=== PATIENT | male | born 1945 | race Caucasian/White ===

== ENCOUNTER → 2018-01-03 | Day surgery (SDC) | payer OTHER ==
[~2018-01-03] MED LIST: FENTANYL CITR 100 MCG/2 ML ONE; FLUMAZENIL 0.1 MG/ML (5 mL VIAL) IV ONE; MIDAZOLAM HCL 2 MG/2 ML INJ ONE
--- OUTSIDE RECORDS SUMMARY | 2018-01-03 08:58 | XMS REPORT ---
:1945 Author Organization [facility] Address [address] [place] [address] Dr. Brown [address] [place] [address] Care Team Providers Name Role Phone CLINTON ACUNA Unavailable Unavailable Problems This patient has no known problems. Allergies, Adverse Reactions, Alerts This patient has no known allergies or adverse reactions. Medications This patient has no known medications. Results Test Description Test Time Test Comments Text Results Atomic Results Result Comments TISSUE EXAM 2016-08-31 15:59:00 Surgical Pathology Report Case: [id number] Authorizing Provider: Clinton Acuna MD Collected: 08/30/2016 0909 Ordering Location: [facility] Endoscopy Received: 08/30/2016 1532 Services Pathologist: Feroz Xiao MD Specimens: A) - Polyp, Colon - Sigmoid, sigmoid polyp B) - Rectum, rectal polyp A. 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 RECTAL POLYP, BIOPSY- FRAGMENTS OF TUBULOVILLOUS ADENOMA- NO DYSPLASIA SEEN AT CAUTERIZED RESECTION MARGIN- NO HIGH-GRADE DYSPLASIA AND NO MALIGNANCY IDENTIFIED 32555 x 2Rectal massA. Sigmoid colon polypB. Rectal polypSpecimen is received in two containers of formalin both labeled with the patient's information.Specimen A: Labeled "sigmoid colon polyp" consists of a suarez-red polyp measuring 3.5 x 2.5 x 1.5 cm. The resection margin is inked blue. The specimen is serially sectioned from one end to the other and submitted entirely in A1-A8.Specimen B: Labeled "rectal polyp" consists of three polyps all measuring 1 cm in greatest dimension with a smaller fragment of suarez tissue 0.6 cm. The polyps are inked with the resection margins bisected and submitted entirely as follows: B1, one polyp; B2, one polyp bisected; B3, one polyp bisected with smaller fragment of tissue. CG/ew A. 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 The lamina propria has mildly increased acute and chronic inflammation. No dysplasia is seen at cauterized resection margin. High-grade dysplasia and malignancy are not seen. B. A. Sections reveal fragments of tubulovillous adenoma with glands and villi showing proliferation of adenomatous epithelium with nuclear stratification. The lamina propria has mildly increased acute and chronic inflammation. No dysplasia is seen at cauterized resection margin. High-grade dysplasia and malignancy are not seen.
--- OUTSIDE RECORDS SUMMARY | 2018-01-03 08:58 | XMS REPORT | Clinical Summary ---
:1945 Author Organization [facility] Address [address] [place] [address] Care Team Providers Name Role Phone Nimesh Bowman MD Primary Care Provider Allergies No Known Allergies Current Medications No known medications Active Problems Problem Noted Date ALIZE (acute kidney injury) (HCC) 07/17/2016 Abdominal aneurysm (HCC) 07/16/2016 S/P abdominal aortic aneurysm repair 07/16/2016 Lethargy 07/16/2016 Anemia due to blood loss 07/16/2016 Thrombocytopenia (HCC) 07/16/2016 Mild Hypercapnia 07/16/2016 Oliguria 07/16/2016 Pre-procedural cardiovascular examination 07/04/2016 Overview: Added automatically from request for surgery [id number] Abdominal aortic aneurysm (AAA) without rupture (HCC) 06/28/2016 Tobacco dependence 06/28/2016 Essential hypertension 06/28/2016 Abnormal stress ECG with treadmill 06/28/2016 Social History Tobacco Use Types Packs/Day Years Used Date Current Every Day Smoker Cigarettes 2 43 Smokeless Tobacco: Never Used Comments: 40 years Alcohol Use Drinks/Week oz/Week Comments Yes 12-16 /every 1 1/2 weeks Sex Assigned at Date Recorded Not on file Last Filed Vital Signs Not on file Plan of Treatment Health Maintenance Due Date Last Done Comments COLON CANCER SCREENING 1993 SHINGRIX VACCINE (#1) 1993 ZOSTER VACCINE 2003 PNEUMOCOCCAL POLYSACCHARIDE VACCINE AGE 65 AND OVER 01/27/2008 PNEUMOCOCCAL-13 01/27/2008 INFLUENZA VACCINE 09/25/2017 Implants Implanted Type Area Senior Controls Technician Device Expiration Model / Identifier Date Serial / Lot Rivera Merino Vasclr Ptfe [id number] 1.65mm - [id number] Vascular N/A: N/A BARD [id number] / Implanted: 07/16/2016 (Quantity not on file) Graft PERIPHERAL / VASCULAR Graft Vasclr Hemashield [place] Thor 2velr Woven 30cm 24mm - [id number] Vascular N/A: Aorta, [employer] 03/27/2021 [id number] / Implanted: 07/16/2016 (Quantity not on file) Graft Abdominal СВЕТЛАНА [id number] / [id number] Results Not on fileafter 01/02/2017 Insurance Payer Benefit Plan / Group Subscriber ID Type Phone Address [facility] x[facility]xxx O Home: [address] [phone] [place] [phone]
--- OUTSIDE RECORDS SUMMARY | 2018-01-03 08:58 | XMS REPORT | Clinical Summary ---
:[address] [facility] Address [address] [place] [address] Care Team Providers Name Role Phone Nimesh Bowman Primary Care Provider Allergies No Known Allergies Medications Medication Sig Dispensed Refills Start Date End Date Status metoprolol (LOPRESSOR) Take 25 mg by 0 Active 25 MG tablet mouth 2 (two) times daily. atorvastatin (LIPITOR) Take 20 mg by 0 Active 20 MG tablet mouth daily. amLODIPine (NORVASC) 5 Take 5 mg by 0 Active MG tablet mouth daily. aspirin 81 MG EC tablet Take 81 mg by 0 Active mouth daily. Active Problems Not on file Social History Tobacco Use Types Packs/Day Years Used Date Former Smoker Quit: 07/16/2016 Smokeless Tobacco: Never Used Tobacco Cessation: Counseling Given: Yes Alcohol Use Drinks/Week oz/Week Comments No Sex Assigned at Date Recorded Not on file Job Start Date Occupation Industry Not on file Not on file Not on file Travel History Travel Start Travel End No recent travel history available. Last Filed Vital Signs Not on file Plan of Treatment Not on file Results Not on fileafter 01/02/2017 Insurance Payer Benefit Plan / Group Subscriber ID Type Phone Address [facility] ChurchPairingSPRING ALL xxxxxxxx Maps Contracted (Home) RO[address] [place] [phone]
[2018-01-03 09:54] LABS: MPV 9.8 fL (7.6-11.3)
[2018-01-03 09:56] LABS: Protime INR 1.15
[2018-01-03 10:25] LABS: Platelet Estimate ADEQ
--- NOTE | 2018-01-03 14:55 | RAD REPORT ---
EXAM DESCRIPTION: US - Biopsy Lymph Node - 01/03/2018 11:40 am CLINICAL HISTORY: Right neck mass. COMPARISON: December 25, 2017. TECHNIQUE: The risks, benefits and alternatives to the procedure were explained to the patient and i nformed consent obtained. Skin and subcutaneous tissues were anesthetized with Lidocaine. Under sonog raphic guidance a 17-gauge needle was placed into the 3.3 cm solid mass within the right posterolater al upper neck. Through this an 18-gauge needle was placed. Three 2 cm core specimens were obtained an d given to pathology. Preliminary report lymphoid material. The patient experienced no immediate complication. The patient was pre-medicated with 2.5 milligrams Versed and 75 micrograms fentanyl intravenously. Vi edward signs were monitored by a nurse. Conscious sedation was performed for approximately 40 minutes. IMPRESSION: Core biopsies of a mass within the right posterolateral neck.
== END | disposition home or self-care (01) ==
LOC: FNA 08:54
PROVIDERS: ATTEND Physician Assistant Medical
DX: R22.1 Localized swelling, mass and lump, neck (principal)
CPT/HCPCS: 36415; 38505; 76942; 85049; 85610; 85730; 88305; 88333; J2250 ×2; J3010

== ENCOUNTER 2018-02-05 07:54 | Day surgery (SDC) | payer OTHER ==
--- NOTE | 2018-01-28 12:01 | EKG ---
Test Date: 2018-01-28 Test Time: 11:29:29 Highway Administrative Engineer: LELAND MEASUREMENT RESULTS: Intervals: Rate: 54 AZ: 162 QRSD: 106 QT: 460 QTc: 436 [place]: P: 60 AZ: 162 QRS: 44 T: 161 INTERPRETIVE STATEMENTS: Sinus bradycardia ST & T wave abnormality, consider lateral ischemia Abnormal ECG Compared to ECG 03/13/2016 14:17:18 Possible ischemia now present Sinus rhythm no longer present Sinus arrhythmia no longer present Prolonged QT interval no longer present ST (T wave) deviation still present Electronically Signed On 01-28-18 12:00:14 PSYCHOLOGICAL AIDE by Juan Hoffman
[2018-01-28 13:30] LABS: MCH 31.7 pg (27.0-35.0); MCV 89.7 fL (80-100); MPV 11.5 fL (7.6-11.3); RBC Red Blood Cell Count 5.13 M/uL (4.33-5.43)
[2018-01-28 15:47] LABS: Blood Morphology Comment NOT SEEN (NOT SEEN); Platelet Estimate ADEQ; Platelets, Giant FEW
--- OUTSIDE RECORDS SUMMARY | 2018-02-05 07:59 | XMS REPORT | Clinical Summary ---
:1945 Author Organization [facility] Address [address] [place] [address] Care Team Providers Name Role Phone Nimesh [...] Not on file Results Not on fileafter 02/04/2017 Insurance Payer Benefit Plan / Group Subscriber ID Type Phone Address [facility] Shayne FoodsSPRING ALL xxxxxxxx Maps Contracted (Home) RO[address] [place] [phone]
--- OUTSIDE RECORDS SUMMARY | 2018-02-05 07:59 | XMS REPORT ---
:1945 [facility] Address [address] [place] [address] [address]. [address] [place] [address] Care Team Providers Name Role Phone CLINTON ACUNA Unavailable Unavailable Problems This patient has no known problems. Allergies, Adverse Reactions, Alerts This patient has no known allergies or adverse reactions. Medications This patient has no known medications. Results Test Description Test Time Test Comments Text Results Atomic Results Result Comments TISSUE EXAM 2016-08-31 15:59:00 Surgical Pathology Report Case: [id number] Authorizing Provider: Clinton Acuna MD Collected: 08/30/2016 0909 Ordering Location: [facility] Endoscopy Received: 08/30/2016 1532 Services Pathologist: [...] NO HIGH-GRADE DYSPLASIA AND NO MALIGNANCY IDENTIFIED [id number] x 2Rectal massA. Sigmoid colon polypB. Rectal [...]
--- OUTSIDE RECORDS SUMMARY | 2018-02-05 07:59 | XMS REPORT | Clinical Summary ---
:1945 Author Organization [facility] Address [address] [place] [address] Care Team Providers Name Role Phone Nimesh Bowman MD Primary Care Provider Allergies No Known Allergies Medications No known medications Active Problems Problem Noted Date ALIZE (acute kidney injury) 07/17/2016 Abdominal aneurysm 07/16/2016 S/P abdominal aortic aneurysm repair 07/16/2016 Lethargy 07/16/2016 Anemia due to blood loss 07/16/2016 Thrombocytopenia 07/16/2016 Mild Hypercapnia 07/16/2016 Oliguria 07/16/2016 Pre-procedural cardiovascular examination 07/04/2016 Overview: Added automatically from request for surgery [id number] Abdominal aortic aneurysm (AAA) without rupture 06/28/2016 Tobacco dependence 06/28/2016 Essential hypertension 06/28/2016 [...] Comments COLON CANCER SCREENING 1993 SHINGRIX VACCINE (1 of 2) 1993 ZOSTER VACCINE 2003 PNEUMOCOCCAL POLYSACCHARIDE VACCINE AGE 65 AND OVER 01/27/2008 PNEUMOCOCCAL-13 01/27/2008 INFLUENZA VACCINE 09/25/2017 Implants Implanted Type Area Postmaster Device Shelf Model / Identifier Expiration Serial / Lot Date [place] Perph Vasclr Ptfe [id number] 1.65mm - [id number] Vascular N/A: N/A BARD [id number] / Implanted: 07/16/2016 (Quantity not on file) Graft PERIPHERAL / VASCULAR Graft Vasclr Hemashield [place] Thor 2velr Woven 30cm 24mm - [id number] Vascular N/A: Aorta, [employer] 03/27/2021 [id number] / Implanted: 07/16/2016 (Quantity not on file) Graft Abdominal СВЕТЛАНА [id number] / [id number] Results Not on fileafter 02/04/2017 Insurance Payer Benefit Plan / Group Subscriber ID Type Phone Address [facility]ONDaintree NetworksADVENTHEALTH [facility] MCR ADV xxxxxxxx O Advance Directives Patient has advance care planning documents on file. For more information, please contact:Antoine Sanchez[address] [place] [address], [place] [address]
[2018-02-05] MEDS ORDERED: CEFAZOLIN 1GM (PREMIX IV) 1 GM/50 ML BAG ONE ×2 (08:19→08:20)
[2018-02-05] MEDS ORDERED: Ringers Lactate 1,000 ML IV ONE (08:19)
[2018-02-05] MEDS ORDERED: FENTANYL CITR 100 MCG/2 ML ONE (10:50)
[2018-02-05] MEDS ORDERED: PROPOFOL 200 MG/20 ML VIAL IV ONE (10:50)
[2018-02-05] MEDS ORDERED: LIDOCAINE 1% MPF 2 ML AMPULE ONE (10:51)
[2018-02-05] MEDS: MEPERIDINE HCL 25 MG/0.5 ML ONE ×2 (12:28→12:33)
[2018-02-05 14:34] VITALS: BP 137/66; TEMP 96.7; O2SAT 97
--- NOTE | 2018-02-06 02:56 | OP ---
Date of Procedure: 02/05/2018 Surgeon: Stefan Cedillo MD Preoperative Diagnoses: Lymphoma, left groin mass. Postoperative Diagnoses: Lymphoma, left groin mass. Procedure: Excision of left groin mass. Estimated Blood Loss: Minimal. Specimen: Left groin mass. Findings: Enlarged lymph node, diseased, positive for lymphoma. Anesthesia: General. Complications: None. Disposition: The patient tolerated the procedure in stable condition, taken to Recovery in good gene ral condition. Procedure In Detail: The patient was brought to the OR and placed in supine position. General anest hesia was begun. The patient was prepped and draped in usual sterile fashion. Marcaine 0.5% was inf iltrated locally. A 15-blade was used to make 4 cm oblique incision in the left groin. Subcutaneous tissue was divided, deep to the subcutaneous tissue, a lymph node was identified and then the pedicl e of the lymph node clamped and lymph node excised approximately 2.5 cm in diameter and sent to Patho logy. Touch prep revealed that indeed it was a lymphoma. The patient required more tissue for luis r delineation of the diagnosis. Subsequently, 3-0 silk used to tie off the pedicle. Wounds irrigate d, bleeding controlled with cautery. Then, 3-0 chromic used for subcutaneous tissue. Danisha were u sed to close the skin. Sterile dressing was applied. The patient was awakened and taken to Recovery in good general condition. Discharge Note: The patient will go to day surgery, then home when stable. Disposition: Home. Condition: Stable. Discharge Instructions: Resume home meds and diet. Activity as tolerated. No heavy lifting. Remov e outer dressing in 2 days. Shower. Keep wound clean and dry. Follow up in my office in 1 week. C all for appointment. Tylenol No. 3, 1 tablet p.o. q.4 p.r.n. pain. /MODL Voice ID: [id number] Report ID: [id number]
== END 2018-02-05 14:05 | disposition home or self-care (01) ==
LOC: OR 07:54
PROVIDERS: ATTEND Surgery
DX: C82.16 Follicular lymphoma grade II, intrapelvic lymph nodes (principal); R22.1 Localized swelling, mass and lump, neck; I10 Essential (primary) hypertension; F17.210 Nicotine dependence, cigarettes, uncomplicated
CPT/HCPCS: 36415; 85025; 88305; 88307; 88333; 93005; J0690; J2001; J2175; J2704; J3010

== ENCOUNTER 2018-02-17 09:39 | Emergency (ER) | payer OTHER ==
--- OUTSIDE RECORDS SUMMARY | 2018-02-17 09:42 | XMS REPORT ---
:1945 [facility] Address [address] [place] [address] [address] Care Team Providers Name Role Phone CLINTON ACUNA Unavailable Unavailable Problems This patient has no known problems. Allergies, Adverse Reactions, Alerts This patient has no known allergies or adverse reactions. Medications This patient has no known medications. Results Test Description Test Time Test Comments Text Results Atomic Results Result Comments TISSUE EXAM 2016-08-31 15:59:00 Surgical Pathology Report Case: [id number] Authorizing Provider: Clinton Acuna MD Collected: 08/30/2016 0909 Ordering Location: [facility] Endoscopy Received: 08/30/2016 1532 Services Pathologist: [...] NO HIGH-GRADE DYSPLASIA AND NO MALIGNANCY IDENTIFIED [id number] x 2Rectal massA. Sigmoid colon polypB. Rectal [...]
--- OUTSIDE RECORDS SUMMARY | 2018-02-17 09:42 | XMS REPORT | Clinical Summary ---
:1945 Author Organization [facility] Address [address] [place] [address] Care Team Providers Name Role Phone Nimesh [...] Not on file Results Not on fileafter 02/16/2017 Insurance Payer Benefit Plan / Group Subscriber ID Type Phone Address [facility]ASTEdventuresSPR[facility] COUNT INCLUDES THE [facility] OpenHatchSPRING ALL xxxxxxxx Maps Contracted (Home) ROAD [address] [place] [phone]
--- OUTSIDE RECORDS SUMMARY | 2018-02-17 09:42 | XMS REPORT | Clinical Summary ---
:1945 Author Organization [facility] Address [address] [place] [address] Care Team Providers Name Role Phone Nimesh [...] Overview: Added automatically from request for surgery [id number] Abdominal aortic aneurysm (AAA) without rupture 06/28/2016 [...] Last Done Comments COLON CANCER SCREENING 1993 SHINGLES VACCINES (1 of 2) 1993 PNEUMOCOCCAL POLYSACCHARIDE VACCINE AGE 65 AND OVER 01/27/2008 PNEUMOCOCCAL-13 01/27/2008 INFLUENZA VACCINE 09/25/2017 Implants Implanted Type Area Inspector Machined Parts Device Shelf Model / Identifier Expiration Serial / Lot Date [place] Perp Vasclr Ptfe [id number] 1.65mm - [id number] Vascular N/A: N/A BARD [id number] / Implanted: 07/16/2016 (Quantity not on file) Graft PERIPHERAL / VASCULAR Graft Vasclr Hemashield [place] Thor 2velr Woven 30cm 24mm - [id number] Vascular N/A: Aorta, [facility] 03/27/2021 [id number] / Implanted: 07/16/2016 (Quantity not on file) Graft Abdominal СВЕТЛАНА [id number] / [id number] Results Not on fileafter 02/16/2017 Insurance Payer Benefit Plan / Group Subscriber ID Type Phone Address [facility]MART[facility] BridesideH[facility] MCR ADV xxxxxxxx O Advance Directives Patient has advance care planning documents on file. For more information, please contact:Antoine Sanchez[address] [place] [address]
[2018-02-17 10:30] LABS: Absolute Lymphocytes (CBC) 1.4 K/uL (0.7-4.9); Absolute Monocytes 1.3 K/uL (0.1-1.3); Absolute Neutrophil 7.7 K/uL (1.8-8.0); Basophils % 0.9 % (0-1.3); Eosinophils % 2.7 % (0-4.4); Hematocrit 45.7 % (39.6-49.0); Lymphocytes % 12.9 % (15.3-44.8); MPV 10.6 fL (7.6-11.3); Monocytes % 11.9 % (3.3-12.3); RBC Red Blood Cell Count 5.08 M/uL (4.33-5.43)
[2018-02-17 10:34] LABS: Protime INR 1.16
[2018-02-17] MEDS ORDERED: METHYLPREDNISOLONE 125 MG INJ ONE (10:35)
[2018-02-17] MEDS ORDERED: CEFTRIAXONE/SWI 1gm 1 GM/10 ML SYR ONE (10:36)
[2018-02-17] MEDS ORDERED: IPRATROPIUM BROM 0.5MG/2.5ML ONE (10:36)
[2018-02-17] MEDS ORDERED: ALBUTEROL 2.5 MG/3 ML NEB SOL ONE (10:36)
[2018-02-17] MEDS ORDERED: AZITHROMYCIN 250 MG TAB ONE (10:36)
[2018-02-17 10:50] LABS: ALT/SGPT 26 U/L (12-78); AST/SGOT 20 U/L (15-37); Albumin 3.6 g/dL (3.4-5.0); Alkaline Phosphatase 97 U/L (45-117); BUN Blood Urea Nitrogen 16 mg/dL (7-18); Bicarbonate 29 mmol/L (21-32); Bilirubin Direct 0.2 mg/dL (0-0.2); Bilirubin Total 0.5 mg/dL (0.2-1.0); Glucose Level 79 mg/dL (74-106); Magnesium 2.4 mg/dL (1.8-2.4); Potassium 3.9 mmol/L (3.5-5.1); Protein, Total 7.8 g/dL (6.4-8.2); Sodium Level 139 mmol/L (136-145); Troponin (Emerg Dept Use Only) < 0.02 ng/mL (0.0-0.045)
--- NOTE | 2018-02-17 11:22 | ER ---
Nurse's Notes [facility] Name: Abraham Stark Age: 73 yrs Sex: Male : 1945 Arrival Date: 02/17/2018 Time: 09:41 Bed 5 Private MD: Nimesh Bowman E Diagnosis: Acute bronchitis;Other chronic obstructive pulmonary disease Presentation: 02/17 09:53 Presenting complaint: Patient states: SOB and productive cough that began 2-3 days ago. aa5 Transition of care: patient was not received from another setting of care. Onset of symptoms was January 2018. Risk Assessment: Do you want to hurt yourself or someone else? Patient reports no desire to harm self or others. Initial Sepsis Screen: Does the patient meet any 2 criteria? No. Patient's initial sepsis screen is negative. Does the patient have a suspected source of infection? No. Patient's initial sepsis screen is negative. Care prior to arrival: None. 09:53 Method Of Arrival: Ambulatory aa5 09:53 Acuity: KIERSTEN 3 aa5 Historical: - Allergies: 09:54 No Known Allergies; aa5 - PMHx: 09:54 Hypertension; aa5 - PSHx: 09:54 Hernia repair; Biopsy (Left groin); aa5 - Immunization history:: Pneumococcal vaccine is up to date, Flu vaccine is up to date. - Social history:: Smoking status: Patient uses tobacco products, smokes one pack cigarettes per day. Patient/guardian denies using alcohol, street drugs, The patient lives with family. - Ebola Screening: : No symptoms or risks identified at this time. - Family history:: not pertinent, pertinent for. Screenin:00 Abuse screen: Denies threats or abuse. Denies injuries from another. Nutritional sg screening: No deficits noted. Tuberculosis screening: No symptoms or risk factors identified. Never had TB. Fall Risk None identified. Assessment: 10:00 General: Appears in no apparent distress. comfortable, well groomed, well developed, sg well nourished, Behavior is calm, cooperative, appropriate for age. Pain: Denies pain. Neuro: No deficits noted. Cardiovascular: Heart tones S1 S2 present Capillary refill is brisk in bilateral fingers Patient's skin is warm and dry. Chest pain is denied. Respiratory: Airway is patent Respiratory effort is even, labored, Respiratory pattern is regular, symmetrical, Breath sounds with wheezes bilaterally. the patient has mild shortness of breath Parent/caregiver reports the patient having shortness of breath at rest , on exertion as well. GI: No signs and/or symptoms were reported involving the gastrointestinal system. : No signs and/or symptoms were reported regarding the genitourinary system. EENT: No signs and/or symptoms were reported regarding the EENT system. Derm: Skin is pink, warm \T\ dry. Musculoskeletal: No signs and/or symptoms reported regarding the musculoskeletal system. Vital Signs: 09:55 BP 146 / 73; Pulse 78; Resp 20 S; Temp 97.7(O); Pulse Ox 98% on R/A; Weight 95.25 kg aa5 (R); Height 5 ft. 9 in. (175.26 cm) (R); Pain 3/10; 09:55 Body Mass Index 31.01 (95.25 kg, 175.26 cm) aa5 09:55 Pt c/o body aching aa5 ED Course: 09:41 Patient arrived in ED. sb2 09:42 Nimesh Bowman MD is Private Physician. sb2 09:53 Triage completed. aa5 09:53 Arm band placed on. aa5 10:00 Patient has correct armband on for positive identification. Bed in low position. Call sg light in reach. Side rails up X2. case monitor on. Pulse ox on. NIBP on. Warm blanket given. Head of bed elevated. 10:07 Paxton Bhatt PA is PHCP. jr8 10:07 Polo Vaughan MD is Attending Physician. jr8 10:10 Paxton Bhatt PA is PHCP. jr8 10:14 Suhail Yates MD is Attending Physician. ma2 10:15 EKG done, by cardiology technician. reviewed by Suhail Yates MD. at1 10:21 Christopher Moore, JODY is Primary Nurse. sg 10:22 Inserted saline lock: 20 gauge in right antecubital area, using aseptic technique. ss Blood collected. 10:24 XRAY Chest (1 view) In Process Unspecified. EDMS Administered Medications: 10:23 Not Given (Other Intervention Used): Rocephin 1 grams IV at calculated rate once; Given sg slow IV push per pharmacy instructions 10:45 Drug: SOLU-Medrol 125 mg Route: IVP; Site: right antecubital; sg 11:20 Follow up: Response: No adverse reaction sg 10:45 Drug: Albuterol - atroVENT (3:1) (2.5 mg - 0.5 mg) 3 ml Route: Nebulizer; sg 11:47 Follow up: Response: No adverse reaction sg 10:45 Drug: AZITHromycin 500 mg Route: PO; sg 11:47 Follow up: Response: No adverse reaction sg 10:45 Drug: Rocephin 1 grams Route: IV; Rate: 1 bolus; Site: right antecubital; sg 12:00 Follow up: Response: No adverse reaction; IV Status: Completed infusion sg 11:50 Drug: Xopenex 1.25 mg Route: Inhalation; Outcome: 11:22 Discharge ordered by MD. sorenson 12:08 Patient left the ED. 3 Signatures: Dispatcher [employer] EDMS Christopher Moore RN RN sg Calderon, Audri, RN RN aa5 Adriana Barnes RN RN ss Roszak, Josh, PA PA jr8 Yuridia Cardona, trolley car overhauler EKG Tat1 Julianna Scott 3 Suhail Yates MD MD ma2 Billeau, Sheri sb2
--- NOTE | 2018-02-17 11:23 | EDPHYS ---
Physician Documentation [facility] Name: Abraham Stark Age: 73 yrs Sex: Male : 1945 Arrival Date: 02/17/2018 Time: 09:41 Bed 5 Private MD: Nimesh Bowman E ED Physician Suhail Yates HPI: 02/17 10:16 This 73 yrs old Male presents to ER via Ambulatory with complaints of ma2 Shortness Of Breath. 10:16 The patient has shortness of breath at rest. Onset: The symptoms/episode began/occurred ma2 gradually, 2 day(s) ago. Duration: The symptoms are continuous. Associated signs and symptoms: Pertinent positives: non-productive cough, Pertinent negatives: chest pain, fever, hemoptysis, loss of consciousness, nausea. Severity of symptoms: At their worst the symptoms were moderate in the emergency department the symptoms are unchanged. The patient has experienced similar episodes in the past. Historical: - Allergies: 09:54 No Known Allergies; aa5 - PMHx: 09:54 Hypertension; aa5 - PSHx: 09:54 Hernia repair; Biopsy (Left groin); aa5 - Immunization history:: Pneumococcal vaccine is up to date, Flu vaccine is up to date. - Social history:: Smoking status: Patient uses tobacco products, smokes one pack cigarettes per day. Patient/guardian denies using alcohol, street drugs, The patient lives with family. - Ebola Screening: : No symptoms or risks identified at this time. - Family history:: not pertinent, pertinent for. ROS: 10:16 Constitutional: Negative for fever, chills, and weight loss. ma2 10:16 Cardiovascular: Negative for chest pain, palpitations, and edema, Abdomen/GI: Negative for abdominal pain, nausea, diarrhea, and constipation, Back: Negative for injury and pain, : Negative for injury, bleeding, discharge, and swelling. 10:16 Respiratory: Positive for cough, shortness of breath, wheezing, Negative for dyspnea on exertion, orthopnea, pleurisy. 10:16 All other systems are negative. Exam: 10:16 Constitutional: This is a well developed, well nourished patient who is awake, alert, ma2 and in no acute distress. Chest/axilla: Normal chest wall appearance and motion. Nontender with no deformity. No lesions are appreciated. Cardiovascular: Regular rate and rhythm with a normal S1 and S2. No gallops, murmurs, or rubs. Normal PMI, no JVD. No pulse deficits. Abdomen/GI: Soft, non-tender, with normal bowel sounds. No distension or tympany. No guarding or rebound. No evidence of tenderness throughout. MS/ Extremity: Pulses equal, no cyanosis. Neurovascular intact. Full, normal range of motion. Neuro: Awake and alert, GCS 15, oriented to person, place, time, and situation. Cranial nerves II-XII grossly intact. Motor strength 5/5 in all extremities. Sensory grossly intact. Cerebellar exam normal. Normal gait. 10:16 ENT: Nares patent. No nasal discharge, no septal abnormalities noted. Tympanic membranes are normal and external auditory canals are clear. Oropharynx with no redness, swelling, or masses, exudates, or evidence of obstruction, uvula midline. Mucous membranes moist. 10:16 Respiratory: moderate respiratory distress is noted, Breath sounds: wheezing: that is moderate, is heard diffusely, Respiratory rate: 20 Vital Signs: 09:55 BP 146 / 73; Pulse 78; Resp 20 S; Temp 97.7(O); Pulse Ox 98% on R/A; Weight 95.25 kg aa5 (R); Height 5 ft. 9 in. (175.26 cm) (R); Pain 3/10; 09:55 Body Mass Index 31.01 (95.25 kg, 175.26 cm) aa5 09:55 Pt c/o body aching aa5 MDM: 10:08 Patient medically screened. jr8 10:16 Differential diagnosis: Anemia Bronchitis Myocardial Infarction pneumonia, pulmonary ma2 edema, reactive airway disease. 10:18 Antibiotic administration: The patient is discharged and will get outpatient nj2 antibiotics. The patient's Wells Deep Vein Thrombosis Score was calculated as follows: No Risks (0 Pts). The patient's pulmonary embolism risk score was calculated as follows: No Risks (0 Pts). 11:21 Immunization status: Pneumococcal vaccine: Influenza vaccine: Data reviewed: vital ma2 signs, nurses notes, diagnostic data from outside facility, lab test result(s), radiologic studies. Counseling: I had a detailed discussion with the patient and/or guardian regarding: the historical points, exam findings, and any diagnostic results supporting the discharge/admit diagnosis, the presence of at least one elevated blood pressure reading (>120/80) during this emergency department visit, radiology results, the need for outpatient follow up. Response to treatment: the patient's symptoms have resolved after treatment. 11:25 ED course: chest xray pending read.. no acute condition on my interpretation . nj02/17 10:10 Order name: Basic Metabolic Panel; Complete Time: 02/17 10:10 Order name: CBC with Diff; Complete Time: 02/17 10:10 Order name: LFT's; Complete Time: 02/17 10:10 Order name: Magnesium; Complete Time: 02/17 10:10 Order name: PT-INR; Complete Time: 02/17 10:10 Order name: Troponin (emerg Dept Use Only); Complete Time: 02/17 10:10 Order name: XRAY Chest (1 view); Complete Time: 02/17 10:16 Order name: Influenza Screen (a \T\ B); Complete Time: nj02/17 10:10 Order name: EKG; Complete Time: 10:02/17 10:10 Order name: Cardiac monitoring; Complete Time: 02/17 10:10 Order name: EKG - Nurse/Tech; Complete Time: 02/17 10:10 Order name: IV Saline Lock; Complete Time: 02/17 10:10 Order name: Labs collected and sent; Complete Time: 02/17 10:10 Order name: O2 Per Protocol; Complete Time: 02/17 10:10 Order name: O2 Sat Monitoring; Complete Time: Administered Medications: 10:23 Not Given (Other Intervention Used): Rocephin 1 grams IV at calculated rate once; Given sg slow IV push per pharmacy instructions 10:45 Drug: SOLU-Medrol 125 mg Route: IVP; Site: right antecubital; sg 11:20 Follow up: Response: No adverse reaction sg 10:45 Drug: Albuterol - atroVENT (3:1) (2.5 mg - 0.5 mg) 3 ml Route: Nebulizer; sg 11:47 Follow up: Response: No adverse reaction sg 10:45 Drug: AZITHromycin 500 mg Route: PO; sg 11:47 Follow up: Response: No adverse reaction sg 10:45 Drug: Rocephin 1 grams Route: IV; Rate: 1 bolus; Site: right antecubital; sg 12:00 Follow up: Response: No adverse reaction; IV Status: Completed infusion sg 11:50 Drug: Xopenex 1.25 mg Route: Inhalation; Disposition: 02/17/18 11:22 Discharged to Home. Impression: Acute bronchitis, Other chronic obstructive pulmonary disease. - Condition is Stable. - Discharge Instructions: Acute Bronchitis, Adult, Asthma, Acute Bronchospasm. - Prescriptions for Zithromax Z- Reg 250 mg Oral Tablet - take 1 tablet by ORAL route as directed for 5 days Day 1 - take two (2) tablets one time. Day 2, 3, 4 , 5 take one (1) tablet once daily.; 6 tablet. Medrol (Reg) 4 mg Oral Tablets, Dose Pack - take 1 tablet by ORAL route as directed - follow package instructions; 1 packet. Albuterol Sulfate 90 mcg/actuation - inhale 1-2 puff by INHALATION route every 4-6 hours; 1 Inhaler. - Medication Reconciliation Form, Thank You Letter, Antibiotic Education, Prescription Opioid Use form. - Follow up: Private Physician; When: Tomorrow; Reason: Continuance of care. Signatures: Dispatcher [employer] EDChristopher Quick RN RN Julisa Mane RN RN aa5 Paxton Bhatt PA PA [facility] Julianna Scott [facility] Suhail Yates MD MD ma2 Corrections: (The following items were deleted from the chart) 11:24 11:22 02/17/2018 11:22 Discharged to Home. Impression: Chronic obstructive pulmonary ma2 disease with (acute) exacerbation. Condition is Stable. Forms are Medication Reconciliation Form, Thank You Letter, Antibiotic Education, Prescription Opioid Use. Follow up: Private Physician; When: Tomorrow; Reason: Continuance of care. ma2 12:08 11:24 02/17/2018 11:22 Discharged to Home. Impression: Acute bronchitis; Other chronic dh3 obstructive pulmonary disease. Condition is Stable. Discharge Instructions: Acute Bronchitis, Adult, Asthma, Acute Bronchospasm. Prescriptions for Zithromax Z-Reg 250 mg Oral Tablet - take 1 tablet by ORAL route as directed for 5 days Day 1 - take two (2) tablets one time. Day 2, 3, 4 , 5 take one (1) tablet once daily.; 6 tablet, Medrol (Rge) 4 mg Oral Tablets, Dose Pack - take 1 tablet by ORAL route as directed - follow package instructions; 1 packet, Albuterol Sulfate 90 mcg/actuation - inhale 1-2 puff by INHALATION route every 4-6 hours; 1 Inhaler. and Forms are Medication Reconciliation Form, Thank You Letter, Antibiotic Education, Prescription Opioid Use. Follow up: Private Physician; When: Tomorrow; Reason: Continuance of care. ma2
--- NOTE | 2018-02-17 11:26 | RAD REPORT ---
EXAM DESCRIPTION: RAD - Chest Single View - 02/17/2018 10:32 am CLINICAL HISTORY: Productive cough, shortness of breath COMPARISON: July 2017 TECHNIQUE: AP portable chest image was obtained 1012 hours . FINDINGS: No focal infiltrate, mass or failure. Lung markings are prominent but not clearly differen t. Heart and vasculature are normal. No measurable pleural effusion and no pneumothorax. No acute bon y abnormality seen. No acute aortic findings suspected. IMPRESSION: No acute cardiopulmonary process. No significant change from comparison.
[2018-02-17] MEDS ORDERED: LEVALBUTEROL 1.25 MG/3 ML NEB ONE (12:01)
--- NOTE | 2018-02-17 14:46 | EKG ---
Test Date: 2018-02-17 Test Time: 10:08:48 Multi Disciplined Language Analyst: MAGGIE MEASUREMENT RESULTS: Intervals: Rate: 60 NJ: 140 QRSD: 108 QT: 442 QTc: 442 [place]: P: 47 NJ: 140 QRS: 52 T: 158 INTERPRETIVE STATEMENTS: Sinus rhythm with marked sinus arrhythmia ST & T wave abnormality, consider lateral ischemia Abnormal ECG Compared to ECG 01/28/2018 11:29:29 Sinus bradycardia no longer present ST (T wave) deviation still present Possible ischemia still present Electronically Signed On 02-17-18 14:44:14 PAYROLL AND BENEFITS ANALYST by Juan Hoffman
== END 2018-02-17 12:08 | disposition home or self-care (01) ==
LOC: ER 09:39
DX: J44.9 Chronic obstructive pulmonary disease, unspecified (principal); R94.31 Abnormal electrocardiogram [ECG] [EKG]; F17.210 Nicotine dependence, cigarettes, uncomplicated
CPT/HCPCS: 36415; 71045; 80048; 80076; 83735; 84484; 85025; 85610; 87804 ×2; 93005; 94640; 96365; 96375; 99285; J0696; J2930

== ENCOUNTER 2018-03-13 17:21 | Observation (INO) | payer OTHER ==
--- OUTSIDE RECORDS SUMMARY | 2018-03-13 17:24 | XMS REPORT ---
:1945 [facility] Address [address] [place] [address] [address] Care Team Providers Name Role Phone CLINTON ACUNA Unavailable Unavailable Problems This patient has no known problems. Allergies, Adverse Reactions, Alerts This patient has no known allergies or adverse reactions. Medications This patient has no known medications. Results Test Description Test Time Test Comments Text Results Atomic Results Result Comments TISSUE EXAM 2016-08-31 15:59:00 Surgical Pathology Report Case: [id number] Authorizing Provider: Clinton Acuna MD Collected: 08/30/2016 0909 Ordering Location: [facility] Endoscopy Received: 08/30/2016 1532 Services Pathologist: Feroz Xioa MD Specimens: A) - Polyp, Colon - Sigmoid, sigmoid polyp B) - Rectum, rectal polyp A. 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 RECTAL POLYP, BIOPSY- FRAGMENTS OF TUBULOVILLOUS ADENOMA- NO DYSPLASIA SEEN AT CAUTERIZED RESECTION MARGIN- NO HIGH-GRADE DYSPLASIA AND NO MALIGNANCY IDENTIFIED [id number] x 2Rectal massA. Sigmoid colon polypB. Rectal [...]
--- OUTSIDE RECORDS SUMMARY | 2018-03-13 17:24 | XMS REPORT | Clinical Summary ---
:1945 Author Organization [facility] Address [address] [place] [address] Care Team Providers Name Role Phone Nimesh [...] Not on file Results Not on fileafter 03/12/2017 Insurance Payer Benefit Plan / Group Subscriber ID Type Phone Address [facility] Self [employer] ALL xxxxxxxx Maps Contracted (Home) [address] [place] [phone]
--- NOTE | 2018-03-13 18:43 | RAD REPORT ---
EXAM DESCRIPTION: Tiffanie Jimenes (2 Views)03/13/2018 6:24 pm CLINICAL HISTORY: Cough COMPARISON: January 2018 FINDINGS: The lungs appear clear of acute infiltrate. The heart is mildly enlarged IMPRESSION: No acute abnormalities displayed
[2018-03-13] MEDS ORDERED: predniSONE 20 MG TAB ONE (19:42)
[2018-03-13] MEDS ORDERED: IPRATROPIUM BROM 0.5MG/2.5ML ONE ×2 (19:42→22:52)
[2018-03-13] MEDS ORDERED: ALBUTEROL 2.5 MG/3 ML NEB SOL ONE ×2 (19:42→22:52)
[2018-03-13 20:12] LABS: Albumin 3.3 g/dL (3.4-5.0); Bilirubin Direct 0.2 mg/dL (0-0.2); Bilirubin Total 0.4 mg/dL (0.2-1.0); Magnesium 2.3 mg/dL (1.8-2.4); Potassium 4.5 mmol/L (3.5-5.1); Protein, Total 7.7 g/dL (6.4-8.2); Troponin (Emerg Dept Use Only) 0.02 ng/mL (0.0-0.045)
[2018-03-13 20:14] LABS: Protime INR 1.16
--- NOTE | 2018-03-13 22:35 | EDPHYS ---
Physician Documentation [facility] Name: Abraham Stark Age: 73 yrs Sex: Male : 1945 Arrival Date: 03/13/2018 Time: 17:23 Bed 13 Private MD: Nimesh Bowman E ED Physician Surendra Andujar HPI: 03/13 22:28 This 73 yrs old Male presents to ER via Ambulatory with complaints of gs Breathing Difficulty, Congestion. 22:28 The patient has shortness of breath at rest, with light activity, during heavy gs activity. Onset: The symptoms/episode began/occurred 3 week(s) ago, and became worse and became persistent. Duration: The symptoms are continuous. The patient's shortness of breath is aggravated by coughing, exertion. Associated signs and symptoms: Pertinent positives: chest pain, non-productive cough, Pertinent negatives: fever. Severity of symptoms: At their worst the symptoms were severe in the emergency department the symptoms are unchanged. The patient has experienced similar episodes in the past, a few times. The patient has not recently seen a physician. Historical: - Allergies: 17:56 No Known Allergies; hb - Home Meds: 17:56 metoprolol tartrate 25 mg Oral tab 1 tab 2 times per day [Active]; hb - PMHx: 17:56 Hypertension; hb - PSHx: 17:56 Hernia repair; Biopsy (Left groin); hb - Immunization history:: Adult Immunizations up to date. - Social history:: Smoking status: Patient uses tobacco products, smokes one pack cigarettes per day. - Ebola Screening: : No symptoms or risks identified at this time. ROS: 22:28 All other systems are negative. gs Exam: 22:28 Head/Face: Normocephalic, atraumatic. Eyes: Pupils equal round and reactive to light, gs extra-ocular motions intact. Lids and lashes normal. Conjunctiva and sclera are non-icteric and not injected. Cornea within normal limits. Periorbital areas with no swelling, redness, or edema. ENT: Nares patent. No nasal discharge, no septal abnormalities noted. Tympanic membranes are normal and external auditory canals are clear. Oropharynx with no redness, swelling, or masses, exudates, or evidence of obstruction, uvula midline. Mucous membranes moist. Neck: Trachea midline, no thyromegaly or masses palpated, and no cervical lymphadenopathy. Supple, full range of motion without nuchal rigidity, or vertebral point tenderness. No Meningismus. Chest/axilla: Normal chest wall appearance and motion. Nontender with no deformity. No lesions are appreciated. Cardiovascular: Regular rate and rhythm with a normal S1 and S2. No gallops, murmurs, or rubs. Normal PMI, no JVD. No pulse deficits. 22:28 Abdomen/GI: Soft, non-tender, with normal bowel sounds. No distension or tympany. No guarding or rebound. No evidence of tenderness throughout. Back: No spinal tenderness. No costovertebral tenderness. Full range of motion. Skin: Warm, dry with normal turgor. Normal color with no rashes, no lesions, and no evidence of cellulitis. MS/ Extremity: Pulses equal, no cyanosis. Neurovascular intact. Full, normal range of motion. Neuro: Awake and alert, GCS 15, oriented to person, place, time, and situation. Cranial nerves II-XII grossly intact. Motor strength 5/5 in all extremities. Sensory grossly intact. Cerebellar exam normal. Normal gait. 22:28 Constitutional: The patient appears alert, awake. 22:28 Constitutional: The patient appears in obvious distress, severely distressed. 22:28 Cardiovascular: Rate: normal, Rhythm: regular. 22:28 ECG was reviewed by the Attending Physician. 22:28 Respiratory: moderate respiratory distress is noted, Respirations: tachypnea, that is moderate, Breath sounds: rhonchi, that are moderate, are heard diffusely, wheezing: that is moderate, is heard diffusely. Vital Signs: 17:55 BP 157 / 101; Pulse 53; Resp 20; Temp 97.7; Pulse Ox 98% on R/A; Pain 0/10; hb 19:00 BP 162 / 79; Pulse 61; Resp 16; Pulse Ox 96% on R/A; jb4 20:00 BP 161 / 80; Pulse 64; Resp 16; Pulse Ox 100% on Nebulizer Mask; jb4 21:00 BP 163 / 87; Pulse 68; Resp 16; Pulse Ox 92% on R/A; jb4 22:00 BP 174 / ???; Pulse 65; Resp 22; Pulse Ox 100% on 2 lpm NC; jb4 23:00 BP 146 / 92; Pulse 73; Resp 24; Pulse Ox 100% on 2 lpm NC; jb4 03/14 00:00 BP 178 / 94; Pulse 65; Resp 22; Pulse Ox 95% on 2 lpm ID; jb4 MDM: 03/13 19:21 Patient medically screened. 22:28 Differential diagnosis: CHF exacerbation, Chronic Obstructive Pulmonary Disease gs Myocardial Infarction pneumonia. Data reviewed: vital signs, nurses notes, lab test result(s), EKG, radiologic studies. Data interpreted: Pulse oximetry: Plan: O2 by NC applied. sats 88-92. Counseling: I had a detailed discussion with the patient and/or guardian regarding: the historical points, exam findings, and any diagnostic results supporting the discharge/admit diagnosis, the need for further work-up and treatment in the hospital. 03/13 19:22 Order name: Basic Metabolic Panel; Complete Time: 21:09 03/13 19:22 Order name: CBC with Diff 03/13 19:22 Order name: LFT's; Complete Time: 21: 03/13 19:22 Order name: Magnesium; Complete Time: 21:09 03/13 19:22 Order name: NT PRO-BNP; Complete Time: 21:09 03/13 19:22 Order name: PT-INR; Complete Time: 21:09 03/13 19:22 Order name: Troponin (emerg Dept Use Only); Complete Time: 21:09 03/13 23:21 Order name: Urinalysis [facility] 03/13 23:21 Order name: CBC with Automated Diff [facility] 03/13 23:21 Order name: CBC with Automated Diff [facility] 03/13 23:21 Order name: Comprehensive Metabolic Panel [facility] 03/13 23:21 Order name: Comprehensive Metabolic Panel [facility] 03/13 23:21 Order name: Magnesium [facility] 03/13 23:21 Order name: Magnesium [facility] 03/13 18:00 Order name: Chest Pa And Lat (2 Views) XRAY; Complete Time: 19:22 sn 03/13 18:00 Order name: EKG; Complete Time: 18:01 [facility] 03/13 18:00 Order name: EKG - Nurse/Tech; Complete Time: 18:51 w 03/13 19:22 Order name: Cardiac monitoring; Complete Time: 19:25 03/13 19:22 Order name: IV Saline Lock; Complete Time: 19:39 03/13 19:22 Order name: Labs collected and sent; Complete Time: 19:39 03/13 23:20 Order name: NPO EDMS 03/13 23:21 Order name: Phosphorus EDMS 03/13 23:21 Order name: Phosphorus EDMS 03/13 23:21 Order name: NT PRO-BNP EDMS 03/13 23:21 Order name: NT PRO-BNP EDMS 03/13 19:22 Order name: O2 Per Protocol; Complete Time: 19:26 03/13 19:22 Order name: O2 Sat Monitoring; Complete Time: 19:25 gs EC:28 Rate is 64 beats/min. Rhythm is regular. [place] interval is normal. QRS interval is gs prolonged. QT interval is normal. T waves are Inverted in leads V5, V6. Clinical impression: NSR w/ Non-specific ST/T Changes and Abnormal EKG without significant change. Interpreted by me. Administered Medications: 19:40 Drug: Albuterol 2.5 mg Route: Inhalation; jb4 23:14 Follow up: Response: No adverse reaction; Wheezing diminished jb4 19:40 Drug: AtroVENT Aerosol 0.5 mg Route: Inhalation; jb4 20:00 Follow up: Response: No adverse reaction; Wheezing diminished jb4 19:40 Drug: predniSONE 40 mg Route: PO; jb4 23:13 Follow up: Response: No adverse reaction jb4 22:45 Drug: Albuterol 2.5 mg Route: Inhalation; jb4 23:13 Follow up: Response: No adverse reaction; Wheezing unchanged jb4 22:45 Drug: AtroVENT Aerosol 0.5 mg Route: Inhalation; jb4 23:12 Follow up: Response: Wheezing unchanged jb4 Disposition: 22:28 Critical Care:. gs Disposition: 03/13/18 22:34 Hospitalization ordered by Suhail Figueroa for Observation. Preliminary diagnosis is Chronic obstructive pulmonary disease with (acute) exacerbation. - Bed requested for Telemetry/MedSurg (observation). - Status is Observation. jb4 - Condition is Stable. - Problem is new. - Symptoms have improved. UTI on Admission? No Critical care time excluding procedures: 22:28 Critical care time: Bedside Care: 10 minutes, Consultation: 10 minutes, Family gs Intervention: 10 minutes. Total time: 30 minutes Signatures: Dispatcher [employer] EDMS Chatterjee, Maria Guadalupe, RN RN Janeen Cordoba, PLASTIC ROLLER-C PLASTIC ROLLER-Csnw Orquidea Graves, RN RN Maikol Da Silva RN RN jb4 Surendra Andujar MD MD Corrections: (The following items were deleted from the chart) 22:44 22:34 Hospitalization Ordered by Suhail Figueroa MD for Observation. Preliminary diagnosis is Chronic obstructive pulmonary disease with (acute) exacerbation. Bed requested for Telemetry/MedSurg (observation). Status is Observation. Condition is Stable. Problem is new. Symptoms have improved. UTI on Admission? No. 03/14 00:03 03/13 22:44 03/13/2018 22:34 Hospitalization Ordered by Suhail Figueroa MD for jb4 Observation. Preliminary diagnosis is Chronic obstructive pulmonary disease with (acute) exacerbation. Bed requested for Telemetry/MedSurg (observation). Status is Observation. Condition is Stable. Problem is new. Symptoms have improved. UTI on Admission? No.
--- NOTE | 2018-03-13 22:35 | ER ---
Nurse's Notes [facility] Name: Abraham Stark Age: 73 yrs Sex: Male : 1945 Arrival Date: 03/13/2018 Time: 17:23 Bed 13 Private MD: Nimesh Bowman E Diagnosis: Chronic obstructive pulmonary disease with (acute) exacerbation Presentation: 03/13 17:53 Presenting complaint: Patient states: Productive cough and SOB x 10 days. Denies fever. hb Transition of care: patient was not received from another setting of care. Onset of symptoms was March 13, 2018. Risk Assessment: Do you want to hurt yourself or someone else? Patient reports no desire to harm self or others. Care prior to arrival: None. 17:53 Method Of Arrival: Ambulatory hb 17:53 Acuity: KIERSTEN 3 hb 18:00 Initial Sepsis Screen: Does the patient meet any 2 criteria? No. Patient's initial rb1 sepsis screen is negative. Does the patient have a suspected source of infection? No. Patient's initial sepsis screen is negative. Triage Assessment: 18:00 Respiratory: Onset: The symptoms/episode began/occurred x 1 week, the patient has mild rb1 shortness of breath. Historical: - Allergies: 17:56 No Known Allergies; hb - Home Meds: 17:56 metoprolol tartrate 25 mg Oral tab 1 tab 2 times per day [Active]; hb - PMHx: 17:56 Hypertension; hb - PSHx: 17:56 Hernia repair; Biopsy (Left groin); hb - Immunization history:: Adult Immunizations up to date. - Social history:: Smoking status: Patient uses tobacco products, smokes one pack cigarettes per day. - Ebola Screening: : No symptoms or risks identified at this time. Screenin:00 Abuse screen: Denies threats or abuse. Nutritional screening: No deficits noted. rb1 Tuberculosis screening: No symptoms or risk factors identified. Fall Risk None identified. Assessment: 18:00 General: Appears in no apparent distress. comfortable, Behavior is calm, cooperative, rb1 Reports fatigue for Denies fever. Pain: Complains of pain in generalized bodyaches Pain currently is 3 out of 10 on a pain scale. Neuro: Level of Consciousness is awake, alert, obeys commands, Oriented to person, place, time, situation. Cardiovascular: Rhythm is irregular. Respiratory: Reports shortness of breath Airway is patent Respiratory effort is even, unlabored, Respiratory pattern is regular, symmetrical. GI: Reports diarrhea, since this morning. : Reports urinates small amounts. Derm: Skin is pink, warm \T\ dry. Musculoskeletal: Range of motion: intact in all extremities. 19:00 Reassessment: Patient appears in no apparent distress at this time. Patient and/or jb4 family updated on plan of care and expected duration. Pain level reassessed. Patient is alert, oriented x 3, equal unlabored respirations, skin warm/dry/pink. 20:00 Reassessment: Patient appears in no apparent distress at this time. Patient and/or jb4 family updated on plan of care and expected duration. Pain level reassessed. Patient is alert, oriented x 3, equal unlabored respirations, skin warm/dry/pink. 21:00 Reassessment: Patient appears in no apparent distress at this time. Patient and/or jb4 family updated on plan of care and expected duration. Pain level reassessed. Patient is alert, oriented x 3, equal unlabored respirations, skin warm/dry/pink. Respiratory: Breath sounds with wheezes bilaterally. 22:00 Reassessment: Patient appears in no apparent distress at this time. Patient and/or jb4 family updated on plan of care and expected duration. Pain level reassessed. Patient is alert, oriented x 3, equal unlabored respirations, skin warm/dry/pink. 23:00 Reassessment: Patient appears in no apparent distress at this time. Patient and/or jb4 family updated on plan of care and expected duration. Pain level reassessed. Patient is alert, oriented x 3, equal unlabored respirations, skin warm/dry/pink. Patient states feeling better. Respiratory: Breath sounds with wheezes bilaterally. 23:22 Reassessment: Attempted to call report, instructed to wait for call back. 4 Vital Signs: 17:55 BP 157 / 101; Pulse 53; Resp 20; Temp 97.7; Pulse Ox 98% on R/A; Pain 0/10; hb 19:00 BP 162 / 79; Pulse 61; Resp 16; Pulse Ox 96% on R/A; jb4 20:00 BP 161 / 80; Pulse 64; Resp 16; Pulse Ox 100% on Nebulizer Mask; jb4 21:00 BP 163 / 87; Pulse 68; Resp 16; Pulse Ox 92% on R/A; jb4 22:00 BP 174 / ???; Pulse 65; Resp 22; Pulse Ox 100% on 2 lpm NC; jb4 23:00 BP 146 / 92; Pulse 73; Resp 24; Pulse Ox 100% on 2 lpm NC; jb4 03/14 00:00 BP 178 / 94; Pulse 65; Resp 22; Pulse Ox 95% on 2 lpm NC; jb4 ED Course: 03/13 17:23 Patient arrived in ED. rg4 17:23 Nimesh Bowman MD is Private Physician. rg4 17:55 Triage completed. hb 17:56 Arm band placed on. hb 18:00 Patient has correct armband on for positive identification. Placed in gown. Bed in low rb1 position. Call light in reach. Side rails up X 1. electronic device monitor on. Pulse ox on. NIBP on. Warm blanket given. 18:04 Rocio Cochran RN is Primary Nurse. rb1 18:06 Patient moved to radiology via wheelchair. az 18:16 X-ray completed. Patient tolerated procedure well. Patient moved back from radiology. az 18:18 Chest Pa And Lat (2 Views) XRAY In Process Unspecified. EDMS 18:51 EKG done, by ED staff. em1 18:55 Report given to JODY Mandujano. rb1 19:04 Surendra Andujar MD is Attending Physician. gs 19:59 Inserted saline lock: 20 gauge in right antecubital area, using aseptic technique. oe Blood collected. 22:33 Suhail Figueroa MD is Hospitalizing Provider. gs 23:54 No provider procedures requiring assistance completed. Patient admitted, IV remains in jb4 place. Administered Medications: 19:40 Drug: Albuterol 2.5 mg Route: Inhalation; jb4 23:14 Follow up: Response: No adverse reaction; Wheezing diminished jb4 19:40 Drug: AtroVENT Aerosol 0.5 mg Route: Inhalation; jb4 20:00 Follow up: Response: No adverse reaction; Wheezing diminished jb4 19:40 Drug: predniSONE 40 mg Route: PO; jb4 23:13 Follow up: Response: No adverse reaction jb4 22:45 Drug: Albuterol 2.5 mg Route: Inhalation; jb4 23:13 Follow up: Response: No adverse reaction; Wheezing unchanged jb4 22:45 Drug: AtroVENT Aerosol 0.5 mg Route: Inhalation; jb4 23:12 Follow up: Response: Wheezing unchanged jb4 Outcome: 22:34 Decision to Hospitalize by Provider. 23:54 Admitted to Tele accompanied by tech, via wheelchair, with oxygen, with chart, Report jb4 called to JODY Wesley 23:54 Condition: stable 23:54 Discharge instructions given to patient, Instructed on the need for admit, Demonstrated understanding of instructions. 03/14 00:03 Patient left the ED. jb4 Signatures: Dispatcher [employer] EDJuan R Obregon em1 Rocio Cochran RN RN rb1 Orquidea Graves RN RN hb Garcia, Rubi 4 Maikol Da Silva RN RN jb4 Carmelo Alegria Gregory, MD MD Anh Valverde Corrections: (The following items were deleted from the chart) 03/13 18:48 18:42 General: Appears in no apparent distress. comfortable, Behavior is calm, rb1 cooperative, Reports fatigue for Denies fever, rb1 18:48 18:42 Pain: Complains of pain in generalized bodyaches Pain currently is 3 out of 10 on rb1 a pain scale. rb1 18:48 18:42 Neuro: Level of Consciousness is awake, alert, obeys commands, Oriented to rb1 person, place, time, situation, rb1 18:48 18:42 Cardiovascular: Rhythm is irregular rb1 rb1 18:48 18:42 Respiratory: Reports shortness of breath Airway is patent Respiratory effort is rb1 even, unlabored, Respiratory pattern is regular, symmetrical, rb1 18:48 18:42 GI: Reports diarrhea, since this morning rb1 rb1 18:48 18:42 : Reports urinates small amounts rb1 rb1 18:48 18:42 Derm: Skin is pink, warm \T\ dry. rb1 rb1 18:48 18:42 Musculoskeletal: Range of motion: intact in all extremities, rb1 rb1 23:24 23:00 Reassessment: Patient appears in no apparent distress at this time. Patient jb4 and/or family updated on plan of care and expected duration. Pain level reassessed. Patient is alert, oriented x 3, equal unlabored respirations, skin warm/dry/pink. jb4
[2018-03-13] MEDS ORDERED: ACETAMINOPHEN 500 MG TAB PO PRN (23:18)
[2018-03-13] MEDS ORDERED: ONDANSETRON 4 MG/2 ML VIAL IV PRN (23:18)
[2018-03-13] MEDS ORDERED: MAGNESIUM HYDROXIDE 8% 30 ML PO PRN (23:18)
[2018-03-13] MEDS ORDERED: NA CHLORIDE 0.9% 1,000 ML IV SCH (23:45)
[2018-03-14 01:30] LABS: Urine Appearance CLEAR; Urine Bilirubin NEGATIVE (NEG); Urine Blood NEGATIVE (NEG); Urine Color YELLOW; Urine Glucose NEGATIVE (NEG); Urine Protein TRACE (NEG); Urine Specific Gravity 1.025 (1.005-1.030); Urine pH 6.5 (5.0-7.0)
[2018-03-14 01:42] LABS: Urine Microscopic Reflex ORDER UMIC
[2018-03-14 01:47] LABS: Urine Bacteria <20 /HPF (NONE SEEN); Urine Culture Reflex Order REFLEXED; Urine RBC <5 /HPF (NONE SEEN)
[2018-03-14] MEDS: IPRATROPIUM BROM 0.5MG/2.5ML NEB SCH ×2 (02:12→07:29)
[2018-03-14] MEDS: ALBUTEROL 2.5 MG/3 ML NEB SOL NEB SCH ×2 (02:12→07:29)
[2018-03-14 05:57] LABS: Albumin 3.2 g/dL (3.4-5.0); Bilirubin Total 0.4 mg/dL (0.2-1.0); Magnesium 2.2 mg/dL (1.8-2.4); Potassium 4.2 mmol/L (3.5-5.1); Protein, Total 7.3 g/dL (6.4-8.2)
[2018-03-14] MEDS ORDERED: POTASS/SODIUM PHOSPHATE 1 PKT POWD.PACK PO SCH (07:00)
[2018-03-14] MEDS ORDERED: CEFTRIAXONE/SWI 1gm 1 GM/10 ML SYR IV SCH (09:00)
[2018-03-14] MEDS ORDERED: ENOXAPARIN 40 MG/0.4 ML SQ SCH (09:00)
[2018-03-14] MEDS ORDERED: AZITHROMYCIN IV 250 MG in NA CHLORIDE 0.9% 250 ML IVPB SCH (09:00)
[2018-03-14] MEDS ORDERED: METOPROLOL XL 25 MG TAB PO SCH (09:00)
[2018-03-14] MEDS: POTASS/SODIUM PHOSPHATE 1 PKT POWD.PACK PO SCH ×2 (10:00→10:12)
[2018-03-14] MEDS ORDERED: METHYLPREDNISOLONE 125 MG INJ IV SCH (12:00)
--- NOTE | 2018-03-14 12:08 | P.CNS ---
Date of Consult: 03/14/18 Reason for Consult: COPD exacerbation and possible sleep apnea Chief Complaint: Shortness of breath History of Present Illness: Patient is 73 years of age with a history of presume COPD admitted with worsening dyspnea for the past month associated with chest congestion cough running nose he was here in the hospital about a month ago discharge never really got better very heavy smoker 1 pack a day this feeling better now he also complains of loud snoring excessive daytime somnolence possibly underlying sleep apnea feeling better since admission Allergies No Known Allergies Allergy (Verified 03/14/18 00:16) Home Medications: Metoprolol Succinate [Toprol Xl*] 50 mg PO BID 09/30/15 Albuterol Sulfate [Proair Hfa] 8.5 gm IH TID PRN 03/14/18 Budesonide/Formoterol Fumarate [Symbicort 80-4.5 Mcg Inhaler] 2 puff IH BID #1 hfa.aer.ad 03/14/18 predniSONE [Prednisone*] 20 mg PO BID #10 tab 03/14/18 - Past Medical/Surgical History Diabetic: No -: Rheumatic fever -: Aortic ANeurysm -: HTN -: COPD -: Non Hodgkins Lymphoma -: Skin Cancer -: Aortic Aneurysm Repair -: Hernia Repair - Family History Mother Medical History: Diabetes - Social History Smoking Status: Current every day smoker Alcohol use: Yes CD- Drugs: No Caffeine use: Yes Place of Residence: Home Review of Systems 10-point ROS is otherwise unremarkable Physical Examination Temp Pulse Resp BP Pulse Ox 97.5 F 82 18 181/93 H 98 03/14/18 08:00 03/14/18 10:12 03/14/18 08:00 03/14/18 10:12 03/14/18 08:00 General: Alert, In no apparent distress, Oriented x3 HEENT: Atraumatic Neck: Supple Respiratory: Expiratory wheezes Cardiovascular: No edema, Regular rate/rhythm, Normal S1 S2 Gastrointestinal: Normal bowel sounds, Soft and benign Musculoskeletal: No clubbing, No contractures Laboratory Data (last 24 hrs) 03/13/18 19:39: PT 13.7 H, INR 1.16 03/13/18 19:39: WBC 7.5, Hgb DETHISTLER OPERATOR, Hct DETHISTLER OPERATOR, Plt Count DETHISTLER OPERATOR 03/13/18 19:39: Sodium 141, Potassium 4.5, BUN 14, Creatinine 1.08, Glucose 93, Magnesium 2.3, Total Bilirubin 0.4, AST 23, ALT 25, Alkaline Phosphatase 100 - Problems (1) COPD exacerbation Current Visit: Yes Status: Acute Plan: Patient is 73 years of age admitted with worsening cough congestion for the past month he is a heavy smoker the 2nd admission I suspect he has exacerbation of underlying COPD chest x-ray shows COPD changes report reviewed patient can be discharged home on Symbicort and prednisone console the patient not use (2) Sleep apnea Current Visit: Yes Status: Acute Plan: Patient complains of excessive daytime somnolence loud snoring he is at risk for sleep apnea and will need outpatient sleep study Qualifiers: Sleep apnea type: unspecified type Qualified Code(s): G47.30 - Sleep apnea , unspecified
--- NOTE | 2018-03-14 12:40 | P.HP ---
Certification for Inpatient Patient admitted to: Observation With expected LOS: <2 Midnights Patient will require the following post-hospital care: None Practitioner: I am a practitioner with admitting privileges, knowledge of patient current condition, hospital course, and medical plan of care. Services: Services provided to patient in accordance with Admission requirements found in Title 42 Section 412.3 of the Code of Federal Regulations Patient History Date of Service: 03/14/18 Reason for admission: Shortness of breath History of Present Illness: Patient is a 73-year-old gentleman who came to the hospital with difficulty breathing. Patient was having cough, congestion along with fevers. He was very short of breath. He came to the ER and his workup revealed he had COPD exacerbation. Patient was started on nebs, steroids, and antibiotics. His clinical symptoms have slightly improved. He is still coughing and wheezing significantly. Patient's BNP was also elevated. Concerning for congestive heart failure along with secondary COPD. At this time patient will be admitted to the hospital for further evaluation. Patient will get pulmonary consultation as well as echocardiogram. Await echocardiogram results prior to the diuresing. Patient will need observation. Allergies No Known Allergies Allergy (Verified 03/14/18 00:16) Home Medications: Metoprolol Succinate [Toprol Xl*] 50 mg PO BID 09/30/15 Albuterol Sulfate [Proair Hfa] 8.5 gm IH TID PRN 03/14/18 Budesonide/Formoterol Fumarate [Symbicort 80-4.5 Mcg Inhaler] 2 puff IH BID #1 hfa.aer.ad 03/14/18 predniSONE [Prednisone*] 20 mg PO BID #10 tab 03/14/18 - Past Medical/Surgical History Has patient received pneumonia vaccine in the past: Yes Diabetic: No -: Rheumatic fever -: Aortic ANeurysm -: HTN -: COPD -: Non Hodgkins Lymphoma -: Skin Cancer -: Aortic Aneurysm Repair -: Hernia Repair - Family History Mother Medical History: Diabetes - Social History Alcohol use: Yes CD- Drugs: No Caffeine use: Yes Place of Residence: Home Review of Systems 10-point ROS is otherwise unremarkable Physical Examination - Vital Signs Temperature: 97.5 F Blood Pressure: 181/93 Pulse: 82 Respirations: 18 Pulse Ox (%): 98 - Physical Exam General: Alert, In no apparent distress, Oriented x3 HEENT: Atraumatic, PERRLA, Mucous membr. moist/pink, EOMI, Sclerae nonicteric Neck: Supple, 2+ carotid pulse no bruit, No LAD, Without JVD or thyroid abnormality Respiratory: Crackles/rales Cardiovascular: Regular rate/rhythm, Normal S1 S2, Systolic murmur Gastrointestinal: Normal bowel sounds, Soft and benign, Non-distended, No tenderness Musculoskeletal: No tenderness, Swelling Integumentary: No rashes Neurological: Normal gait, Normal speech, Normal strength at 5/5 x4 extr, Normal tone, Sensation intact, Normal affect Lymphatics: No axilla or inguinal lymphadenopathy - Studies Laboratory Data (last 24 hrs) 03/13/18 19:39: PT 13.7 H, INR 1.16 03/13/18 19:39: WBC 7.5, Hgb SUBSTATION OPERATOR, Hct SUBSTATION OPERATOR, Plt Count SUBSTATION OPERATOR 03/13/18 19:39: Sodium 141, Potassium 4.5, BUN 14, Creatinine 1.08, Glucose 93, Magnesium 2.3, Total Bilirubin 0.4, AST 23, ALT 25, Alkaline Phosphatase 100 Assessment & Plan - Problems (Diagnosis) (1) History of non-Hodgkin's lymphoma Status: Acute (2) COPD exacerbation Status: Acute (3) Sleep apnea Status: Acute Qualifiers: Sleep apnea type: unspecified type Qualified Code(s): G47.30 - Sleep apnea , unspecified - Plan -nebs, steroids, and antibiotics -O2 per protocol. -Echocardiogram to further assess cardiac functioning -repeat labs including B and P -repeat chest x-ray -pulmonary consultation Discharge Plan: Home Plan to discharge in: 48 Hours - Advance Directives Does patient have a Living Will: No Does patient have a Durable POA for Healthcare: No - Code Status/Comfort Care Code Status Assessed: Yes Code Status: Full Code Critical Care: No Time Spent Managing PTS Care (In Minutes): 45
--- NOTE | 2018-03-14 13:59 | EKG ---
Test Date: 2018-03-14 Test Time: 09:58:06 Manager New Product: MIROSLAVA MEASUREMENT RESULTS: Intervals: Rate: 85 MD: 166 QRSD: 102 QT: 412 QTc: 490 [place]: P: 70 MD: 166 QRS: 105 T: -12 INTERPRETIVE STATEMENTS: Normal sinus rhythm Rightward axis Nonspecific ST abnormality Abnormal QRS-T angle, consider primary T wave abnormality Prolonged QT Abnormal ECG Compared to ECG 03/13/2018 18:45:50 Right-axis deviation now present T-wave abnormality now present Sinus arrhythmia no longer present ST (T wave) deviation still present Electronically Signed On 03-14-18 13:58:35 ORNAMENT STITCHER by Juan Hoffman
--- NOTE | 2018-03-14 14:03 | EKG ---
Test Date: 2018-03-13 Test Time: 18:45:50 [employer]: SHANNAN MEASUREMENT RESULTS: Intervals: Rate: 64 VA: 164 QRSD: 108 QT: 460 QTc: 474 [place]: P: 53 VA: 164 QRS: 13 T: 88 INTERPRETIVE STATEMENTS: Sinus rhythm with marked sinus arrhythmia Nonspecific ST and T wave abnormality Prolonged QT Abnormal ECG Compared to ECG 02/17/2018 10:08:48 Prolonged QT interval now present Possible ischemia no longer present ST (T wave) deviation still present Electronically Signed On 03-14-18 13:59:02 MYSQL DATABASE ADMINISTRATOR by Juan Hoffman
--- NOTE | 2018-03-14 14:29 | ECHO ---
HEIGHT: 5 ft 8 in WEIGHT: 187 lb 8 oz DATE OF STUDY: 03/14/[address]: Suhail Figueroa MD 2-DIMENSIONAL: YES M.MODE: YES DOPPLER: YES COLOR FLOW: YES TDS: NO PORTABLE: NO DEFINITY: NO BUBBLE STUDY: NO DIAGNOSIS: ELEVATED BNP CARDIAC HISTORY: CATHERIZATION: NO SURGERY: NO PROSTHETIC VALVE: NO PACEMAKER: NO MEASUREMENTS (cm) DIASTOLIC (NORMALS) SYSTOLIC (NORMALS) IVSd 1.2 (0.6-1.2) LA Diam 4.3 (1.9-4.0) LVEF 41% LVIDd 5.6 (3.5-5.7) LVIDs 4.5 (2.0-3.5) %FS 20% LVPWd 1.4 (0.6-1.2) Ao Diam 3.2 (2.0-3.7) 2 DIMENSIONAL ASSESSMENT: RIGHT ATRIUM: NORMAL LEFT ATRIUM: DILATED RIGHT VENTRICLE: NORMAL LEFT VENTRICLE: LEFT VENTRICULAR HYPERTROPHY TRICUSPID VALVE: NORMAL MITRAL VALVE: NORMAL PULMONIC VALVE: NORMAL AORTIC VALVE: SCLEROTIC PERICARDIAL EFFUSION: NONE AORTIC ROOT: NORMAL LEFT VENTRICULAR WALL MOTION: MILD GLOBAL HYPOKINESIS. DOPPLER/COLOR FLOW: NORMAL. COMMENTS: MILD GLOBAL HYPOKINESIS- EJECTION FRACTION 41%. LEFT VENTRICULAR HYPERTROPHY. LEFT ATRIAL ENLARGEMENT. AORTIC SCLEROSIS. TECHNOLOGIST: ESTRADA RIVERA RDCS
[2018-03-14] MEDS ORDERED: predniSONE 20 MG TAB PO SCH (21:00)
== END 2018-03-14 12:20 | disposition home or self-care (01) ==
LOC: ER 17:21 → ERHOLD 23:26 → INTOOBSV 23:26 → 4TH 23:51
PROVIDERS: ADMIT Hospitalist; ATTEND Hospitalist
DX: J44.1 Chronic obstructive pulmonary disease with (acute) exacerbation (principal); G47.30 Sleep apnea, unspecified; Z85.72 Personal history of non-Hodgkin lymphomas
CPT/HCPCS: 36415; 71046; 80048; 80053; 80076; 83735 ×2; 83880 ×2; 84100; 84484; 85025 ×2; 85610; 87086; 87088; 93005 ×2; 93306; G0378 ×2; J0456; J1650; J2930; J7030; 81003; 81015; J7512

== ENCOUNTER 2018-08-29 17:21 | Emergency (ER) | payer OTHER ==
--- OUTSIDE RECORDS SUMMARY | 2018-08-29 17:23 | XMS REPORT | Clinical Summary ---
:1945 Author Organization [facility] Address [address] [place] [address] Care Team Providers Name Role Phone Nimesh [...] Not on file Results Not on fileafter 08/28/2017 Insurance Payer Benefit Plan / Group Subscriber ID Type Phone Address [employer] [employer] xxxxxxxx Maps Contracted (Home) [address] [place] [phone]
--- OUTSIDE RECORDS SUMMARY | 2018-08-29 17:23 | XMS REPORT | Clinical Summary ---
:1945 Author Organization [facility] Address [address] [place] [id number] Care Team Providers Name Role Phone Nimesh [...] Overview: Added automatically from request for surgery [id number] Abdominal aortic aneurysm (AAA) without rupture 06/28/2016 [...] Health Maintenance Due Date Last Done Comments COLONOSCOPY SCREENING 1993 SHINGLES VACCINES (#1) 1993 65+ PNEUMOCOCCAL VACCINE (1 of 2 - PCV13) 01/27/2008 INFLUENZA VACCINE 09/25/2018 Implants Implanted Type Area Head Of Science Device Shelf Model / Identifier Expiration Serial / Lot Date Rivera Merino Vasclr Ptfe [id number] 1.65mm - [id number] Vascular N/A: N/A BARD [id number] / Implanted: 07/16/2016 (Quantity not on file) Graft PERIPHERAL / VASCULAR Graft Vasclr Hemashield Sumner Thor 2velr Woven 30cm 24mm - [id number] Vascular N/A: Aorta, [employer] 03/27/2021 [id number] / Implanted: 07/16/2016 (Quantity not on file) Graft Abdominal СВЕТЛАНА [id number] / [id number] Results Not on fileafter 08/28/2017 Insurance Payer Benefit Plan / Subscriber ID Effective Dates Phone Address Type Group [facility] xxxxxxxx 2016-Prese O O MCR ADV nt Advance Directives Patient has advance care planning documents on file. For more information, please contact:Antoine Sanchez[address] [place] [address], [place] [address]
--- OUTSIDE RECORDS SUMMARY | 2018-08-29 17:24 | XMS REPORT ---
:1945 [facility] Address [address] [place] [address] [address] Care Team Providers Name Role Phone CLINTON ACUNA Unavailable Unavailable Problems This patient has no known problems. Allergies, Adverse Reactions, Alerts This patient has no known allergies or adverse reactions. Medications This patient has no known medications. Results Test Description Test Time Test Comments Text Results Atomic Results Result Comments TISSUE EXAM 2016-08-31 15:59:00 Surgical Pathology Report Case: [id number] Authorizing Provider: Clinton Acuna MD Collected: 08/30/2016 0909 Ordering Location: [facility] Endoscopy Received: 08/30/2016 1532 Services [...] NO HIGH-GRADE DYSPLASIA AND NO MALIGNANCY IDENTIFIED [id number] x 2Rectal massA. Sigmoid colon polypB. Rectal [...]
[2018-08-29 18:17] LABS: Absolute Lymphocytes (CBC) 1.7 K/uL (0.7-4.9); Basophils % 0.6 % (0-1.3); Eosinophils % 1.2 % (0-4.4); Hematocrit 45.4 % (39.6-49.0); Lymphocytes % 15.4 % (15.3-44.8); MPV 10.5 fL (7.6-11.3); Monocytes % 7.9 % (3.3-12.3); RBC Red Blood Cell Count 4.99 M/uL (4.33-5.43)
[2018-08-29 18:18] LABS: Protime INR 1.1
[2018-08-29] MEDS ORDERED: NA CHLORIDE 0.9% 1,000 ML ONE (18:22)
[2018-08-29] MEDS ORDERED: NA CHLORIDE 0.9% 250 ML ONE (18:22)
[2018-08-29] MEDS ORDERED: AZITHROMYCIN 500 MG INJ IVPB ONE (18:22)
[2018-08-29] MEDS ORDERED: METHYLPREDNISOLONE 125 MG INJ ONE (18:22)
[2018-08-29] MEDS ORDERED: ALBUTEROL 2.5 MG/3 ML NEB SOL ONE ×3 (18:22→20:08)
[2018-08-29] MEDS ORDERED: IPRATROPIUM BROM 0.5MG/2.5ML ONE (18:22)
[2018-08-29] MEDS ORDERED: CEFTRIAXONE/SWI 1gm 2 GM/20 ML SYR ONE (18:22)
[2018-08-29 18:31] LABS: ALT/SGPT 27 U/L (12-78); AST/SGOT 21 U/L (15-37); Albumin 3.6 g/dL (3.4-5.0); Alkaline Phosphatase 100 U/L (45-117); BUN Blood Urea Nitrogen 18 mg/dL (7-18); Bicarbonate 27 mmol/L (21-32); Bilirubin Direct 0.1 mg/dL (0-0.2); Bilirubin Total 0.4 mg/dL (0.2-1.0); Glucose Level 87 mg/dL (74-106); Magnesium 2.2 mg/dL (1.8-2.4); NT PRO-BNP 1355 pg/mL (<450); Potassium 3.6 mmol/L (3.5-5.1); Protein, Total 7.4 g/dL (6.4-8.2); Sodium Level 141 mmol/L (136-145); Troponin (Emerg Dept Use Only) < 0.02 ng/mL (0.0-0.045)
--- NOTE | 2018-08-29 18:35 | RAD REPORT ---
EXAM DESCRIPTION: RAD - Chest Single View - 08/29/2018 6:08 pm CLINICAL HISTORY: Shortness of breath, productive cough COMPARISON: February 2018 TECHNIQUE: AP portable chest image was obtained 1804 hours . FINDINGS: No focal lung parenchymal process. No failure or volume overload. Lung markings match the comparison. Heart and vasculature are normal. No measurable pleural effusion and no pneumothorax. No acute bony abnormality seen. No acute aortic findings suspected. IMPRESSION: No acute cardiopulmonary process. No significant interval change.
--- NOTE | 2018-08-29 20:05 | EDPHYS ---
Physician Documentation [facility] Name: Abraham Stark Age: 73 yrs Sex: Male : 1945 Arrival Date: 08/29/2018 Time: 17:23 Bed 26 Private MD: Nimesh Bowman E ED Physician Polo Vaughan HPI: 08/29 17:50 This 73 yrs old Male presents to ER via Ambulatory with complaints of gabby Breathing Difficulty, Congestion. 17:50 The patient has shortness of breath at rest, with light activity. Onset: The gabby symptoms/episode began/occurred 14 day(s) ago. Duration: The symptoms are continuous, and are steadily getting worse. The patient's shortness of breath is aggravated by coughing, exertion, light activity, is alleviated by nebulizer treatment, rest, application of supplemental oxygen. Associated signs and symptoms: The patient has no apparent associated signs or symptoms. Severity of symptoms: At their worst the symptoms were mild moderate in the emergency department the symptoms have improved mildly. The patient has experienced similar episodes in the past, multiple times. Historical: - Allergies: 17:39 No Known Allergies; hb - Home Meds: 17:39 metoprolol tartrate 25 mg Oral tab 1 tab 2 times per day [Active]; losartan 50 mg oral hb tab 1 tab once daily [Active]; - PMHx: 17:39 Hypertension; hb 17:39 NonHodgkin's Lymphoma; hb - PSHx: 17:39 Hernia repair; Biopsy (Left groin); hb - Immunization history:: Adult Immunizations up to date. - Social history:: Smoking status: Patient uses tobacco products, smokes one pack cigarettes per day. - Ebola Screening: : No symptoms or risks identified at this time. - Family history:: not pertinent. ROS: 17:50 Constitutional: Negative for fever, chills, and weight loss, Eyes: Negative for injury, gabby pain, redness, and discharge, ENT: Negative for injury, pain, and discharge, Neck: Negative for injury, pain, and swelling, Cardiovascular: Negative for chest pain, palpitations, and edema, Abdomen/GI: Negative for abdominal pain, nausea, vomiting, diarrhea, and constipation, Back: Negative for injury and pain, : Negative for injury, bleeding, discharge, and swelling, MS/Extremity: Negative for injury and deformity, Skin: Negative for injury, rash, and discoloration, Neuro: Negative for headache, weakness, numbness, tingling, and seizure, Psych: Negative for depression, anxiety, suicide ideation, homicidal ideation, and hallucinations, Allergy/Immunology: Negative for hives, rash, and allergies, Endocrine: Negative for neck swelling, polydipsia, polyuria, polyphagia, and marked weight changes, Hematologic/Lymphatic: Negative for swollen nodes, abnormal bleeding, and unusual bruising. 17:50 Respiratory: Positive for cough, shortness of breath, wheezing, inspiratory, expiratory. Exam: 17:50 Constitutional: This is a well developed, well nourished patient who is awake, alert, gabby and in no acute distress. Head/Face: Normocephalic, atraumatic. Eyes: Pupils equal round and reactive to light, extra-ocular motions intact. Lids and lashes normal. Conjunctiva and sclera are non-icteric and not injected. Cornea within normal limits. Periorbital areas with no swelling, redness, or edema. ENT: Nares patent. No nasal discharge, no septal abnormalities noted. Tympanic membranes are normal and external auditory canals are clear. Oropharynx with no redness, swelling, or masses, exudates, or evidence of obstruction, uvula midline. Mucous membranes moist. Neck: Trachea midline, no thyromegaly or masses palpated, and no cervical lymphadenopathy. Supple, full range of motion without nuchal rigidity, or vertebral point tenderness. No Meningismus. Chest/axilla: Normal chest wall appearance and motion. Nontender with no deformity. No lesions are appreciated. Cardiovascular: Regular rate and rhythm with a normal S1 and S2. No gallops, murmurs, or rubs. Normal PMI, no JVD. No pulse deficits. Abdomen/GI: Soft, non-tender, with normal bowel sounds. No distension or tympany. No guarding or rebound. No evidence of tenderness throughout. Back: No spinal tenderness. No costovertebral tenderness. Full range of motion. Male : Normal genitalia with no discharge or lesions. Skin: Warm, dry with normal turgor. Normal color with no rashes, no lesions, and no evidence of cellulitis. MS/ Extremity: Pulses equal, no cyanosis. Neurovascular intact. Full, normal range of motion. Neuro: Awake and alert, GCS 15, oriented to person, place, time, and situation. Cranial nerves II-XII grossly intact. Motor strength 5/5 in all extremities. Sensory grossly intact. Cerebellar exam normal. Normal gait. Psych: Awake, alert, with orientation to person, place and time. Behavior, mood, and affect are within normal limits. 17:50 Respiratory: the patient does not display signs of respiratory distress, Respirations: labored breathing, is not present, Breath sounds: bronchial sounds, decreased breath sounds, rhonchi, wheezing: inspiratory expiratory 17:52 Musculoskeletal/extremity: DVT Exam: No signs of deep vein thrombosis. no pain, no gabby swelling, no tenderness, negative Homans' sign noted on exam, no appreciated bluish discoloration, no erythema, no increased warmth. Vital Signs: 17:39 BP 171 / 94; Pulse 63; Resp 18; Temp 97.9; Pulse Ox 96% on R/A; Weight 86.18 kg; Height hb 5 ft. 9 in. (175.26 cm); Pain 3/10; 18:34 BP 166 / 114; Pulse 67; Resp 18 S; Pulse Ox 100% on Nebulizer Mask; ca1 19:15 BP 146 / 83; Pulse 74; Resp 18 S; Pulse Ox 100% on Nebulizer Mask; ca1 19:42 BP 144 / 78; Pulse 80; Resp 20 S; Temp 97.5(O); Pulse Ox 97% on R/A; ca1 20:22 BP 138 / 76; Pulse 81; Resp 19; Temp 98; Pulse Ox 97% on R/A; rv 17:39 Body Mass Index 28.06 (86.18 kg, 175.26 cm) hb MDM: 17:48 Patient medically screened. [facility] 17:52 Data reviewed: vital signs, nurses notes, lab test result(s), EKG, radiologic studies, [facility] plain films. 08/29 17:50 Order name: Basic Metabolic Panel [facility] 08/29 17:50 Order name: CBC with Diff [facility] 08/29 17:50 Order name: LFT's [facility] 08/29 17:50 Order name: Magnesium [facility] 08/29 17:50 Order name: NT PRO-BNP; Complete Time: 18:49 [facility] 08/29 17:50 Order name: PT-INR; Complete Time: 18:49 [facility] 08/29 17:50 Order name: Troponin (emerg Dept Use Only); Complete Time: 18:49 [facility] 08/29 17:50 Order name: Blood Culture Adult (2) [facility] 08/29 17:50 Order name: Lactate; Complete Time: 18:49 [facility] 08/29 17:50 Order name: Procalcitonin; Complete Time: 18:49 [facility] 08/29 17:50 Order name: Influenza Screen (a \T\ B); Complete Time: 18:49 [facility] 08/29 17:51 Order name: Basic Metabolic Panel; Complete Time: 18:49 [facility] 08/29 17:51 Order name: CBC with Automated Diff; Complete Time: 18:49 [facility] 08/29 17:52 Order name: Liver (Hepatic) Function; Complete Time: 18:49 [facility] 08/29 17:50 Order name: XRAY Chest (1 view); Complete Time: 18:49 [facility] 08/29 17:50 Order name: EKG; Complete Time: 17:52 [facility] 08/29 17:50 Order name: Cardiac monitoring; Complete Time: 19:09 [facility] 08/29 17:50 Order name: EKG - Nurse/Tech; Complete Time: 19:09 [facility] 08/29 17:50 Order name: IV Saline Lock; Complete Time: 18:14 [facility] 08/29 17:50 Order name: Labs collected and sent; Complete Time: 18:14 [facility] 08/29 17:50 Order name: O2 Per Protocol; Complete Time: 18:14 [facility] 08/29 17:52 Order name: Magnesium; Complete Time: 18:49 [facility] 08/29 17:50 Order name: O2 Sat Monitoring; Complete Time: 18:14 [facility] Administered Medications: 18:00 Drug: NS 0.9% 1000 ml Route: IV; Rate: 1 bolus; Site: right antecubital; ca1 19:00 Follow up: Urine output 200 ml; Response: No adverse reaction; IV Status: Completed ca1 infusion 18:13 Drug: SOLU-Medrol 125 mg Route: IVP; Site: right antecubital; ca1 20:20 Follow up: Response: Marked relief of symptoms rv 18:13 Drug: Albuterol - atroVENT (3:1) (2.5 mg - 0.5 mg) 3 ml Route: Nebulizer; ca1 20:20 Follow up: Response: Marked relief of symptoms rv 18:45 Drug: Rocephin 2 grams Route: IV; Rate: per protocol; Site: right antecubital; rv 20:19 Follow up: IV Status: Completed infusion rv 18:55 Drug: predniSONE 60 mg Route: PO; ca1 20:19 Follow up: Response: No adverse reaction rv 18:58 Drug: Zithromax 500 mg Route: IVPB; Infused Over: 1 hrs; Site: right antecubital; rv 20:19 Follow up: IV Status: Completed infusion; IV Intake: 250ml rv 19:00 Drug: Albuterol 5 mg Route: Inhalation; ca1 20:19 Follow up: Response: Marked relief of symptoms rv 19:54 Drug: Albuterol 5 mg Route: Inhalation; rv 20:19 Follow up: Response: Marked relief of symptoms rv Disposition: 08/29/18 19:41 Discharged to Home. Impression: Dyspnea, Chronic obstructive pulmonary disease with (acute) exacerbation, Tobacco abuse counseling, Tobacco use. - Condition is Stable. - Discharge Instructions: Chronic Bronchitis, Chronic Obstructive Pulmonary Disease, How to Use an Inhaler, Steps to Quit Smoking, Smoking Hazards, Steps to Quit Smoking, [id number], Cough, Adult, [id number], How to Use a Nebulizer, Cough, Adult. - Prescriptions for Albuterol Sulfate 2.5 mg /3 mL (0.083 %) Inhalation Solution for Nebulization - inhale 1 unit by NEBULIZATION route every 8 hours As needed; 1 box. Prednisone 20 mg Oral Tablet - take 2 tablet by ORAL route once daily for 5 days; 10 tablet. Albuterol Sulfate 90 mcg/actuation - inhale 1-2 puff by INHALATION route every 4-6 hours; 1 Inhaler. Zithromax 500 mg Oral Tablet - take 1 tablet by ORAL route once daily for 5 days; 5 tablet. - Medication Reconciliation Form, Thank You Letter, Antibiotic Education, Prescription Opioid Use form. - Follow up: Nimesh Bowman; When: 2 - 3 days; Reason: Recheck today's complaints, Continuance of care, Re-evaluation by your physician. Follow up: Too Burgess; When: 2 - 3 days; Reason: Recheck today's complaints, Re-evaluation by your physician. - Problem is new. - Symptoms have improved. Signatures: Dispatcher [employer] EDPolo Muñoz MD MD cha Baxter, Heather, RN RN hb Vicente, Ronaldo, RN RN rv Marah, JDOY Terrazas RN ca1 Corrections: (The following items were deleted from the chart) 20:22 19:41 08/29/2018 19:41 Discharged to Home. Impression: Dyspnea; Chronic obstructive rv pulmonary disease with (acute) exacerbation; Tobacco abuse counseling; Tobacco use. Condition is Stable. Discharge Instructions: Chronic Bronchitis, Chronic Obstructive Pulmonary Disease, How to Use an Inhaler, Steps to Quit Smoking, Smoking Hazards, Steps to Quit Smoking, [id number], Cough, Adult, Mhmi-yk-[id number], How to Use a Nebulizer, Cough, Adult. Prescriptions for Albuterol Sulfate 2.5 mg /3 mL (0.083 %) Inhalation Solution for Nebulization - inhale 1 unit by NEBULIZATION route every 8 hours As needed; 1 box, Prednisone 20 mg Oral Tablet - take 2 tablet by ORAL route once daily for 5 days; 10 tablet, Albuterol Sulfate 90 mcg/actuation - inhale 1-2 puff by INHALATION route every 4-6 hours; 1 Inhaler, Zithromax 500 mg Oral Tablet - take 1 tablet by ORAL route once daily for 5 days; 5 tablet. and Forms are Medication Reconciliation Form, Thank You Letter, Antibiotic Education, Prescription Opioid Use. Follow up: Nimesh Bowman; When: 2 - 3 days; Reason: Recheck today's complaints, Continuance of care, Re-evaluation by your physician. Follow up: Too Burgess; When: 2 - 3 days; Reason: Recheck today's complaints, Re-evaluation by your physician. Problem is new. Symptoms have improved. gabby
--- NOTE | 2018-08-29 20:05 | ER ---
Nurse's Notes [facility] Name: Abraham Stark Age: 73 yrs Sex: Male : 1945 Arrival Date: 08/29/2018 Time: 17:23 Bed 26 Private MD: Nimesh Bowman E Diagnosis: Dyspnea;Chronic obstructive pulmonary disease with (acute) exacerbation;Tobacco abuse counseling;Tobacco use Presentation: 08/29 17:37 Presenting complaint: Worsening, SOB, productive cough with yellowish sputum, and body hb aches x 2 weeks. Transition of care: patient was not received from another setting of care. Onset of symptoms is unknown. Risk Assessment: Do you want to hurt yourself or someone else? Patient reports no desire to harm self or others. Care prior to arrival: None. 17:37 Method Of Arrival: Ambulatory 17:37 Acuity: KIERSTEN 3 iw 20:21 Initial Sepsis Screen: Does the patient meet any 2 criteria? No. Patient's initial rv sepsis screen is negative. Does the patient have a suspected source of infection? No. Patient's initial sepsis screen is negative. Triage Assessment: 19:30 Respiratory: Onset: The symptoms/episode began/occurred gradually, the patient has mild rv shortness of breath. Respiratory: Breath sounds with wheezes bilaterally. 19:30 General: Appears in no apparent distress. uncomfortable. General: Appears Behavior is rv calm, cooperative. Respiratory: Airway is patent. Respiratory: Reports shortness of breath at rest. Historical: - Allergies: 17:39 No Known Allergies; hb - Home Meds: 17:39 metoprolol tartrate 25 mg Oral tab 1 tab 2 times per day [Active]; losartan 50 mg oral hb tab 1 tab once daily [Active]; - PMHx: 17:39 Hypertension; hb 17:39 NonHodgkin's Lymphoma; hb - PSHx: 17:39 Hernia repair; Biopsy (Left groin); hb - Immunization history:: Adult Immunizations up to date. - Social history:: Smoking status: Patient uses tobacco products, smokes one pack cigarettes per day. - Ebola Screening: : No symptoms or risks identified at this time. - Family history:: not pertinent. Screenin:50 Abuse screen: Denies threats or abuse. Denies injuries from another. Nutritional ca1 screening: No deficits noted. Tuberculosis screening: No symptoms or risk factors identified. Fall Risk Assessment: 17:50 General: Appears in no apparent distress. comfortable, Behavior is calm, cooperative, ca1 appropriate for age. Pain: Denies pain. Neuro: Level of Consciousness is awake, alert, obeys commands, Oriented to person, place, time, situation. Cardiovascular: Heart tones S1 S2 present Capillary refill < 3 seconds Patient's skin is warm and dry. Pulses are all present. Rhythm is sinus rhythm. Respiratory: Reports shortness of breath on exertion cough that is productive, since 2 weeks Airway is patent Respiratory effort is even, unlabored, Respiratory pattern is regular, symmetrical, Breath sounds are clear bilaterally. GI: Abdomen is flat, non-distended, Bowel sounds present X 4 quads. Abd is soft and non tender X 4 quads. : No deficits noted. No signs and/or symptoms were reported regarding the genitourinary system. EENT: Reports nasal congestion. Derm: Skin is intact, is healthy with good turgor, Skin is pink, warm \T\ dry. normal. Musculoskeletal: Circulation, motion, and sensation intact. Capillary refill < 3 seconds. 18:34 Reassessment: Patient appears in no apparent distress at this time. Patient and/or ca1 family updated on plan of care and expected duration. Pain level reassessed. Patient is alert, oriented x 3, equal unlabored respirations, skin warm/dry/pink. 19:40 Reassessment: Patient appears in no apparent distress at this time. Patient and/or ca1 family updated on plan of care and expected duration. Pain level reassessed. Patient is alert, oriented x 3, equal unlabored respirations, skin warm/dry/pink. 20:10 Reassessment: Patient appears in no apparent distress at this time. Patient is alert, ca1 oriented x 3, equal unlabored respirations, skin warm/dry/pink. Patient states feeling better. Vital Signs: 17:39 BP 171 / 94; Pulse 63; Resp 18; Temp 97.9; Pulse Ox 96% on R/A; Weight 86.18 kg; Height hb 5 ft. 9 in. (175.26 cm); Pain 3/10; 18:34 BP 166 / 114; Pulse 67; Resp 18 S; Pulse Ox 100% on Nebulizer Mask; ca1 19:15 BP 146 / 83; Pulse 74; Resp 18 S; Pulse Ox 100% on Nebulizer Mask; ca1 19:42 BP 144 / 78; Pulse 80; Resp 20 S; Temp 97.5(O); Pulse Ox 97% on R/A; ca1 20:22 BP 138 / 76; Pulse 81; Resp 19; Temp 98; Pulse Ox 97% on R/A; rv 17:39 Body Mass Index 28.06 (86.18 kg, 175.26 cm) hb ED Course: 17:23 Patient arrived in ED. mr 17:23 Nimesh Bowman MD is Private Physician. mr 17:39 Arm band placed on. hb 17:46 Nini Crystal, JODY is Primary Nurse. ca1 17:48 Polo Vaughan MD is Attending Physician. gabby 17:50 Patient has correct armband on for positive identification. Placed in gown. Bed in low ca1 position. Call light in reach. Side rails up X 1. drafter (cad) electrical on. Pulse ox on. NIBP on. Warm blanket given. 18:00 No provider procedures requiring assistance completed. Initial lab(s) drawn, First set ca1 of blood cultures drawn by me, Flu and/or RSV swab sent to lab. Inserted saline lock: 20 gauge in right antecubital area, using aseptic technique. Blood collected. 18:05 XRAY Chest (1 view) In Process Unspecified. EDMS 18:21 Triage completed. iw 18:39 Blood Culture Adult (2) Sent. lt1 19:41 Nimesh Bowman MD is Referral Physician. gabby 19:41 Too Burgess MD is Referral Physician. gabby 20:21 IV discontinued, intact, bleeding controlled, No redness/swelling at site. Pressure rv dressing applied. Administered Medications: 18:00 Drug: NS 0.9% 1000 ml Route: IV; Rate: 1 bolus; Site: right antecubital; ca1 19:00 Follow up: Urine output 200 ml; Response: No adverse reaction; IV Status: Completed ca1 infusion 18:13 Drug: SOLU-Medrol 125 mg Route: IVP; Site: right antecubital; ca1 20:20 Follow up: Response: Marked relief of symptoms rv 18:13 Drug: Albuterol - atroVENT (3:1) (2.5 mg - 0.5 mg) 3 ml Route: Nebulizer; ca1 20:20 Follow up: Response: Marked relief of symptoms rv 18:45 Drug: Rocephin 2 grams Route: IV; Rate: per protocol; Site: right antecubital; rv 20:19 Follow up: IV Status: Completed infusion rv 18:55 Drug: predniSONE 60 mg Route: PO; ca1 20:19 Follow up: Response: No adverse reaction rv 18:58 Drug: Zithromax 500 mg Route: IVPB; Infused Over: 1 hrs; Site: right antecubital; rv 20:19 Follow up: IV Status: Completed infusion; IV Intake: 250ml rv 19:00 Drug: Albuterol 5 mg Route: Inhalation; ca1 20:19 Follow up: Response: Marked relief of symptoms rv 19:54 Drug: Albuterol 5 mg Route: Inhalation; rv 20:19 Follow up: Response: Marked relief of symptoms rv Intake: 20:19 IV: 250ml; Total: 250ml. rv Output: 19:00 Urine: 200ml; Total: 200ml. ca1 Outcome: 19:41 Discharge ordered by . gabby 20:20 Discharged to home ambulatory. rv 20:20 Condition: improved 20:20 Discharge instructions given to patient, family, Instructed on discharge instructions, follow up and referral plans. medication usage, Demonstrated understanding of instructions, follow-up care, medications, Prescriptions given X 4. 20:22 Patient left the ED. rv Signatures: Dispatcher [employer] EDPolo Muñoz MD MD cha Rivera, Roma Rayna Israel RN RN iw Baxter, Heather, RN RN hb Vicente, Ronaldo, RN RN rv Acob, Cheryl, RN RN ca1 Tran, [facility]
--- NOTE | 2018-08-30 07:20 | EKG ---
Test Date: 2018-08-29 Test Time: 18:19:57 Parking Lot Signaler: ROHIT MEASUREMENT RESULTS: Intervals: Rate: 58 IL: 174 QRSD: 110 QT: 464 QTc: 455 [place]: P: 59 IL: 174 QRS: 56 T: 159 INTERPRETIVE STATEMENTS: Sinus bradycardia Nonspecific ST and T wave abnormality Abnormal ECG Compared to ECG 03/14/2018 09:58:06 Sinus rhythm no longer present Right-axis deviation no longer present T-wave abnormality no longer present Prolonged QT interval no longer present ST (T wave) deviation still present Electronically Signed On 08-30-18 07:18:30 CDT by Juan Hoffman
== END 2018-08-29 20:22 | disposition home or self-care (01) ==
LOC: ER 17:21
DX: J44.1 Chronic obstructive pulmonary disease with (acute) exacerbation (principal); I10 Essential (primary) hypertension; Z72.0 Tobacco use; Z71.6 Tobacco abuse counseling; Z85.72 Personal history of non-Hodgkin lymphomas
CPT/HCPCS: 96365; 96361; 93005; 87040 ×2; 85025; 80048; 36415; 83735; 85610; 80076; 83605; 84484; 84145; 83880; 87804 ×2; 71045; 94640; 96375; 99285; J0456; J0696; J7030; J2930

== ENCOUNTER 2019-04-06 13:05 | Inpatient (IN) | payer OTHER ==
--- OUTSIDE RECORDS SUMMARY | 2019-04-06 13:06 | XMS REPORT ---
:1945 [facility] [address] [place] [address] [address] Care Team Providers Name Role Phone CLINTON ACUNA Unavailable Unavailable Problems This patient has no known problems. Allergies, Adverse Reactions, Alerts This patient has no known allergies or adverse reactions. Medications This patient has no known medications. Results Test Description Test Time Test Comments Text Results Atomic Results Result Comments TISSUE EXAM 2016-08-31 15:59:00 Surgical Pathology Report Case: [id number] Authorizing Provider: Clinton Acuna MD Collected: 08/30/2016 0909 Ordering Location: [facility] Endoscopy Received: 08/30/2016 1532 Services [...] NO HIGH-GRADE DYSPLASIA AND NO MALIGNANCY IDENTIFIED [id number] x 2Rectal massA. Sigmoid colon polypB. Rectal [...]
[2019-04-06 14:38] LABS: Absolute Lymphocytes (CBC) 1.9 K/uL (0.7-4.9); Basophils % 1.1 % (0-1.3); Hematocrit 44.3 % (39.6-49.0); Lymphocytes % 19.1 % (15.3-44.8); MPV 10.1 fL (7.6-11.3); RBC Red Blood Cell Count 4.78 M/uL (4.33-5.43)
[2019-04-06 14:39] LABS: Protime INR 1.25
[2019-04-06 14:56] LABS: Albumin 3.4 g/dL (3.4-5.0); Bilirubin Direct 0.3 mg/dL (0-0.2); Bilirubin Total 0.7 mg/dL (0.2-1.0); Magnesium 2.3 mg/dL (1.8-2.4); Potassium 3.9 mmol/L (3.5-5.1); Troponin (Emerg Dept Use Only) 0.02 ng/mL (0.0-0.045)
--- NOTE | 2019-04-06 15:42 | ER ---
Nurse's Notes [facility] Name: Abraham Stark Age: 74 yrs Sex: Male : 1945 Arrival Date: 04/06/2019 Time: 13:07 Bed 30 Private MD: Nimesh Bowman E Diagnosis: Acute combined systolic (congestive) and diastolic (congestive) heart failure;Chronic obstructive pulmonary disease with (acute) exacerbation;Atrial fibrillation and flutter Presentation: 04/06 14:10 Presenting complaint: Patient states: C/O shortness of breath going on for a couple of weeks now, Pt states using nebulizers but is not helping. Pt with Hx of COPD, smokes 1/2 PPD, denies using home O2. Transition of care: patient was not received from another setting of care. Onset of symptoms was April 06, 2019. Risk Assessment: Do you want to hurt yourself or someone else? Patient reports no desire to harm self or others. Initial Sepsis Screen: Does the patient meet any 2 criteria? HR > 90 bpm. Does the patient have a suspected source of infection? No. Patient's initial sepsis screen is negative. Care prior to arrival: None. 14:10 Method Of Arrival: Ambulatory 14:10 Acuity: KIERSTEN 3 Triage Assessment: 14:16 Respiratory: Onset: The symptoms/episode began/occurred c=couple of weeks, the patient wh has mild shortness of breath. Historical: - Allergies: 14:14 No Known Allergies; - Home Meds: 14:14 losartan 50 mg Oral tab 1 tab once daily [Active]; metoprolol tartrate 25 mg Oral tab 1 wh tab 2 times per day [Active]; - PMHx: 14:14 Hypertension; NonHodgkin's Lymphoma; Rheumatic Fever; Aneurysm; COPD; - PSHx: 14:14 Hernia repair; Aneurysm repair; - Immunization history:: Adult Immunizations up to date. - Coronavirus screen:: The patient has NOT traveled to [place], [place], or [place] in the past 14 days. - Social history:: Smoking status: Patient reports the use of cigarette tobacco products, smokes one-half pack cigarettes per day. - Ebola Screening: : Patient negative for fever greater than or equal to 101.5 degrees Fahrenheit, and additional compatible Ebola Virus Disease symptoms Patient denies exposure to infectious person. Screenin:15 Abuse screen: Denies threats or abuse. Denies injuries from another. Nutritional wh screening: No deficits noted. Tuberculosis screening: No symptoms or risk factors identified. Fall Risk None identified. Assessment: 14:15 General: Appears in no apparent distress. Behavior is calm, cooperative, appropriate wh for age. Pain: Denies pain. Neuro: Level of Consciousness is awake, alert, obeys commands, Oriented to person, place, time, situation, Appropriate for age. Cardiovascular: Heart tones S1 S2 Rhythm is regular. Respiratory: Airway is patent Respiratory effort is even, unlabored, Respiratory pattern is regular, symmetrical, Breath sounds are diminished bilaterally. Respiratory: Reports shortness of breath. GI: Abdomen is flat, non-distended. : No signs and/or symptoms were reported regarding the genitourinary system. EENT: No signs and/or symptoms were reported regarding the EENT system. Derm: Skin is intact, is healthy with good turgor, Skin is pink, warm \T\ dry. normal. Musculoskeletal: Circulation, motion, and sensation intact. 15:55 Reassessment: Patient appears in no apparent distress at this time. No changes from previously documented assessment. Patient and/or family updated on plan of care and expected duration. Pain level reassessed. Patient is alert, oriented x 3, equal unlabored respirations, skin warm/dry/pink. 17:15 Reassessment: Patient appears in no apparent distress at this time. No changes from previously documented assessment. Patient and/or family updated on plan of care and expected duration. Pain level reassessed. Patient is alert, oriented x 3, equal unlabored respirations, skin warm/dry/pink. hospitalist at bedside explaining POC need for admit. Vital Signs: 14:14 BP 179 / 96; Pulse 90; Resp 18; Temp 97.6; Pulse Ox 95% ; Weight 90.72 kg; Height 5 ft. 10 in. (177.80 cm); 16:00 BP 181 / 103; Pulse 80; Resp 18; Pulse Ox 95% on 2 lpm NC; wh 17:15 BP 173 / 108; Pulse 57; Resp 18; Pulse Ox 98% on 2 lpm NC; 14:14 Body Mass Index 28.70 (90.72 kg, 177.80 cm) ED Course: 13:07 Patient arrived in ED. rg4 13:08 Nimesh Bowman MD is Private Physician. rg4 14:10 Estrellita Rascon is Primary Nurse. 14:12 Triage completed. 14:12 Paxton Bhatt PA is PHCP. jr8 14:13 Polo Vaughan MD is Attending Physician. jr8 14:16 Arm band placed on right wrist. wh 14:16 Patient has correct armband on for positive identification. Bed in low position. Call light in reach. Side rails up X 1. Pulse ox on. NIBP on. 14:30 Inserted saline lock: 20 gauge in right forearm, using aseptic technique. Blood wh collected. 15:41 Bereket Chambers MD is Hospitalizing Provider. jr8 15:48 EKG done, by network technician. reviewed by Paxton LOUIS. at1 18:04 No provider procedures requiring assistance completed. Patient admitted, IV remains in place. Administered Medications: 15:50 Drug: Lasix 60 mg Route: IVP; Site: right antecubital; 18:08 Follow up: Response: No adverse reaction 15:51 Drug: Lovenox 1 mg/kg Route: Sub-Q; Site: right lower abdomen; 17:27 Follow up: Response: No adverse reaction 18:08 Follow up: Response: No adverse reaction Outcome: 15:41 Decision to Hospitalize by Provider. jr8 18:00 Admitted to [facility] accompanied by tech, via wheelchair, room 404, with oxygen, with chart, Report called to Alberto Crystal RN 18:00 Condition: stable 18:00 Instructed on the need for admit. 18:08 Patient left the ED. Signatures: Paxton Bhatt PA PA jr8 Yuridia Cardona, senior unix administrator EKG TatEveline Henry rg4 Estrellita Rascon
--- NOTE | 2019-04-06 15:42 | EDPHYS ---
Physician Documentation [facility] Name: Abraham Stark Age: 74 yrs Sex: Male : 1945 Arrival Date: 04/06/2019 Time: 13:07 Bed 30 Private MD: Nimesh Bowman E ED Physician Polo Vaughan HPI: 04/06 14:48 This 74 yrs old Male presents to ER via Ambulatory with complaints of jr8 Breathing Difficulty. 14:48 The patient has shortness of breath at rest, with light activity. Onset: The jr8 symptoms/episode began/occurred gradually, 1 month(s) ago, and became worse and became persistent. Duration: The symptoms are continuous. The patient's shortness of breath is aggravated by light activity, walking. Associated signs and symptoms: The patient has no apparent associated signs or symptoms. Severity of symptoms: At their worst the symptoms were moderate in the emergency department the symptoms are unchanged. The patient has not experienced similar symptoms in the past. The patient has not recently seen a physician. History of COPD. Still smokes 1/2 pack per day. Stated that over the past month has had worsening of shortness of breath with exertion and at rest. Starting to not be relieved with nebulizer treatments . Historical: - Allergies: 14:14 No Known Allergies; - Home Meds: 14:14 losartan 50 mg Oral tab 1 tab once daily [Active]; metoprolol tartrate 25 mg Oral tab 1 wh tab 2 times per day [Active]; - PMHx: 14:14 Hypertension; NonHodgkin's Lymphoma; Rheumatic Fever; Aneurysm; COPD; - PSHx: 14:14 Hernia repair; Aneurysm repair; - Immunization history:: Adult Immunizations up to date. - Coronavirus screen:: The patient has NOT traveled to [place], [place], or [place] in the past 14 days. - Social history:: Smoking status: Patient reports the use of cigarette tobacco products, smokes one-half pack cigarettes per day. - Ebola Screening: : Patient negative for fever greater than or equal to 101.5 degrees Fahrenheit, and additional compatible Ebola Virus Disease symptoms Patient denies exposure to infectious person. ROS: 14:48 Eyes: Negative for injury, pain, redness, and discharge, ENT: Negative for injury, jr8 pain, and discharge, Neck: Negative for injury, pain, and swelling, Abdomen/GI: Negative for abdominal pain, nausea, vomiting, diarrhea, and constipation, Back: Negative for injury and pain, MS/Extremity: Negative for injury and deformity, Skin: Negative for injury, rash, and discoloration, Neuro: Negative for headache, weakness, numbness, tingling, and seizure. 14:48 Cardiovascular: Positive for edema. 14:48 Respiratory: Positive for dyspnea on exertion, shortness of breath. Exam: 14:48 Eyes: Pupils equal round and reactive to light, extra-ocular motions intact. Lids and jr8 lashes normal. Conjunctiva and sclera are non-icteric and not injected. Cornea within normal limits. Periorbital areas with no swelling, redness, or edema. ENT: Nares patent. No nasal discharge, no septal abnormalities noted. Tympanic membranes are normal and external auditory canals are clear. Oropharynx with no redness, swelling, or masses, exudates, or evidence of obstruction, uvula midline. Mucous membranes moist. Neck: Trachea midline, no thyromegaly or masses palpated, and no cervical lymphadenopathy. Supple, full range of motion without nuchal rigidity, or vertebral point tenderness. No Meningismus. Abdomen/GI: Soft, non-tender, with normal bowel sounds. No distension or tympany. No guarding or rebound. No evidence of tenderness throughout. Back: No spinal tenderness. No costovertebral tenderness. Full range of motion. Skin: Warm, dry with normal turgor. Normal color with no rashes, no lesions, and no evidence of cellulitis. MS/ Extremity: Pulses equal, no cyanosis. Neurovascular intact. Full, normal range of motion. Neuro: Awake and alert, GCS 15, oriented to person, place, time, and situation. Cranial nerves II-XII grossly intact. Motor strength 5/5 in all extremities. Sensory grossly intact. Cerebellar exam normal. Normal gait. 14:48 Cardiovascular: Rate: normal, Rhythm: irregularly irregular, Pulses: Pulses are 2+ in right radial artery and left radial artery. Heart sounds: murmur, systolic, grade 3 over 6, heard in the aortic area, Edema: 2+ edema to level of left midcalf, left ankle, left foot, right midcalf, right ankle and right foot, JVD: is not appreciated. 15:38 Respiratory: the patient does not display signs of respiratory distress, Respirations: jr8 tachypnea, Breath sounds: rales, that are mild, are located in both bases. Vital Signs: 14:14 BP 179 / 96; Pulse 90; Resp 18; Temp 97.6; Pulse Ox 95% ; Weight 90.72 kg; Height 5 ft. wh 10 in. (177.80 cm); 16:00 BP 181 / 103; Pulse 80; Resp 18; Pulse Ox 95% on 2 lpm NC; wh 17:15 BP 173 / 108; Pulse 57; Resp 18; Pulse Ox 98% on 2 lpm NC; wh 14:14 Body Mass Index 28.70 (90.72 kg, 177.80 cm) MDM: 14:13 Patient medically screened. jr8 15:37 Differential diagnosis: CHF exacerbation, Chronic Obstructive Pulmonary Disease jr8 Myocardial Infarction pneumonia, pulmonary edema, Pulmonary Embolism Unstable Angina. Data reviewed: vital signs, nurses notes, lab test result(s), EKG, radiologic studies, plain films. Data interpreted: Pulse oximetry: on room air is 94 %. Interpretation: acceptable. Counseling: I had a detailed discussion with the patient and/or guardian regarding: the historical points, exam findings, and any diagnostic results supporting the discharge/admit diagnosis, lab results, radiology results, the need for further work-up and treatment in the hospital. 15:39 ED course: Patient with atrial fib. Unknown if he is in that rhythm all the time. Not jr8 on anticoagulation. BNP elevated with increased shortness of breath, orthopnea, PND, and [place]. Xray and exam suggestive of heart failure. Will admit for further evaluation . 04/06 14:16 Order name: Basic Metabolic Panel 04/06 14:16 Order name: CBC with Diff 04/06 14:16 Order name: LFT's 04/06 14:16 Order name: Magnesium 04/06 14:16 Order name: NT PRO-BNP 04/06 14:16 Order name: PT-INR 04/06 14:16 Order name: Troponin (emerg Dept Use Only) [facility] 04/06 14:43 Order name: CBC with Automated Diff; Complete Time: 14:47 EDMS 04/06 14:43 Order name: Protime (+INR); Complete Time: 14:47 EDMS 04/06 14:58 Order name: Basic Metabolic Panel; Complete Time: 15:08 EDMS 04/06 14:59 Order name: Liver (Hepatic) Function; Complete Time: 15:08 EDMS 04/06 15:00 Order name: Troponin (Emerg Dept Use Only); Complete Time: 15:08 EDMS 04/06 15:00 Order name: NT PRO-BNP; Complete Time: 15:08 EDMS 04/06 15:01 Order name: Magnesium; Complete Time: 15:08 EDMS 04/06 14:16 Order name: XRAY Chest (1 view) 04/06 14:16 Order name: EKG; Complete Time: 14:21 8 04/06 14:16 Order name: Cardiac monitoring; Complete Time: 14:28 8 04/06 14:16 Order name: EKG - Nurse/Tech; Complete Time: 15:28 8 04/06 14:16 Order name: IV Saline Lock; Complete Time: 14:28 [facility] 04/06 14:16 Order name: Labs collected and sent; Complete Time: 14:28 [facility] 04/06 14:16 Order name: O2 Per Protocol; Complete Time: 14:28 8 04/06 14:16 Order name: O2 Sat Monitoring; Complete Time: 14:28 [facility] 04/06 15:37 Order name: Oxygen; Complete Time: 15:51 8 04/06 15:54 Order name: RAD; Complete Time: 15:55 EDMS Administered Medications: 15:50 Drug: Lasix 60 mg Route: IVP; Site: right antecubital; 18:08 Follow up: Response: No adverse reaction 15:51 Drug: Lovenox 1 mg/kg Route: Sub-Q; Site: right lower abdomen; wh 17:27 Follow up: Response: No adverse reaction 18:08 Follow up: Response: No adverse reaction Disposition: 04/07 07:14 Co-signature as Attending Physician, Polo Vaughan MD I agree with the assessment and gabby plan of care. Disposition: 04/06/19 15:41 Hospitalization ordered by Bereket Chambers for Inpatient Admission. Preliminary diagnosis are Acute combined systolic (congestive) and diastolic (congestive) heart failure, Chronic obstructive pulmonary disease with (acute) exacerbation, Atrial fibrillation and flutter. - Bed requested for Telemetry/MedSurg (Inpatient). - Status is Inpatient Admission. - Condition is Stable. - Problem is new. - Symptoms have improved. Signatures: Dispatcher [employer] EDMS Nina Johnson Corey, MD MD cha Roszak, Josh, PA PA jr8 Estrellita Rascon Corrections: (The following items were deleted from the chart) 04/06 15:39 14:48 Eyes: Pupils equal round and reactive to light, extra-ocular motions intact. Lids jr8 and lashes normal. Conjunctiva and sclera are non-icteric and not injected. Cornea within normal limits. Periorbital areas with no swelling, redness, or edema. ENT: Nares patent. No nasal discharge, no septal abnormalities noted. Tympanic membranes are normal and external auditory canals are clear. Oropharynx with no redness, swelling, or masses, exudates, or evidence of obstruction, uvula midline. Mucous membranes moist. Neck: Trachea midline, no thyromegaly or masses palpated, and no cervical lymphadenopathy. Supple, full range of motion without nuchal rigidity, or vertebral point tenderness. No Meningismus. Abdomen/GI: Soft, non-tender, with normal bowel sounds. No distension or tympany. No guarding or rebound. No evidence of tenderness throughout. Back: No spinal tenderness. No costovertebral tenderness. Full range of motion. Skin: Warm, dry with normal turgor. Normal color with no rashes, no lesions, and no evidence of cellulitis. MS/ Extremity: Pulses equal, no cyanosis. Neurovascular intact. Full, normal range of motion. Neuro: Awake and alert, GCS 15, oriented to person, place, time, and situation. Cranial nerves II-XII grossly intact. Motor strength 5/5 in all extremities. Sensory grossly intact. Cerebellar exam normal. Normal gait. jr8 15:39 14:48 Cardiovascular: Rate: normal, Rhythm: regular, Pulses: Pulses are 2+ in right jr8 radial artery and left radial artery. Heart sounds: murmur, systolic, grade 3 over 6, heard in the aortic area, Edema: 2+ edema to level of left midcalf, left ankle, left foot, right midcalf, right ankle and right foot, JVD: is not appreciated, jr8 17:03 15:41 Hospitalization Ordered by Bereket Chambers MD for Inpatient Admission. Preliminary bd diagnosis is Acute combined systolic (congestive) and diastolic (congestive) heart failure; Chronic obstructive pulmonary disease with (acute) exacerbation; Atrial fibrillation and flutter. Bed requested for Telemetry/MedSurg (Inpatient). Status is Inpatient Admission. Condition is Stable. Problem is new. Symptoms have improved. jr8 18:08 17:03 04/06/2019 15:41 Hospitalization Ordered by Bereket Chambers MD for Inpatient Admission. Preliminary diagnosis is Acute combined systolic (congestive) and diastolic (congestive) heart failure; Chronic obstructive pulmonary disease with (acute) exacerbation; Atrial fibrillation and flutter. Bed requested for Telemetry/MedSurg (Inpatient). Status is Inpatient Admission. Condition is Stable. Problem is new. Symptoms have improved. bd
--- NOTE | 2019-04-06 15:42 | RAD REPORT ---
EXAM DESCRIPTION: RAD - Chest Single View - 04/06/2019 3:09 pm CLINICAL HISTORY: DYSPNEA COMPARISON: Chest Single View dated 08/29/2018 TECHNIQUE: AP portable chest image was obtained 04/06/2019 3:09 pm . FINDINGS: Underinflated compared to the prior study. Bilateral pleural effusions are present worse o n the right. Cardiac silhouette has enlarged slightly from comparison. Central vasculature is increas ed and there is overall increase in interstitial opacification. No pneumothorax. No acute bony abnorm ality seen. No acute aortic findings suspected. IMPRESSION: Mild to moderate CHF/ volume overload pattern.
[2019-04-06] MEDS ORDERED: FUROSEMIDE 20 MG/ 2ML VIAL ONE (15:44)
[2019-04-06] MEDS ORDERED: FUROSEMIDE 40 MG/4 ML VIAL ONE (15:45)
[2019-04-06] MEDS ORDERED: ENOXAPARIN 100 MG/ML SYR SQ ONE (15:55)
--- NOTE | 2019-04-06 17:42 | EKG ---
Test Date: 2019-04-06 Test Time: 15:27:52 White Work Cleaner: KRYS MEASUREMENT RESULTS: Intervals: Rate: 94 AR: QRSD: 114 QT: 398 QTc: 497 [place]: P: AR: QRS: 72 T: -90 INTERPRETIVE STATEMENTS: Atrial fibrillation with premature ventricular or aberrantly conducted complexes Nonspecific ST abnormality, probably digitalis effect Prolonged QT Abnormal ECG Compared to ECG 08/29/2018 18:19:57 Ventricular premature complex(es) now present Prolonged QT interval now present Sinus bradycardia no longer present Electronically Signed On 04-06-19 17:41:57 TEXTILE ENGINEER by Louis Amador
[2019-04-06] MEDS ORDERED: IPRATROPIUM BROM 0.5MG/2.5ML NEB PRN ×2 (18:01)
[2019-04-06] MEDS ORDERED: ALBUTEROL 2.5 MG/3 ML NEB SOL NEB PRN (18:01)
[2019-04-06] MEDS ORDERED: HYDRALAZINE HCL 20 MG/ML VIAL IV PRN (18:01)
[2019-04-06] MEDS ORDERED: ONDANSETRON 4 MG/2 ML VIAL IV PRN (18:01)
[2019-04-06] MEDS ORDERED: ACETAMINOPHEN 500 MG TAB PO PRN (18:01)
[2019-04-06] MEDS ORDERED: ENOXAPARIN 100 MG/ML SYR SQ SCH (19:00)
[2019-04-06] MEDS ORDERED: FUROSEMIDE 40 MG/4 ML VIAL IV SCH (19:00)
[2019-04-06] MEDS ORDERED: ALBUTEROL 2.5 MG/3 ML NEB SOL NEB SCH (20:00)
[2019-04-06] MEDS: METOPROLOL TAR 50 MG TAB PO SCH (20:48)
[2019-04-06] MEDS: ENOXAPARIN 100 MG/ML SYR SQ SCH (20:50)
[2019-04-06] MEDS ORDERED: PNEUMOCOCCAL VACCINE 0.5 ML IMVAC ONE (21:00)
[2019-04-06] MEDS ORDERED: POTASSIUM 25 MEQ EFFERV TAB PO ONE (21:00)
--- NOTE | 2019-04-06 23:52 | CON ---
Chief Complaint: Dyspnea. History Of Present Illness: Mr. Stark has been dyspnea for 3 or 4 weeks, there seems to be orthopne a. He does not notice an irregular heartbeat, but he is in atrial fibrillation now. He was not in a trial fibrillation in the past. He is not familiar with atrial fibrillation and does not think he mckay s been diagnosed with it. He has never had a heart attack or stroke. He was a heavy cigarette smoke r, still smokes 2 to 3 cigarettes a day. He has underlying obstructive lung disease. He does not re port allergies. He has had non-Hodgkin lymphoma, rheumatic fever, abdominal aortic aneurysm, high bl ood pressure, COPD. He has had a hernia repair and abdominal aortic aneurysm repair. He is unable t o tell us what medicines he takes at home. We did get that he takes losartan and metoprolol. There are probably some other medicines that he is not able to remember. Physical Examination: Measurements: 5 feet 10 inches, 194 pounds. HEENT: Normal. Lungs: Clear. There are some wheezes on the right. Abdomen: Soft. Extremities: No cyanosis or clubbing. Mild edema. Distal pulses diminished, but palpable. Imaging Studies: Chest x-ray looks like a mild to moderate CHF, volume overload pattern. Laboratory Data: Reveals normal troponins. B-natriuretic peptide is elevated. N-terminal proBNP is 4248. Impression: The patient has congestive heart failure. I would imagine listening to him and looking at his EKG that it is mostly diastolic. An echocardiogram will help us determine which sort of conge stive heart failure he has and the best way to treat him. The diuretics are certainly part of the tr eatment and so far it seems to have helped him. Regarding his atrial fibrillation the rate seems to be well controlled. I would not want to establish sinus rhythm unless he has been anticoagulated for at least 3 weeks. Still whenever we want to stop Lovenox, we can switch to one of the direct oral a nticoagulant such as Eliquis. JANEEN/MODL Voice ID: [id number] Report ID: [id number]
--- NOTE | 2019-04-07 03:35 | HP ---
Date of Admission: 04/06/2019 Chief Complaint: Shortness of breath. Code Status: Full. History Of Present Illness: Patient is a 74-year-old male with past medical history of hypertension; atrial fibrillation, not on any anticoagulation; heavy smoker; heavy drinker; history of rheumatic f ever; COPD; non-Hodgkin lymphoma; skin cancer, comes in with difficulty breathing. Patient states hi s onset was very sudden. Patient does report some peripheral edema. Denies any cough, fever, chills . No nausea, vomiting. No chest pain. Patient's symptoms are constant, moderate, progressively wor sening. Patient's workup revealed a BNP of 4000, white blood cell count was normal. Chest x-ray prasanna wed moderate CHF. Patient was given Lasix and full-dose Lovenox, was referred for admission. When s een in the ER, he was awake, alert, oriented x3, in some mild respiratory distress on supplemental ox ygen. Past Medical History: Hypertension, COPD, rheumatic fever, aortic aneurysm status post repair, non-H odgkin lymphoma, skin cancer. Surgical History: Aortic aneurysm repair, hernia repair, and skin cancer removal from the left shoul onel. Allergies: NO KNOWN DRUG ALLERGIES. Medications: List reviewed. Family History: Mother has diabetes. Social History: Patient smokes about half a pack per day. Has been smoking for about 60 years. Dri nks alcohol every weekend or so. No illicit drug use. Review of Systems: Ten-point system reviewed, negative except as per HPI. Physical Examination: VITAL SIGNS: Blood pressure 179/96, pulse 90, respirations 18, temperature 97.6, O2 of 95%. BMI 28. GENERAL: Awake, alert, oriented x3. Elderly male, who appears older than stated age, ill-appearing, in some mild respiratory distress. HEENT: Normocephalic, atraumatic. PERRLA. EOMI. Moist mucous membranes. Poor dentition. Orophar ynx is clear. Conjunctivae anicteric. Neck: Supple. Trachea midline. CV: S1, S2, irregularly irregular. Peripheral pulses present. RESPIRATORY: Diminished breath sounds. Crackles heard throughout. Patient is slightly tachypneic. No use of accessory muscles. GASTROINTESTINAL: Abdomen is soft, nontender. Patient does have some distention. Positive bowel so unds. EXTREMITIES: No clubbing, cyanosis. Patient has 2+ edema bilateral lower extremities. SKIN: No rashes. Normal skin turgor. PSYCH: Mood is okay. Affect is full. Insight and judgment are good. NEURO: Cranial nerves 2 through 12 intact grossly. No focal neurological deficits. Speech is jordi l. Laboratory Data: Sodium 140, potassium 3.9, chloride 108, CO2 of 28, BUN 19, creatinine 1.27, glucos e 101, calcium 9.3, magnesium 2.3. Troponin 0.02. BNP 4248. WBC 9.7, H and H 15.1 and 44.3, platel ets 113, neutrophils 70%. INR 1.25. Imaging Studies: Chest x-ray shows [id number] CHF, volume overload pattern. Assessment: A 74-year-old male with: 1.New-onset congestive heart failure. We will start him on diuretics. We will provide some potassi um supplementation. We will obtain an echocardiogram. Consult Cardiology. Monitor I's and O's stri ctly, daily weights. 2.Uncontrolled hypertension. We will continue home medications hydralazine p.r.n. systolic greater than 160. 3.Chronic obstructive pulmonary disease. Continue with albuterol and ipratropium as needed. 4.Atrial fibrillation, chronic, permanent. Patient is not on any blood thinners. We will continue Lovenox 1 mg/kg q.12 hours. Patient's CHADS-VASc score is elevated. Should be a candidate for long- term anticoagulation. Did discuss long-term anticoagulation. Patient does not wish to take any of t he Xarelto or Eliquis type medications, does seem to be okay with aspirin daily. We will need furthe r discussion. 5.Nicotine dependence. Cigarette smoking. Counseled. 6.Alcohol abuse. Counseled. 7.History of rheumatic fever. 8.History of aortic aneurysm, status post repair. 9.History of non-Hodgkin lymphoma. 10.History of skin cancer, stable. 11.Deep venous thrombosis prophylaxis, Lovenox. Plan: Admit patient to Med-Surg, place as inpatient. Length of stay greater than 2 midnights. JAYMIE Voice ID: [id number]
[2019-04-07 04:23] LABS: Absolute Lymphocytes (CBC) 1.6 K/uL (0.7-4.9); Basophils % 0.7 % (0-1.3); Hematocrit 43.3 % (39.6-49.0); Lymphocytes % 19.5 % (15.3-44.8); MPV 10.4 fL (7.6-11.3); RBC Red Blood Cell Count 4.66 M/uL (4.33-5.43)
[2019-04-07 04:36] LABS: Albumin 3.2 g/dL (3.4-5.0); Magnesium 2.1 mg/dL (1.8-2.4); Protein, Total 6.6 g/dL (6.4-8.2)
[2019-04-07 05:39] VITALS: BMI 27.7
[2019-04-07] MEDS: METOPROLOL TAR 50 MG TAB PO SCH (08:11)
[2019-04-07] MEDS: FUROSEMIDE 40 MG/4 ML VIAL IV SCH ×2 (08:11→16:34)
[2019-04-07] MEDS: ENOXAPARIN 100 MG/ML SYR SQ SCH (08:12)
[2019-04-07] MEDS ORDERED: LOSARTAN POTASSIUM 50 MG TABLET PO SCH (09:00)
[2019-04-07] MEDS ORDERED: lisinopriL 10 MG TAB PO SCH (09:00)
[2019-04-07] MEDS ORDERED: POTASSIUM CL SA 10 MEQ TAB PO SCH (09:00)
[2019-04-07] MEDS ORDERED: HOME MED 1 EA UNK (Fluticasone/Umeclidin/Vilanter [Trelegy Ellipta 100-62.5-25] 1 PUFF) IH SCH (09:00)
--- NOTE | 2019-04-07 10:20 | RAD REPORT ---
EXAM DESCRIPTION: Grahamt Pa And Lat (2 Views)04/07/2019 10:03 am CLINICAL HISTORY: Shortness of breath COMPARISON: May 05, 2019 FINDINGS: Bilateral pulmonary opacities have mostly resolved. The pleural effusions have decreased in size and are small. Heart remains enlarged IMPRESSION: Improvement in CHF
--- NOTE | 2019-04-07 12:02 | ECHO ---
HEIGHT: 5 ft 10 in WEIGHT: 193 lb 4.8 oz DATE OF STUDY: 04/07/[address]: Bereket Chambers MD 2-DIMENSIONAL: YES M.MODE: YES DOPPLER: YES COLOR FLOW: YES TDS: NO PORTABLE: NO DEFINITY: NO BUBBLE STUDY: NO DIAGNOSIS: CONGESTIVE HEART FAILURE CARDIAC HISTORY: CATHERIZATION: NO SURGERY: NO PROSTHETIC VALVE: NO PACEMAKER: NO MEASUREMENTS (cm) DIASTOLIC (NORMALS) SYSTOLIC (NORMALS) IVSd 1.1 (0.6-1.2) LA Diam 3.8 (1.9-4.0) LVEF 39% LVIDd 5.4 (3.5-5.7) LVIDs 4.4 (2.0-3.5) %FS 19% LVPWd 1.1 (0.6-1.2) Ao Diam 3.3 (2.0-3.7) 2 DIMENSIONAL ASSESSMENT: RIGHT ATRIUM: NORMAL LEFT ATRIUM: NORMAL RIGHT VENTRICLE: NORMAL LEFT VENTRICLE: NORMAL TRICUSPID VALVE: NORMAL MITRAL VALVE: NORMAL PULMONIC VALVE: NORMAL AORTIC VALVE: NORMAL PERICARDIAL EFFUSION: NONE AORTIC ROOT: NORMAL LEFT VENTRICULAR WALL MOTION: MODERATE GLOBAL HYPOKINESIS. DOPPLER/COLOR FLOW: MILD AORTIC AND MITRAL REGURGITATION. COMMENTS: DEPRESSED LEFT VENTRICULAR EJECTION FRACTION 39%. MILD AORTIC AND MITRAL REGURGITATION. TECHNOLOGIST: Nicole CRUZ
[2019-04-07 12:08] VITALS: O2SAT 96
--- NOTE | 2019-04-07 15:38 | P.DS ---
Admission Date: 04/06/19 Discharge Date: 04/07/19 Primary Care Provider: Dr. Bowman; Cardiology-Dr. Hoffman Disposition: ROUTINE DISCHARGE Discharge Condition: GOOD Reason for Admission: Shortness of breath Consultations: Cardiology-Dr. Amador Procedures: Follow up chest x-ray: COMPARISON: May 05, 2019 FINDINGS: Bilateral pulmonary opacities have mostly resolved. The pleural effusions have decreased in size and are small. Heart remains enlarged IMPRESSION: Improvement in CHF Echocardiogram: Ejection fraction 39% LEFT VENTRICULAR WALL MOTION: MODERATE GLOBAL HYPOKINESIS. DOPPLER/COLOR FLOW: MILD AORTIC AND MITRAL REGURGITATION. COMMENTS: DEPRESSED LEFT VENTRICULAR EJECTION FRACTION 39%. MILD AORTIC AND MITRAL REGURGITATION Medical problem list: Shortness of breath secondary to acute systolic congestive heart failure with ejection fraction of 39%, new Hypertension COPD Chronic atrial fibrillation Tobacco abuse Alcohol abuse History of non-Hodgkin's lymphoma History of aortic aneurysm repair Brief History of Present Illness: 74-year-old male with history of hypertension, atrial fibrillation not on chronic anti coalition therapy, tobacco abuse, COPD and non-Hodgkin's lymphoma. Patient presented with increasing shortness of breath. BNP elevated. Chest x-ray showed CHF. Patient was admitted for further evaluation and treatment. Hospital Course: Patient presented with shortness of breath. Patient found to have new acute systolic congestive heart failure. Patient was admitted for treatment. Patient received diuretic therapy. Echocardiogram shows ejection fraction 39%. His symptoms have improved. No significant edema noted to the lower extremity at discharge. At discharge he is without significant shortness of breath. Room-air saturations within normal range. At discharge patient will continue with a 1500 cc per day fluid restriction and low-salt diet. He is to monitor his weight daily. If his weight increases by more than 5 lb he is to contact his PCP or cardiology for further recommendation. At discharge he will continue with Lasix 40 mg 1 pill twice daily. Further adjustment in his medication can be done by his PCP or cardiology if his fluid intake and await improve. Patient will also continue with metoprolol XL 50 mg 1 pill twice daily and losartan 50 mg daily. Recommend follow up with cardiology in 1-2 weeks to follow up this hospitalization. Education on CHF will be provided. Patient with history of chronic atrial fibrillation. Patient previously not on chronic anti coagulation therapy. Case reviewed with cardiology. At discharge she will continue with rate control medication-metoprolol XL 50 mg 1 pill twice daily. New medication includes Eliquis 5 mg 1 pill twice daily. Education on Eliquis will be provided. Recommend follow up with cardiology in 1-2 weeks. Recommend to recheck CBC, BMP in 1-2 weeks. Patient with history of COPD. This has remained stable. At discharge he will continue with his medication of Trelegy 1 puff daily. At discharge will recommend to discontinue albuterol as this may increased his heart rate. Will private branch exchange service advisor to Xopenex 2 puffs 3 times a day as needed for shortness of breath. Recommend follow up with pulmonology as directed. Patient with tobacco and alcohol abuse. Cessation education will be provided. Patient with hypertension. At discharge he will continue with metoprolol XL 50 mg 1 pill twice daily and losartan 50 mg daily. Recommend to maintain blood pressures less 150/80. Further adjustment can be done by his PCP or cardiology. Vital Signs/Physical Exam: Temp Pulse Resp BP Pulse Ox 97.4 F 77 20 150/85 H 96 04/07/19 12:00 04/07/19 12:00 04/07/19 12:00 04/07/19 12:00 04/07/19 12:00 General: Alert, In no apparent distress, Oriented x3, Cooperative HEENT: Atraumatic Neck: Supple Respiratory: Clear to auscultation bilaterally, Normal air movement Cardiovascular: Irregular heart rate/rhythm (AFib rate controlled) Gastrointestinal: Normal bowel sounds, Soft and benign, Non-distended, No tenderness, No masses, No rebound, No guarding Musculoskeletal: No erythema, No tenderness, No warmth Integumentary: No tenderness/swelling, No erythema, No warmth, No cyanosis Neurological: Normal speech, Normal strength at 5/5 x4 extr, Normal tone, Normal affect Laboratory Data at Discharge: WBC 8.4 K/uL (4.3-10.9) 04/07/19 03:41 Hgb 14.5 g/dL (13.6-17.9) 04/07/19 03:41 Hct 43.3 % (39.6-49.0) 04/07/19 03:41 Plt Count 102 K/uL (152-406) L 04/07/19 03:41 PT 14.6 SECONDS (9.5-12.5) H 04/06/19 14:20 INR 1.25 04/06/19 14:20 Sodium 141 mmol/L (136-145) 04/07/19 03:41 Potassium 4.0 mmol/L (3.5-5.1) 04/07/19 03:41 BUN 18 mg/dL (7-18) 04/07/19 03:41 Creatinine 1.25 mg/dL (0.55-1.3) 04/07/19 03:41 Glucose 77 mg/dL (74-106) 04/07/19 03:41 Magnesium 2.1 mg/dL (1.8-2.4) 04/07/19 03:41 Total Bilirubin 1.0 mg/dL (0.2-1.0) 04/07/19 03:41 AST 21 U/L (15-37) 04/07/19 03:41 ALT 23 U/L (12-78) 04/07/19 03:41 Alkaline Phosphatase 91 U/L (45-117) 04/07/19 03:41 Home Medications: Metoprolol Succinate [Toprol Xl*] 50 mg PO BID 09/30/15 Albuterol Sulfate [Proair Hfa] 8.5 gm IH TID PRN 03/14/18 Fluticasone/Umeclidin/Vilanter [Trelegy Ellipta 100-62.5-25] 1 puff IH DAILY 12/14 Losartan Potassium [Cozaar] 1 tab PO DAILY 04/06/19 Apixaban [Eliquis] 5 mg PO BID #60 tablet 04/07/19 Furosemide [Lasix] 40 mg PO BIDL #60 tab 04/07/19 Levalbuterol Tartrate [Xopenex Hfa] 2 puff IH TID PRN #1 hfa.aer.ad 04/07/19 New Medications: Apixaban [Eliquis] 5 mg PO BID #60 tablet Furosemide [Lasix] 40 mg PO BIDL #60 tab Levalbuterol Tartrate [Xopenex Hfa] 2 puff IH TID PRN #1 hfa.aer.ad PRN Reason: Shortness Of Breath Patient Discharge Instructions: 1. Follow up with PCP in 1-2 weeks to follow up this hospitalization. 2. Patient presented with shortness of breath. Patient found to have new acute systolic congestive heart failure. Patient was admitted for treatment. Patient received diuretic therapy. Echocardiogram shows ejection fraction 39%. His symptoms have improved. No significant edema noted to the lower extremity at discharge. At discharge he is without significant shortness of breath. Room-air saturations within normal range. At discharge patient will continue with a 1500 cc per day fluid restriction and low -salt diet. He is to monitor his weight daily. If his weight increases by more than 5 lb he is to contact his PCP or cardiology for further recommendation. At discharge he will continue with Lasix 40 mg 1 pill twice daily. Further adjustment in his medication can be done by his PCP or cardiology if his fluid intake and await improve. Patient will also continue with metoprolol XL 50 mg 1 pill twice daily and losartan 50 mg daily. Recommend follow up with cardiology in 1-2 weeks to follow up this hospitalization. Education on CHF will be provided. 3. Patient with history of chronic atrial fibrillation. Patient previously not on chronic anti coagulation therapy. Case reviewed with cardiology. At discharge she will continue with rate control medication-metoprolol XL 50 mg 1 pill twice daily. New medication includes Eliquis 5 mg 1 pill twice daily. Education on Eliquis will be provided. Recommend follow up with cardiology in 1-2 weeks. Recommend to recheck CBC, BMP in 1-2 weeks. 4. Patient with history of COPD. This has remained stable. At discharge he will continue with his medication of Trelegy 1 puff daily. At discharge will recommend to discontinue albuterol as this may increased his heart rate. Will private branch exchange service advisor to Xopenex 2 puffs 3 times a day as needed for shortness of breath. Recommend follow up with pulmonology as directed. 5. Patient with tobacco and alcohol abuse. Cessation education will be provided. 6. Patient with hypertension. At discharge he will continue with metoprolol XL 50 mg 1 pill twice daily and losartan 50 mg daily. Recommend to maintain blood pressures less 150/80. Further adjustment can be done by his PCP or cardiology. Diet: AHA Activity: Ad carlos enrique Time spent managing pt's care (in minutes): 55
[2019-04-07 16:45] VITALS: BP 132/87; TEMP 97.9
== END 2019-04-07 17:40 | disposition home or self-care (01) | DRG 291 ==
LOC: ER 13:05 → ERHOLD 17:23 → 4TH 17:27
PROVIDERS: ADMIT Family Medicine; ATTEND Family Medicine
DX: I11.0 Hypertensive heart disease with heart failure (principal); I50.21 Acute systolic (congestive) heart failure; I48.20 Chronic atrial fibrillation, unspecified; J44.9 Chronic obstructive pulmonary disease, unspecified; F17.210 Nicotine dependence, cigarettes, uncomplicated; F10.10 Alcohol abuse, uncomplicated; Z85.72 Personal history of non-Hodgkin lymphomas
CPT/HCPCS: 36415; 71045; 71046; 80048; 80053; 80076; 83735; 83880; 84484; 85025; 85610; 93005; 93306; 94760; 96372; 96374; 99285; J1650; J1940

== ENCOUNTER 2019-09-20 13:48 | Inpatient (IN) | payer OTHER ==
--- OUTSIDE RECORDS SUMMARY | 2019-09-20 13:50 | XMS REPORT | Clinical Summary ---
:1945 Author Organization [facility] Address [address] [place] [address] Care Team Providers Name Role Phone MD Gracie Primary Care Provider Allergies No Known Allergies Medications No known medications Active Problems Problem Noted Date ALIZE (acute kidney injury) 07/17/2016 Abdominal aneurysm 07/16/2016 S/P abdominal aortic aneurysm repair 07/16/2016 Lethargy 07/16/2016 Anemia due to blood loss 07/16/2016 Thrombocytopenia 07/16/2016 Mild Hypercapnia 07/16/2016 Oliguria 07/16/2016 Pre-procedural cardiovascular examination 07/04/2016 Overview: Added automatically from request for es wetzel [id number] Abdominal aortic aneurysm (AAA) without rupture 2016 Tobacco dependence 06/28/2016 Essential hypertension 06/28/2016 Abnormal stress ECG with treadmill 06/28/2016 Social History Tobacco Use Types Packs/Day Years Used Date Current Every Day Smoker Cigarettes 2 43 Smokeless Tobacco: Never Used Comments: 40 years Alcohol Use Drinks/Week oz/Week Comments Yes 12-16 /every 1 1 /2 weeks Sex Assigned at Date Recorded Not [...] of 2 - PCV13) 01/27/2008 INFLUENZA VACCINE 09/26/2019 Implants Implanted Type Area Marketing Production Manager Device Shelf Model / Identifier Expiration Serial / Lot Date [facility] Vasclr Ptfe [id number] 1.65mm - [id number] Vascular N/A: N/A BARD [id number] / Implanted: 07/16/2016 at [facility] (Quantity not on file) Graft PERIPHERAL / VASCULAR Graft Vasclr [employer]ield [place] Thor 2velr Woven 30cm 24mm - [id number] Vascular N/A: Aorta, [employer] 03/27/2021 [id number] / Implanted: 07/16/2016 at [facility] (Quantity not on file) Gra ft Abdominal СВЕТЛАНА [id number] / [id number] Results Not on fileafter 09/19/2018 Insurance Payer Benefit Plan / Subscriber ID Effective Dates Phone Addre ss Type Group [employer] xxxxxxxx 2016-Prese O HMO MCR ADV nt Advance Directives For more information, please contact: [phone] Type Date Recorded Patient It Operations Analyst Explanati on Advance Directives, Living Will 07/11/2016 10:01 AM and Medical Power of Manager Salt
--- OUTSIDE RECORDS SUMMARY | 2019-09-20 13:51 | XMS REPORT | Continuity of Care Document ---
:1945 Author Organization [facility] t Address [address] [place] [address] [address] [place] [address] Care Team Providers Name Role Phone Kevin Bowman MD Primary Care Physician Rashmi ACUNA Attending Clinician Unavailable Rashmi ACUNA Admitting Clinician Unavailable Problems Condition Condition Condition Status Onset Resolution Last Treating Co mments Source Name Details Category Date Date Treatment Clinician Date ALIZE (acute ALIZE (acute Disease [facility] kidney kidney 07-17 [facility] injury) injury) 00:00: st 00 Abdominal Abdominal Disease Active [place] [facility] aneurysm aneurysm 07-16 Method i 00:00: st 00 S/P S/P Disease Active [place] abdominal abdominal 07-16 Meth eduard aortic aortic 00:00: st aneurysm aneurysm 00 repair repair Lethargy Lethargy Disease Active [place] 07-16 [facility]i 00:00: st 00 Anemia due Anemia due Disease Active [place] to blood to blood 07-16 Method i loss loss 00:00: st 00 Thrombocyt Thrombocyt Disease [place] openia openia 07-16 Methodi 00:00: st 00 Mild Mild Disease Active [place] Hypercapni Hypercapni 07-16 Me thodi a a 00:00: st 00 Oliguria Oliguria Disease Active [place] 07-16 [facility] 00:00: st 00 Pre-proced Pre-proced Disease Active Overview : [place] ural ural 07-04 Added [facility] cardiovasc cardiovasc 00:00: automatic st ular ular 00 ally from examinatio examinatio request n n for surgery [id number] Abdominal Abdominal Disease Active [place] [facility] aortic aortic 06-28 [facility] aneurysm aneurysm 00:00: st (AAA) (AAA) 00 without without rupture rupture Tobacco Tobacco Disease Active [place] dependence dependence - Me thodi 00:00: st 00 Essential Essential Disease Active [place] hypertensi hypertensi 5-04 [facility] on on 00:00: st 00 Abnormal Abnormal Disease Active [place] [facility] tread[facility] treadmill 00 Allergies, Adverse Reactions, Alerts This patient has no known allergies or adverse reactions. Social History Social Habit Start Date Stop Date Quantity Comments Source Sex Assigned At [facility] ethodist Cigarettes smoked 2016-07-24 2016-07-24 [place] [facility] current (pack per 00:00:00 00:00:00 day) - Reported Cigarette 2016-07-24 2016-07-24 [place] Method ist pack-years 00:00:00 00:00:00 Alcohol intake 2016-07-24 2016-07-24 Current drinker [place] [facility] 00:00:00 00:00:00 of alcohol (finding) History of tobacco 2016-07-16 Current smoker [facility] - use 00:00:00 [facility] Tobacco Comment 2016-07-11 2016-07-11 40 years [facility] ethodist 00:00:00 00:00:00 Alcohol Comment 2016-07-11 2016-07-11 12-16 /every 1 [place] [facility] 00:00:00 00:00:00 1/2 weeks Smoking Status Start Date Stop Date Source Former smoker 2016-08-31 00:00:00 2016-08-31 00:00:00 [facility] Current every day 2016-07-24 00:00:00 [facility] smoker Medications Ordered Filled Start Stop Current Ordering Indication Dosage Frequency Signature Comments Components Source Medication Medication Date Date Medication? Clinician (SIG) Name Name aspirin 81 Yes 81mg QD Take [address] [facility] 7[facility]06 [facility] metoprolol Yes 25mg Q.5D Take [address] (LOPRESSOR) 705 by mouth 2 Natacha kes - 25 MG 09:47: (two) Medical tablet 30 times Center daily. atorvastati Yes 20mg QD Take [address] [facility] [address] [facility] (LIPITOR) 7-05 by mouth [facility] - 20 MG 09:47: daily. Medical tablet 30 Center amLODIPine 2017- Yes 5mg QD Take [address] (NORVASC) 5 7-05 by mouth [facility] - MG tablet 09:47: daily. Medica l 30 Center Procedures This patient has no known procedures. Plan of Care Planned Activity Planned Date Details Comments Source Future Scheduled 2019-09-26 INFLUENZA VACCINE [place] [facility] Test 00:00:00 [code = INFLUENZA VACCINE] Future Scheduled 2008-01-27 65+ PNEUMOCOCCAL [place] [facility] Test 00:00:00 VACCINE (1 of 2 - PCV13) [code = 65+ PNEUMOCOCCAL VACCINE (1 of 2 - PCV13)] Future Scheduled 1993 [facility]ONOSCOPY SCREENING [facility] Test 00:00:00 [code = COLONOSCOPY SCREENING] Future Scheduled 1993 SHINGLES VACCINES (#1) [place] [facility] Test 00:00:00 [code = SHINGLES VACCINES (#1)] Results Test Description Test Time Test Comments Results Result Comments Source TISSUE EXAM 2016-08-31 Surgical Pathology 15:59:00 Report Case: [id number] Authorizing Provider: Clinton Acuna MD Collected: 08/30/2016 0909 Ordering Location: [facility] Endoscopy Received: 08/30/2016 1532 Services Pathologist: [...] MARGIN- NO HIGH-GRADE DYSPLASIA AND NO MALIGNANCY IDENTIFIEDElectronica lly signed by Feroz Xiao MD on 08/31/2016 at 3:59 [id number] x 2Rectal massA. Sigmoid colon polypB. Rectal [...]
--- OUTSIDE RECORDS SUMMARY | 2019-09-20 13:51 | XMS REPORT | Clinical Summary ---
:1945 Author Organization [facility] Address [address] [place] [address] Care Team Providers Name Role Phone Kvein Bowman MD Primary Care Provider Allergies No [...] Packs/Day Years Used Date Former Smoker Quit: 07/17/19 17 Smokeless Tobacco: Never Used Tobacco Cessation: Counseling [...] Not on file Results Not on fileafter 09/19/2018 Insurance Payer Benefit Plan / Group Subscriber ID Type Phone A ddress [employer] ALL xxxxxxxx Maps Contracted (Home) [address] [place] [phone]
[2019-09-20] MEDS ORDERED: NA CHLORIDE 0.9% 3,000 ML ONE (14:19)
[2019-09-20] MEDS ORDERED: ACETAMINOPHEN 500 MG TAB ONE (14:19)
[2019-09-20 14:22] LABS: Absolute Lymphocytes (CBC) 0.4 K/uL (0.7-4.9); Basophils % 0.2 % (0-1.3); Hematocrit 45.1 % (39.6-49.0); Lymphocytes % 1.9 % (15.3-44.8); MPV 10.2 fL (7.6-11.3); RBC Red Blood Cell Count 4.93 M/uL (4.33-5.43)
[2019-09-20] MEDS ORDERED: dexAMETHasone 10 MG/ML VIAL ONE (14:30)
[2019-09-20] MEDS ORDERED: METOPROLOL TARTRATE 5 MG/5 ML INJ IV ONE (14:30)
[2019-09-20 14:34] LABS: Protime INR 1.92
[2019-09-20 14:55] LABS: ALT/SGPT 32 U/L (12-78); AST/SGOT 25 U/L (15-37); Albumin 3.1 g/dL (3.4-5.0); Alkaline Phosphatase 106 U/L (45-117); Amylase 38 U/L (25-115); BUN Blood Urea Nitrogen 20 mg/dL (7-18); Bicarbonate 21 mmol/L (21-32); CKMB Creatine Kinase MB < 1.0 ng/mL (0.3-3.6); Creatine Phosphokinase 33 U/L (39-308); Glucose Level 132 mg/dL (74-106); Lipase 155 U/L (73-393); Potassium 3.6 mmol/L (3.5-5.1); Protein, Total 7.5 g/dL (6.4-8.2); Sodium Level 137 mmol/L (136-145); Troponin (Emerg Dept Use Only) 0.17 ng/mL (0.0-0.045)
--- NOTE | 2019-09-20 15:05 | RAD REPORT ---
EXAM DESCRIPTION: Tiffanie Single View09/20/2019 2:34 pm CLINICAL HISTORY: Chest pain COMPARISON: March 2019 FINDINGS: The lungs appear clear of acute infiltrate. The heart is mildly enlarged. Minimal left pl eural effusion decreased in size
[2019-09-20] MEDS ORDERED: Levofloxacin 750mg IV 750 MG/150 ML BAG IV ONE (15:07)
[2019-09-20 15:21] LABS: Urine White Blood Cell Casts OK
[2019-09-20 15:22] LABS: Blood Morphology Comment NOTED (NOT SEEN); Platelet Estimate DECR; Poikilocytosis 1+
--- NOTE | 2019-09-20 15:33 | EDPHYS ---
Physician Documentation [facility] Name: Abraham Stark Age: 74 yrs Sex: Male : 1945 Arrival Date: 09/20/2019 Time: 13:50 Bed 20 Private MD: Nimesh Bowman E ED Physician Polo Vaughan HPI: 09/19 14:11 This 74 yrs old Male presents to ER via Wheelchair with complaints of pm1 Dizziness, Shortness Of Breath, Decreased Appetite. 14:11 The patient has shortness of breath at rest. Onset: The symptoms/episode began/occurred pm1 3 week(s) ago. Duration: The symptoms are continuous, and are unchanged since they started. The patient's shortness of breath is aggravated by exertion, is alleviated by nothing. 14:11 Associated signs and symptoms: Pertinent positives: non-productive cough, dizziness, pm1 Decreased appetite , Pertinent negatives: chest pain, fever, nausea, vomiting. Severity of symptoms: in the emergency department the symptoms are unchanged Pain is currently a 0 / 10. The patient has not recently seen a physician, the patient's primary care provider is Dr. Bowman, Food Service Worker - Dr. Rees. Historical: - Allergies: 14:00 No Known Allergies; hb - Home Meds: 14:00 losartan 50 mg Oral tab 1 tab once daily [Active]; metoprolol tartrate 25 mg Oral tab 1 hb tab 2 times per day [Active]; - PMHx: 14:00 Aneurysm; COPD; Hypertension; NonHodgkin's Lymphoma; RHEUMATIC FEVER; hb - PSHx: 14:00 Hernia repair; Aneurysm repair; hb - Immunization history:: Adult Immunizations up to date. - Social history:: Smoking status: Patient reports the use of cigarette tobacco products, smokes one pack cigarettes per day. ROS: 14:11 Constitutional: Negative for fever, chills, and weight loss, ENT: Negative for injury, pm1 pain, and discharge, Cardiovascular: Negative for chest pain, palpitations, and edema. 14:11 Abdomen/GI: Negative for abdominal pain, nausea, vomiting, diarrhea, and constipation, Back: Negative for injury and pain, MS/Extremity: Negative for injury and deformity, Skin: Negative for injury, rash, and discoloration. 14:11 Respiratory: Positive for cough, shortness of breath, wheezing. 14:11 Neuro: Positive for dizziness, Negative for headache, syncope, near syncope. 14:11 All other systems are negative. Exam: 14:11 Constitutional: This is a well developed, well nourished patient who is awake, alert, pm1 and in no acute distress. Head/Face: Normocephalic, atraumatic. Chest/axilla: Normal chest wall appearance and motion. Nontender with no deformity. No lesions are appreciated. 14:11 Back: No spinal tenderness. No costovertebral tenderness. Full range of motion. Skin: Warm, dry with normal turgor. Normal color with no rashes, no lesions, and no evidence of cellulitis. MS/ Extremity: Pulses equal, no cyanosis. Neurovascular intact. Full, normal range of motion. 14:11 Cardiovascular: Rate: tachycardic, actual rate is 141 bpm, Rhythm: irregular, atrial fibrillation RVR on monitor, Pulses: no pulse deficits are appreciated, Edema: is not appreciated. 14:11 Respiratory: the patient does not display signs of respiratory distress, Respirations: tachypnea, that is mild. 14:11 Abdomen/GI: Inspection: abdomen appears normal, Palpation: abdomen is soft and non-tender, in all quadrants. 14:11 Neuro: Exam negative for acute changes, Orientation: is normal, Mentation: is normal, Motor: is normal, moves all fours. Vital Signs: 13:57 BP 121 / 89; Pulse 75; Resp 28; Temp 100.6(O); Pulse Ox 97% on R/A; Weight 83.01 kg; hb Height 5 ft. 9 in. (175.26 cm); Pain 2/10; 14:16 Pulse 123; Resp 30; Pulse Ox 97% ; Pain 0/10; ks7 14:45 BP 85 / 60; Pulse 81; Resp 24; Pulse Ox 96% on R/A; Pain 0/10; ks7 15:00 BP 88 / 54; Pulse 94; Resp 24; Pulse Ox 96% on R/A; Pain 0/10; ks7 15:30 BP 91 / 65; Pulse 85; Resp 22; Pulse Ox 97% on R/A; Pain 0/10; ks7 16:00 BP 110 / 79; Pulse 92; Resp 25; Pulse Ox 98% on R/A; ca1 16:15 BP 96 / 71; Pulse 87; Resp 22; Pulse Ox 97% on R/A; Pain 0/10; ks7 16:34 BP 124 / 80; Pulse 99; Resp 22; Pulse Ox 98% on R/A; Pain 0/10; ks7 16:43 Pulse Ox 98% on R/A; ks7 16:43 Pulse Ox 98% ; Pain 0/10; ks7 16:44 BP 124 / 80; Pulse 95; ks7 16:44 Pulse Ox 98% ; Pain 0/10; ks7 16:44 Pain 0/10; ks7 16:57 BP 115 / 80; Pulse 97; Resp 26; Temp 98.8(O); Pulse Ox 98% on R/A; Pain 0/10; ks7 16:58 BP 115 / 80; Pulse 98; Pulse Ox 98% on R/A; Pain 0/10; ks7 17:00 BP 102 / 79; Pulse 94; Resp 22; Pulse Ox 97% on R/A; Pain 0/10; ks7 17:15 BP 119 / 82; Pulse 96; Resp 18; Temp 98.6(O); Pulse Ox 99% on R/A; Pain 0/10; ks7 17:30 BP 118 / 89; Pulse 93; Resp 24; Pulse Ox 99% on R/A; Pain 0/10; ks7 17:45 BP 121 / 100; Pulse 95; Resp 22; Pulse Ox 99% on R/A; Pain 0/10; ks7 18:00 BP 127 / 112; Pulse 93; Resp 22; Pulse Ox 98% ; Pain 0/10; ks7 18:30 BP 129 / 93; Pulse 84; Temp 98.3(O); Pulse Ox 99% on R/A; Pain 0/10; ks7 19:00 BP 125 / 84; Pulse 73; Resp 18; Pulse Ox 98% on R/A; Pain 0/10; ks7 19:30 BP 142 / 80; Pulse 86; Resp 20; Pulse Ox 99% on R/A; Pain 0/10; ks7 13:57 Body Mass Index 27.02 (83.01 kg, 175.26 cm) hb MDM: 14:08 Patient medically screened. [facility] 14:51 Data reviewed: vital signs. Data interpreted: Pulse oximetry: on room air is 97 %. pm1 Interpretation: normal. 14:54 Counseling: I had a detailed discussion with the patient and/or guardian regarding: the pm1 historical points, exam findings, and any diagnostic results supporting the discharge/admit diagnosis, lab results, the need for further work-up and treatment in the hospital. 14:54 Physician consultation: Kadeem Polanco EDNA was called at 14:54, was contacted at 14:54, pm1 regarding admission, patient's condition, and will see patient in ED. 15:01 ED course: Patient currently taking Eliquis for atrial fibrillation. Patient's elevated pm1 troponin likely from infection and/or possible atrial fibrillation over the past 3 weeks. 09/19 14:07 Order name: Amylase, Serum; Complete Time: 14:57 pm1 09/19 14:07 Order name: Basic Metabolic Panel; Complete Time: 14:57 pm1 09/19 14:07 Order name: Blood Culture Adult (2) pm1 09/19 14:07 Order name: CBC with Diff; Complete Time: 15:23 pm09/19 14:07 Order name: Ckmb; Complete Time: 14:57 pm09/19 14:07 Order name: CPK; Complete Time: 14:57 pm1 09/19 14:07 Order name: Lactate; Complete Time: 14:46 pm1 09/19 14:07 Order name: LFT's; Complete Time: 14:57 pm1 09/19 14:07 Order name: Lipase; Complete Time: 14:57 pm1 09/19 14:07 Order name: Procalcitonin; Complete Time: 14:57 pm1 09/19 14:07 Order name: Protime (+inr); Complete Time: 14:46 pm09/19 14:07 Order name: Ptt, Activated; Complete Time: 14:46 pm09/19 14:07 Order name: Troponin (emerg Dept Use Only); Complete Time: 14:57 pm09/19 14:07 Order name: Urine Microscopic Only pm09/19 14:07 Order name: Chest Single View XRAY; Complete Time: 15:10 pm09/19 14:07 Order name: Accucheck; Complete Time: 14:17 pm09/19 14:07 Order name: Cardiac monitoring; Complete Time: 14:17 pm09/19 14:07 Order name: COVID-19 pm1 09/19 14:07 Order name: Flu pm1 09/19 14:07 Order name: Strep pm1 09/19 14:27 Order name: Glucose, Ancillary Testing; Complete Time: 14:35 EDMS 09/19 15:22 Order name: CBC Smear Scan; Complete Time: 15:23 EDMS 09/19 17:43 Order name: Lactate Sepsis 2 HR Follow-up; Complete Time: 17:45 EDMS 09/19 14:07 Order name: EKG - Nurse/Tech; Complete Time: 16:44 pm1 09/19 14:07 Order name: IV Saline Lock - Large Bore; Complete Time: 14:18 pm1 09/19 14:07 Order name: Labs collected and sent; Complete Time: 14:18 pm1 09/19 14:07 Order name: O2 Per Protocol; Complete Time: 14:18 pm1 09/19 14:07 Order name: O2 Sat Monitoring; Complete Time: 14:18 pm1 09/19 14:07 Order name: Document PUI#; Complete Time: 14:15 pm1 09/19 14:07 Order name: Droplet/Contact Precautions; Complete Time: 14:15 pm1 09/19 14:07 Order name: Notify Health Dept [phone]/ ; Complete Time: 14:15 pm1 Administered Medications: Discontinued: NS 0.9% (30 ml/kg) 30 ml/kg IV at bolus once; Sepsis Protocol Discontinued: LevaQUIN 750 mg 150 ml IVPB once over 90 mins 14:16 Drug: NS 0.9% (30 ml/kg) 30 ml/kg Route: IV; Rate: bolus; Site: left antecubital; ca1 16:58 Follow up: BP 115 / 80; Pulse 98 bpm; Pulse Ox 98% RA; Pain 0/10 Adult ks7 14:18 Drug: Tylenol 1000 mg Route: PO; hb 16:44 Follow up: Pain 0/10 Adult ks7 14:40 Drug: Lopressor 5 mg Route: IVP; Site: right antecubital; ks7 16:44 Follow up: BP 124 / 80; Pulse 95 bpm ks7 14:44 Drug: Decadron - Dexamethasone 10 mg Route: IVP; Site: right antecubital; ks7 16:44 Follow up: Pulse Ox 98% ; Pain 0/10 Adult ks7 15:09 Drug: LevaQUIN 750 mg Volume: 150 ml; Route: IVPB; Infused Over: 90 mins; Site: left ks7 hand; 16:43 Follow up: Pulse Ox 98% ; Pain 0/10 Adult ks7 15:27 Not Given (Physician Discretion): Xopenex (3) 1.25 mg Inhalation once pm1 16:15 Drug: Albuterol HFA Inhaler 2 puffs Route: Inhalation; ks7 16:43 Follow up: Pulse Ox 98% ks7 Disposition: 09/20 05:31 Co-signature as Attending Physician, Polo Vaughan MD I agree with the assessment and gabby plan of care. Disposition: 09/20/19 17:56 Hospitalization ordered by Too Burgess for Inpatient Admission. Preliminary diagnosis are Atrial fibrillation and flutter - RVR, Chronic obstructive pulmonary disease with (acute) exacerbation. - Bed requested for Telemetry/MedSurg (Inpatient). - Status is Inpatient Admission. ks7 - Condition is Stable. - Problem is new. - Symptoms have improved. Signatures: Dispatcher [employer] EDPolo Muñoz MD MD cha Marinas, Patrick, DEB CARD PAINTER pm1 Orquidea Graves RN RN Shahram Patel RN RN ja1 Anna Mane Cheryl, RN RN [facility] Emilai Acuña RN RN ks7 Corrections: (The following items were deleted from the chart) 09/19 17:53 15:32 Hospitalization Ordered by Too Burgess MD for Inpatient Admission. ja1 Preliminary diagnosis is Unspecified atrial fibrillation - RVRChronic obstructive pulmonary disease with (acute) exacerbation. Bed requested for Telemetry/MedSurg (Inpatient). Status is Inpatient Admission. Condition is Stable. Problem is new. Symptoms have improved. pm1 17:53 17:53 09/20/2019 15:32 Hospitalization Ordered by Too Burgess MD for Inpatient ja Admission. Preliminary diagnosis is Unspecified atrial fibrillation - RVRChronic obstructive pulmonary disease with (acute) exacerbation. Bed requested for [facility] ER HOLD. Status is Inpatient Admission. Condition is Stable. Problem is new. Symptoms have improved. ja1 18:34 17:56 Hospitalization Ordered by Too Burgess MD for Inpatient Admission. eb Preliminary diagnosis is Atrial fibrillation and flutter - RVR; Chronic obstructive pulmonary disease with (acute) exacerbation. Bed requested for Telemetry/MedSurg (Inpatient). Status is Inpatient Admission. Condition is Stable. Problem is new. Symptoms have improved. pm1 21:01 18:34 09/20/2019 17:56 Hospitalization Ordered by Too Burgess MD for Inpatient ks7 Admission. Preliminary diagnosis is Atrial fibrillation and flutter - RVR; Chronic obstructive pulmonary disease with (acute) exacerbation. Bed requested for Telemetry/MedSurg (Inpatient). Status is Inpatient Admission. Condition is Stable. Problem is new. Symptoms have improved. eb
--- NOTE | 2019-09-20 15:33 | ER ---
Nurse's Notes [facility] Name: Abraham Stark Age: 74 yrs Sex: Male : 1945 Arrival Date: 09/20/2019 Time: 13:50 Bed 20 Private MD: Nimesh Bowman E Diagnosis: Atrial fibrillation and flutter-RVR;Chronic obstructive pulmonary disease with (acute) exacerbation Presentation: 09/19 13:57 Chief complaint: SOB, cough, nausea, body aches, lethargy, decreased appetite, chills, hb and headache x 3 weeks, diarrhea today. SOB worse over last few days. Coronavirus screen: Patient reports a cough. Patient reports shortness of breath or difficulty breathing. Patient reports a measured and/or subjective temperature greater than 100.4F. Patient denies travel on a cruise ship or to a country the [facility] currently lists as an affected area. Patient denies contact with known and/or suspected case of COVID-19. Patient instructed to continue to wear a mask when interacting with others. Patient moved to private room, placed in contact and droplet isolation with eye protection until further assessment. Ebola Screen: No symptoms or risks identified at this time. Initial Sepsis Screen: Does the patient meet any 2 criteria? RR > 20 per min. No. Patient's initial sepsis screen is negative. Does the patient have a suspected source of infection? No. Patient's initial sepsis screen is negative. Risk Assessment: Do you want to hurt yourself or someone else? Patient reports no desire to harm self or others. Onset of symptoms was August 26, 2019. 13:57 Method Of Arrival: Wheelchair hb 13:57 Acuity: KIERSTEN 2 hb Triage Assessment: 14:16 General: Appears distressed, Behavior is cooperative. Pain: Denies pain. Respiratory: ks7 Reports shortness of breath cough that is labored breathing since 3 weeks Onset: The symptoms/episode began/occurred 3 weeks, the patient has severe shortness of breath. Historical: - Allergies: 14:00 No Known Allergies; hb - Home Meds: 14:00 losartan 50 mg Oral tab 1 tab once daily [Active]; metoprolol tartrate 25 mg Oral tab 1 hb tab 2 times per day [Active]; - PMHx: 14:00 Aneurysm; COPD; Hypertension; NonHodgkin's Lymphoma; RHEUMATIC FEVER; hb - PSHx: 14:00 Hernia repair; Aneurysm repair; hb - Immunization history:: Adult Immunizations up to date. - Social history:: Smoking status: Patient reports the use of cigarette tobacco products, smokes one pack cigarettes per day. Screenin:20 Abuse screen: Denies threats or abuse. Denies injuries from another. Nutritional ca1 screening: No deficits noted. Tuberculosis screening: No symptoms or risk factors identified. Fall Risk IV access (20 points). Assessment: 15:09 Cardiovascular: Rhythm is atrial fibrillation. Respiratory: Airway is patent ks7 Respiratory effort is labored, shallow, Breath sounds are clear bilaterally. in left upper lobe and left lower lobe Breath sounds with crackles in right middle lobe and right lower lobe. 16:34 Reassessment: Patient states feeling better. Patient states symptoms have improved. ks7 Pain: Denies pain. 18:53 Reassessment: tried to call report no answer. ks7 19:40 Reassessment: tried to call report no answer. ks7 Vital Signs: 13:57 BP 121 / 89; Pulse 75; Resp 28; Temp 100.6(O); Pulse Ox 97% on R/A; Weight 83.01 kg; hb Height 5 ft. 9 in. (175.26 cm); Pain 2/10; 14:16 Pulse 123; Resp 30; Pulse Ox 97% ; Pain 0/10; ks7 14:45 BP 85 / 60; Pulse 81; Resp 24; Pulse Ox 96% on R/A; Pain 0/10; ks7 15:00 BP 88 / 54; Pulse 94; Resp 24; Pulse Ox 96% on R/A; Pain 0/10; ks7 15:30 BP 91 / 65; Pulse 85; Resp 22; Pulse Ox 97% on R/A; Pain 0/10; ks7 16:00 BP 110 / 79; Pulse 92; Resp 25; Pulse Ox 98% on R/A; ca1 16:15 BP 96 / 71; Pulse 87; Resp 22; Pulse Ox 97% on R/A; Pain 0/10; ks7 16:34 BP 124 / 80; Pulse 99; Resp 22; Pulse Ox 98% on R/A; Pain 0/10; ks7 16:43 Pulse Ox 98% on R/A; ks7 16:43 Pulse Ox 98% ; Pain 0/10; ks7 16:44 BP 124 / 80; Pulse 95; ks7 16:44 Pulse Ox 98% ; Pain 0/10; ks7 16:44 Pain 0/10; ks7 16:57 BP 115 / 80; Pulse 97; Resp 26; Temp 98.8(O); Pulse Ox 98% on R/A; Pain 0/10; ks7 16:58 BP 115 / 80; Pulse 98; Pulse Ox 98% on R/A; Pain 0/10; ks7 17:00 BP 102 / 79; Pulse 94; Resp 22; Pulse Ox 97% on R/A; Pain 0/10; ks7 17:15 BP 119 / 82; Pulse 96; Resp 18; Temp 98.6(O); Pulse Ox 99% on R/A; Pain 0/10; ks7 17:30 BP 118 / 89; Pulse 93; Resp 24; Pulse Ox 99% on R/A; Pain 0/10; ks7 17:45 BP 121 / 100; Pulse 95; Resp 22; Pulse Ox 99% on R/A; Pain 0/10; ks7 18:00 BP 127 / 112; Pulse 93; Resp 22; Pulse Ox 98% ; Pain 0/10; ks7 18:30 BP 129 / 93; Pulse 84; Temp 98.3(O); Pulse Ox 99% on R/A; Pain 0/10; ks7 19:00 BP 125 / 84; Pulse 73; Resp 18; Pulse Ox 98% on R/A; Pain 0/10; ks7 19:30 BP 142 / 80; Pulse 86; Resp 20; Pulse Ox 99% on R/A; Pain 0/10; ks7 13:57 Body Mass Index 27.02 (83.01 kg, 175.26 cm) hb ED Course: 13:50 Patient arrived in ED. ag5 13:50 Nimesh Bowman MD is Private Physician. ag5 13:59 Triage completed. hb 14:00 Arm band placed on. hb 14:01 Emilia Acuña, JODY is Primary Nurse. ks7 14:05 Lizandro Ascencio NP is PHCP. pm1 14:05 Polo Vaughan MD is Attending Physician. pm1 14:10 First set of blood cultures drawn by ia. ca1 14:10 Inserted saline lock: 20 gauge in left hand, using aseptic technique. ,using aseptic ks7 technique. by JODY Nieto Blood collected. 14:13 Inserted saline lock: 20 gauge in right antecubital area, using aseptic technique. ca1 Blood collected. 14:13 Initial lab(s) drawn, by me, sent to lab. Second set of blood cultures drawn by me. ca1 14:20 Patient has correct armband on for positive identification. Placed in gown. Bed in low ca1 position. Call light in reach. Side rails up X2. campus monitor on. Pulse ox on. NIBP on. 14:34 Chest Single View XRAY In Process Unspecified. EDMS 14:50 Emilia Acuña, JODY is Primary Nurse. ks7 14:53 COVID-19 Sent. ks7 14:53 Flu Sent. ks7 14:53 Strep Sent. ks7 15:32 Too Burgess MD is Hospitalizing Provider. pm1 15:53 No provider procedures requiring assistance completed. ks7 17:56 Too Burgess MD is Hospitalizing Provider. pm1 Administered Medications: Discontinued: NS 0.9% (30 ml/kg) 30 ml/kg IV at bolus once; Sepsis Protocol Discontinued: LevaQUIN 750 mg 150 ml IVPB once over 90 mins 14:16 Drug: NS 0.9% (30 ml/kg) 30 ml/kg Route: IV; Rate: bolus; Site: left antecubital; ca1 16:58 Follow up: BP 115 / 80; Pulse 98 bpm; Pulse Ox 98% RA; Pain 0/10 Adult ks7 14:18 Drug: Tylenol 1000 mg Route: PO; hb 16:44 Follow up: Pain 0/10 Adult ks7 14:40 Drug: Lopressor 5 mg Route: IVP; Site: right antecubital; ks7 16:44 Follow up: BP 124 / 80; Pulse 95 bpm ks7 14:44 Drug: Decadron - Dexamethasone 10 mg Route: IVP; Site: right antecubital; ks7 16:44 Follow up: Pulse Ox 98% ; Pain 0/10 Adult ks7 15:09 Drug: LevaQUIN 750 mg Volume: 150 ml; Route: IVPB; Infused Over: 90 mins; Site: left ks7 hand; 16:43 Follow up: Pulse Ox 98% ; Pain 0/10 Adult ks7 15:27 Not Given (Physician Discretion): Xopenex (3) 1.25 mg Inhalation once pm1 16:15 Drug: Albuterol HFA Inhaler 2 puffs Route: Inhalation; ks7 16:43 Follow up: Pulse Ox 98% RA ks7 Outcome: 15:32 Decision to Hospitalize by Provider. pm1 17:56 Decision to Hospitalize by Provider. pm1 19:36 Admitted to Med/surg accompanied by tech, via stretcher, room 404. ks7 19:36 Condition: improved 19:36 Discharge instructions given to patient, Instructed on the need for admit. 19:53 Admitted to Med/surg room 404, Report called to Crystal VERA ks7 21:01 Patient left the ED. ks7 Signatures: Dispatcher [employer] EDMS Lizandro Ascencio, DEB OFFBEARER pm1 Orquidea Graves RN RN Nini Crystal RN RN ca1 Reji Christina ag5 Emilia Acuña RN RN ks7 Corrections: (The following items were deleted from the chart) 14:05 13:57 Chief complaint: SOB, productive cough, nausea, body aches, lethargy, decreased hb appetite, and headache x 3 weeks, diarrhea today. SOB worse over last few days. hb 14:05 13:57 Chief complaint: SOB, cough, nausea, body aches, lethargy, decreased appetite, hb and headache x 3 weeks, diarrhea today. SOB worse over last few days. hb 14:19 14:18 Inserted saline lock: 20 gauge in right antecubital area, using aseptic ca1 technique. Blood collected. ca1 14:19 14:13 Initial lab(s) drawn, by ia, sent to lab. First set of blood cultures drawn by [facility], ca1 15:54 14:10 Inserted saline lock: 20 gauge in left antecubital area, using aseptic technique. ks7 ,using aseptic technique. by JODY Nieto Blood collected. ca1
[2019-09-20] MEDS ORDERED: ALBUTEROL INHALER 60 PUFF/8 GM IH ONE (16:10)
--- NOTE | 2019-09-20 16:24 | P.HP ---
Certification for Inpatient Patient admitted to: Inpatient With expected LOS: >2 Midnights Patient will require the following post-hospital care: None Practitioner: I am a practitioner with admitting privileges, knowledge of patient current condition, hospital course, and medical plan of care. Services: Services provided to patient in accordance with Admission requirements found in Title 42 Section 412.3 of the Code of Federal Regulations <Kadeem Polanco - Last Filed: 09/20/19 16:16> Patient History Date of Service: 09/20/19 Primary Care Provider: dr. Bowman, Cardiology Dr. Hoffman Reason for admission: Sepsis History of Present Illness: 74-year-old male with history of hypertension, atrial fibrillation, COPD, presents emergency department with a chief complaint of shortness of breath, nausea, diarrhea. Patient reports that he has been feeling unwell for approximately 1 month has gotten worse recently. Patient reports he has been feeling very weak as well. The patient presented because of his worsening shortness of breath. During his evaluation in the emergency department patient was found to have elevated white blood cell count at 21, elevated lactate at 2.9, temperature 100.6, heart rate of around 120, and had multiple readings of hypotension as low as 77/52. Patient had chest x-ray that showed small pleural effusion noted acute findings. Patient denies any abdominal pain. ED provider wishes to admit patient for further evaluation and management. When I saw the patient in the emergency department he was in no distress although he was hypotensive and tachycardic. Patient is fighting for sepsis. Patient did receive sepsis fluids in the emergency department. Due to multiple readings of hypotension in the emergency department with aggressive hydration will admit patient to the intensive care unit for overnight monitoring. - Past Medical/Surgical History Diabetic: No -: Rheumatic fever -: Aortic ANeurysm -: HTN -: COPD -: Non Hodgkins Lymphoma -: Skin Cancer -: Atrial fibrillation on chronic anticoagulation therapy -: Aortic Aneurysm Repair -: Hernia Repair Psychosocial/ Personal History: Patient lives at home with his in [facility] - Family History Family History: Reviewed- Non-Contributory - Family History Mother -: Diabetes - Social History Smoking Status: Current every day smoker Alcohol use: Yes CD- Drugs: No Caffeine use: Yes Place of Residence: Home <CollinKadeem - Last Filed: 09/20/19 16:16> Date of Service: 09/20/19 <AdityaToo Lamont - Last Filed: 09/20/19 18:09> Allergies No Known Allergies Allergy (Verified 03/14/18 00:16) Home Medications: Metoprolol Succinate [Toprol Xl*] 50 mg PO BID 09/30/15 Albuterol Sulfate [Proair Hfa] 8.5 gm IH TID PRN 03/14/18 Fluticasone/Umeclidin/Vilanter [Trelegy Ellipta 100-62.5-25] 1 puff IH DAILY 04/06/19 Losartan Potassium [Cozaar] 1 tab PO DAILY 04/06/19 Apixaban [Eliquis] 5 mg PO BID #60 tablet 04/07/19 Furosemide [Lasix] 40 mg PO BIDL #60 tab 04/07/19 Levalbuterol Tartrate [Xopenex Hfa] 2 puff IH TID PRN #1 hfa.aer.[id number] 04/07/19 Review of Systems 10-point ROS is otherwise unremarkable General: Fever, Chills, Weakness, Malaise Respiratory: Cough, Shortness of Breath <Kadeem Polanco - Last Filed: 09/20/19 16:16> Physical Examination - Physical Exam General: Alert, In no apparent distress HEENT: Atraumatic, PERRLA, Other (Mucous membranes dry), EOMI, Sclerae nonicteric Neck: Supple, 2+ carotid pulse no bruit, No LAD, Without JVD or thyroid abnormality Respiratory: Clear to auscultation bilaterally, Normal air movement Cardiovascular: Regular rate/rhythm, Normal S1 S2 Gastrointestinal: Normal bowel sounds, No tenderness Musculoskeletal: No tenderness Integumentary: No rashes Neurological: Normal gait, Normal speech, Normal strength at 5/5 x4 extr, Normal tone, Normal affect - Studies Laboratory Data (last 24 hrs) 09/20/19 14:13: PT 22.4 H, INR 1.92, APTT 35.1 09/20/19 14:13: WBC 21.2 H*, Hgb 15.6, Hct 45.1, Plt Count 79 L 09/20/19 14:13: Sodium 137, Potassium 3.6, BUN 20 H, Creatinine 1.40 H, Glucose 132 H, Total Bilirubin 2.0 H, AST 25, ALT 32, Alkaline Phosphatase 106, Amylase 38, Lipase 155 <Kadeem Polanco - Last Filed: 09/20/19 16:16> - Studies Laboratory Data (last 24 hrs) 09/20/19 14:13: PT 22.4 H, INR 1.92, APTT 35.1 09/20/19 14:13: WBC 21.2 H*, Hgb 15.6, Hct 45.1, Plt Count 79 L 09/20/19 14:13: Sodium 137, Potassium 3.6, BUN 20 H, Creatinine 1.40 H, Glucose 132 H, Total Bilirubin 2.0 H, AST 25, ALT 32, Alkaline Phosphatase 106, Amylase 38, Lipase 155 <Susannah Burgesswoodrow Miguel - Last Filed: 09/20/19 18:09> Assessment and Plan - Plan Assessment Severe sepsis secondary to suspected bacterial pneumonia complicated by history of COPD Atrial fibrillation on chronic anticoagulation therapy Hypertension History of aortic aneurysm with repair Plan Severe sepsis secondary to suspected bacterial pneumonia complicated by history of COPD: Due to multiple readings of hypotension while in the emergency department will admit patient to the intensive care unit for further monitoring. Broad-spectrum antibiotics have been started. Patient has had sepsis was the emergency department. Blood cultures obtained in the emergency department will also obtain urine. Patient not having any abdominal pain or other sources of infection identifiable. DVT prophylaxis with Eliquis 5 mg p.o. b.i.d., patient's home medication. Will reassess patient after full sepsis fluids have been administered to determine if patient will need vasopressor therapy. Elevated troponin likely secondary to Atrial fibrillation with rapid ventricular response on chronic anticoagulation therapy: Patient's rate is better controlled after receiving metoprolol in the emergency department. Have consult Cardiology on this patient. Likely demand ischemia. Appreciate further input from cardiology. Continue patient's Eliquis. Hypertension: Will monitor patient's blood pressure closely as he was hypotensive. Blood pressure medications in place with parameters. History of aortic aneurysm with repair: Stable at this time, patient without abdominal pain or back pain. Will continue to monitor closely. Discharge Plan: Home Plan to discharge in: 48 Hours - Advance Directives Does patient have a Living Will: No Does patient have a Durable POA for Healthcare: No - Code Status/Comfort Care Code Status Assessed: Yes (Patient is full code) Critical Care: No Time Spent Managing Pts Care (In Minutes): 55 <Kadeem Polanco - Last Filed: 09/20/19 16:16> Physician Review Additional Text: patient P 74 years of age with a history of COPD admitted with acute onset of fever chills was hypotensive on admission is doing much better denies any respi ratory distress patient's white count is elevated agree with antibiotics blood cultures rule out flores virus creatinine is a little elevated patient has done well with IV fluids <Too Burgess - Last Filed: 09/20/19 18:09>
[2019-09-20] MEDS ORDERED: Pharmacy Consult 1 EA XX PRN (18:06)
[2019-09-20] MEDS ORDERED: VANCOMYCIN 2 GM in NA CHLORIDE 0.9% 500 ML IVPB ONE (19:00)
[2019-09-20] MEDS ORDERED: VANCOMYCIN 1.5 GM in NA CHLORIDE 0.9% 500 ML IVPB SCH (19:00)
[2019-09-20] MEDS ORDERED: ACETAMINOPHEN 500 MG TAB PO PRN (20:55)
[2019-09-20] MEDS ORDERED: ONDANSETRON 4 MG/2 ML VIAL IV PRN (20:55)
[2019-09-20] MEDS ORDERED: POTASSIUM CL SA 10 MEQ TAB PO ONE (20:59)
[2019-09-20] MEDS ORDERED: DULERA 200/5 (MOMETASONE/FORMOTEROL) INHALER IH SCH (21:00)
[2019-09-20] MEDS ORDERED: CEFEPIME 1 GM/VIAL IV SCH (21:00)
[2019-09-20] MEDS ORDERED: VANCOMYCIN 1 GM in NA CHLORIDE 0.9% 500 ML IVPB SCH (21:00)
[2019-09-20 21:05] VITALS: BMI 27.8
[2019-09-20] MEDS ORDERED: VANCOMYCIN 1 GM/VIAL ONE (21:58)
[2019-09-20] MEDS ORDERED: Levofloxacin 750mg IV 750 MG/150 ML BAG IV SCH (22:00)
[2019-09-20] MEDS ORDERED: CEFEPIME 2 GM VIAL ONE (22:01)
[2019-09-20] MEDS: NA CHLORIDE 0.9% 1,000 ML IV SCH (22:03)
[2019-09-20] MEDS: METOPROLOL TAR 25 MG TAB PO SCH (22:04)
[2019-09-20] MEDS: APIXABAN 5 MG TABLET PO SCH (22:04)
[2019-09-20] MEDS: METHYLPREDNISOLONE 40 MG INJ IV SCH (22:04)
[2019-09-20] MEDS ORDERED: NA CHLORIDE 0.9% 500 ML ONE (22:13)
[2019-09-21 01:41] LABS: Urine Appearance CLEAR; Urine Blood 1+ (NEG); Urine Color DK YELLOW; Urine Glucose NEGATIVE (NEG); Urine Protein 1+ (NEG)
[2019-09-21 01:46] LABS: Urine Bilirubin NEGATIVE (NEG); Urine Microscopic Reflex ORDER UMIC
[2019-09-21 01:55] LABS: Urine Bacteria <20 /HPF (NONE SEEN); Urine Coarse Granular Casts 0-5 /LPF (NONE SEEN); Urine Culture Reflex Order NOT NEEDED; Urine RBC <5 /HPF (NONE SEEN); Urine Urothelial Cells <5 /HPF (NONE SEEN)
[2019-09-21] MEDS: NA CHLORIDE 0.9% 1,000 ML IV SCH ×2 (04:34→13:46)
[2019-09-21] MEDS: METOPROLOL TAR 25 MG TAB PO SCH ×2 (05:09→17:12)
[2019-09-21] MEDS: METHYLPREDNISOLONE 40 MG INJ IV SCH ×3 (05:12→22:54)
[2019-09-21 06:32] LABS: Basophils % 0.1 % (0-1.3); Hematocrit 39.9 % (39.6-49.0); Lymphocytes % 5.7 % (15.3-44.8); MPV 10.7 fL (7.6-11.3); RBC Red Blood Cell Count 4.35 M/uL (4.33-5.43)
[2019-09-21 06:57] LABS: Ferritin 392.5 ng/mL (26-388); Magnesium 2.1 mg/dL (1.8-2.4); Potassium 3.9 mmol/L (3.5-5.1); Troponin I 0.1 ng/mL (0.0-0.045)
[2019-09-21] MEDS: DULERA 200/5 (MOMETASONE/FORMOTEROL) INHALER IH SCH ×2 (08:00→20:00)
[2019-09-21] MEDS ORDERED: POTASSIUM CL SA 10 MEQ TAB PO ONE (09:00)
[2019-09-21] MEDS: CEFEPIME/SWI 1gm 10 ML IV SCH ×2 (09:00→22:53)
[2019-09-21] MEDS: LOSARTAN POTASSIUM 50 MG TABLET PO SCH (09:14)
[2019-09-21] MEDS: APIXABAN 5 MG TABLET PO SCH ×2 (09:15→22:53)
--- NOTE | 2019-09-21 09:56 | P.PN ---
Subjective Date of Service: 09/21/19 Primary Care Provider: dr. Bowman, Cardiology Dr. Hoffman Chief Complaint: Sepsis Subjective: Improving <Kadeem Polanco - Last Filed: 09/21/19 09:53> Date of Service: 09/21/19 <Vinh Payton - Last Filed: 09/21/19 15:20> Review of Systems General: Chills, Weakness, Malaise Respiratory: Cough <Kadeem Polanco - Last Filed: 09/21/19 09:53> Physical Examination - Vital Signs Temperature: 97.1 F Blood Pressure: 134/65 Pulse: 73 Respirations: 18 Pulse Ox (%): 94 - Physical Exam General: Alert, In no apparent distress HEENT: Atraumatic, PERRLA, EOMI Neck: Supple, JVD not distended Respiratory: Clear to auscultation bilaterally, Normal air movement Cardiovascular: Regular rate/rhythm, Normal S1 S2 Gastrointestinal: Normal bowel sounds, No tenderness Musculoskeletal: No tenderness Integumentary: No rashes Neurological: Normal speech, Normal tone, Normal affect Lymphatics: No axilla or inguinal lymphadenopathy - Studies Laboratory Data (last 24 hrs) 09/20/19 14:13: PT 22.4 H, INR 1.92, APTT 35.1 09/20/19 14:13: WBC 21.2 H*, Hgb 15.6, Hct 45.1, Plt Count 79 L 09/20/19 14:13: Sodium 137, Potassium 3.6, BUN 20 H, Creatinine 1.40 H, Glucose 132 H, Total Bilirubin 2.0 H, AST 25, ALT 32, Alkaline Phosphatase 106, Amylase 38, Lipase 155 Microbiology Data (last 24 hrs): 09/20/19 14:25 Nasopharnyx Influenza Type A Antigen Screen - Final 09/20/19 14:25 Nasopharnyx Influenza Type B Antigen Screen - Final 09/20/19 14:25 Throat Group A Streptococcus Rapid Screen - Final Medications List Reviewed: Yes <Kadeem Polanco - Last Filed: 09/21/19 09:53> - Studies Laboratory Data (last 24 hrs) 09/20/19 14:13: WBC 21.2 H*, Hgb 15.6, Hct 45.1, Plt Count 79 L Microbiology Data (last 24 hrs): 09/20/19 14:25 Nasopharnyx Influenza Type A Antigen Screen - Final 09/20/19 14:25 Nasopharnyx Influenza Type B Antigen Screen - Final 09/20/19 14:25 Throat Group A Streptococcus Rapid Screen - Final <Vinh Payton - Last Filed: 09/21/19 15:20> Assessment & Plan Physician Review Additional Text: Assessment Severe sepsis secondary to suspected bacterial pneumonia complicated by history of COPD Atrial fibrillation on chronic anticoagulation therapy Hypertension History of aortic aneurysm with repair Plan Severe sepsis secondary to suspected bacterial pneumonia complicated by history of COPD: Was able to downgrade Patient to telemetry yesterday after blood pressure remained stable after fluid resuscitation. Broad-spectrum antibiotics have been started. Patient has had sepsis was the emergency department. Blood cultures obtained in the emergency department and are positive preliminarily for Gram positive cocci in pairs and chains, await final culture report and sensitivity. Patient not having any abdominal pain or other sources of infection identifiable. DVT prophylaxis with Eliquis 5 mg p.o. b.i.d., patient's home medication. Continue to monitor patient closely. Elevated troponin likely secondary to Atrial fibrillation with rapid ventricular response on chronic anticoagulation therapy: Patient's rate is better controlled after receiving metoprolol in the emergency department. Have consult Cardiology on this patient. Likely demand ischemia. Appreciate further input from cardiology. Continue patient's Eliquis. Hypertension: Will monitor patient's blood pressure closely as he was hypotensive. Blood pressure medications in place with parameters. History of aortic aneurysm with repair: Stable at this time, patient without abdominal pain or back pain. Will continue to monitor closely. Critical Care: No Time Spent Managing Pts Care (In Minutes): 55 <Kadeem Polanco - Last Filed: 09/21/19 09:53> Physician Review Additional Text: Patient was seen and examined and findings were discussed Agree with the assessment and plan as documented by the SRINIVAS <Vinh Payton - Last Filed: 09/21/19 15:20>
--- NOTE | 2019-09-21 12:01 | RAD REPORT ---
EXAM DESCRIPTION: CT - Chest Angio - 09/21/2019 11:33 am CLINICAL HISTORY: sepsis, suspect pneumonia, elevatd trop r/o pe COMPARISON: Thorax Wo Con dated 08/20/2017; Chest Single View dated 09/20/2019 TECHNIQUE: Dynamically enhanced 3 mm thick images of the chest were obtained during administration o f approximately 150mL Isovue 370 IV contrast. Coronal and oblique MIP reconstruction images were gene rated and reviewed. Exam utilizes a protocol to evaluate the pulmonary arterial tree. All CT scans are performed using dose optimization technique as appropriate and may include automated exposure control or mA/KV adjustment according to patient size. FINDINGS: No pulmonary emboli are identified. The aorta as imaged shows no acute or suspicious finding. No pericardial thickening or effusion. No focal mass or consolidation. Interstitial markings are prominent which could be interstitial edema or interstitial infiltrate. Emphysema changes are present in the upper lobes. Small bilateral pleura l effusions are present. No pneumothorax. No pleural based mass. A few nonspecific mediastinal and hilar lymph nodes are present. No chest wall masses or abnormal axi llary lymphadenopathy. IMPRESSION: No pulmonary emboli identified. Small bilateral pleural effusions with prominent interstitial thickening. Interstitial pattern could be from edema or infiltrate.
--- NOTE | 2019-09-21 12:40 | P.CNS ---
Date of Consult: 09/21/19 Primary Care Provider: dr. Bowman, Cardiology Dr. Hoffman Chief Complaint: Respiratory failure History of Present Illness: Patient is 74 years of age with a history of hypertension AFib COPD admitted with shortness of breath nausea Dailey he has been unwell for the past month flores virus test is pending currently on BiPAP feeling weak may have a shortness of breath fever more likely sepsis with hypotension Allergies No Known Allergies Allergy (Verified 03/14/18 00:16) Home Medications: Fluticasone/Umeclidin/Vilanter [Trelegy Ellipta 100-62.5-25] 1 puff IH DAILY 04/06/19 Losartan Potassium [Cozaar] 1 tab PO DAILY 04/06/19 Apixaban [Eliquis] 1 tab PO DAILY 09/20/19 Furosemide [Lasix] 40 mg PO DAILY 09/20/19 Metoprolol Tartrate 1 tab PO BID 09/20/19 - Past Medical/Surgical History Diabetic: No -: Rheumatic fever -: Aortic ANeurysm -: HTN -: COPD -: Non Hodgkins Lymphoma -: Skin Cancer -: Atrial fibrillation on chronic anticoagulation therapy -: CHF -: Aortic Aneurysm Repair -: Hernia Repair Psychosocial/ Personal History: Patient lives at home with his in [facility] - Family History Mother Medical History: Diabetes Notes: Emphysema Father Notes: Anuerysm, head Sister Medical History: Cancer - Social History Smoking Status: Current every day smoker Alcohol use: Yes CD- Drugs: No Caffeine use: Yes Place of Residence: Home Review of Systems General: Weakness Respiratory: Shortness of Breath Physical Examination Temp Pulse Resp BP Pulse Ox 97.1 F 73 18 134/65 94 09/21/19 09:56 09/21/19 09:56 09/21/19 09:56 09/21/19 09:56 09/21/19 09:56 General: Other (Deferred patient is in isolation) Laboratory Data (last 24 hrs) 09/20/19 14:13: PT 22.4 H, INR 1.92, APTT 35.1 09/20/19 14:13: WBC 21.2 H*, Hgb 15.6, Hct 45.1, Plt Count 79 L 09/20/19 14:13: Sodium 137, Potassium 3.6, BUN 20 H, Creatinine 1.40 H, Glucose 132 H, Total Bilirubin 2.0 H, AST 25, ALT 32, Alkaline Phosphatase 106, Amylase 38, Lipase 155 - Problems (1) Septic shock Current Visit: Yes Status: Acute
--- NOTE | 2019-09-21 13:24 | CON ---
Date of Consultation: 09/21/2019 Chief Complaint: Shortness of breath and low energy. History Of Present Illness: This is a 74-year-old male with history of hypertension, atrial fibrilla tion, COPD, currently is a smoker, history of aortic aneurysm status post repair, non-Hodgkin lymphom a, presented to the emergency room with shortness of breath, nausea, fatigue, and some diarrhea. Den ies having cough. He had low-grade fever with no chest pain. He at one point was tachycardic and hy potensive with blood pressure of 77/52 with a low-grade fever of 100.6. Past Medical History: As outlined above in HPI. Medications: Refer to reconciliation sheet for detailed list. Allergies: NO KNOWN DRUG ALLERGIES. Social History: Smokes on daily basis. Does not drink, use any drugs. Family History: No premature coronary artery disease or cancer. Review of Systems: All systems reviewed and they were negative except for mentioned in the HPI. Physical Examination: Vital Signs: Temperature is 97.1, pulse 73, breathing 18, blood pressure is 134/65, saturating 95% o n room air. General: Pleasant elderly male, in no apparent distress. Head and Neck: Pupils are equal, react to light. Intact eye movements. No JVD. No cervical lympha denopathy. Neck: Supple. Thyroid is not enlarged. Lungs: There is rhonchi bilaterally with no accessory muscle use or muscle retraction. Heart: Irregular. No extra sounds. Abdomen: Soft, nontender. Bowel sounds positive. No organomegaly. No masses or hernia. No rigidi ty or rebound. Extremities: There is no edema, clubbing, cyanosis. Intact pulses. Skin: No rashes. Neurologic: Alert, awake, oriented x3. No acute focal deficits appreciated. Investigations: Creatinine 0.86, sodium 140. Troponin 0.1 down from 0.15. C-reactive protein is 18 7. Procalcitonin is 1.03. White blood cell count is 17.1, hemoglobin 13.7. Chest x-ray clear. Assessment And Recommendations: Elevated troponin that is trending down. This could be demand ische tonio from the infectious etiology that is going on. I would recommend a CT angiogram of the lungs to further evaluate and check COVID-19 status. Once the infection condition is stable, further coronary workup review to be warranted. At this point, I recommend to obtain a nuclear stress test and based on that, we will decide on further cardiac workup. I appreciate the courtesy of this consultation. JARRELL Voice ID: [id number] Report ID: [id number]
[2019-09-21] MEDS: VANCOMYCIN 1.5 GM in NA CHLORIDE 0.9% 500 ML IVPB SCH (13:51)
[2019-09-21] MEDS ORDERED: Levofloxacin 750mg IV 750 MG/150 ML BAG IV SCH (15:00)
[2019-09-21] MEDS ORDERED: VANCOMYCIN 1.5 GM in NA CHLORIDE 0.9% 500 ML IVPB SCH (19:00)
[2019-09-22] MEDS: NA CHLORIDE 0.9% 1,000 ML IV SCH ×4 (01:11→21:57)
[2019-09-22 04:46] LABS: Absolute Lymphocytes (CBC) 0.9 K/uL (0.7-4.9); Basophils % 0.1 % (0-1.3); Hematocrit 39.6 % (39.6-49.0); Lymphocytes % 4.5 % (15.3-44.8); MPV 10.8 fL (7.6-11.3); RBC Red Blood Cell Count 4.31 M/uL (4.33-5.43)
[2019-09-22 04:54] LABS: Potassium 4.5 mmol/L (3.5-5.1)
[2019-09-22] MEDS: DULERA 200/5 (MOMETASONE/FORMOTEROL) INHALER IH SCH ×2 (06:27→21:49)
[2019-09-22] MEDS: VANCOMYCIN 1.5 GM in NA CHLORIDE 0.9% 500 ML IVPB SCH ×2 (06:27→23:46)
[2019-09-22] MEDS: METHYLPREDNISOLONE 40 MG INJ IV SCH ×3 (06:27→22:00)
[2019-09-22] MEDS: METOPROLOL TAR 25 MG TAB PO SCH ×2 (07:38→17:11)
[2019-09-22] MEDS ORDERED: REGADENOSON 0.4 MG/5 ML SYR IV ONE (09:00)
[2019-09-22] MEDS: APIXABAN 5 MG TABLET PO SCH ×2 (09:47→21:49)
[2019-09-22] MEDS: LOSARTAN POTASSIUM 50 MG TABLET PO SCH (09:47)
[2019-09-22] MEDS: CEFEPIME/SWI 1gm 10 ML IV SCH ×2 (10:30→21:53)
--- NOTE | 2019-09-22 10:40 | RAD REPORT ---
EXAM DESCRIPTION: NM - Rest Stress Cardiac Imaging - 09/22/2019 9:54 am CLINICAL HISTORY: COPD, ELEVATED TROP Chest pain. COMPARISON: No comparisons TECHNIQUE: The patient was administered approximately 10mCi of Tc 99m Sestamibi prior to resting SPE CT imaging of the heart. The patient was then administered approximately 30 mCi of Tc 99m Sestamibi f ollowing exercise or pharmacologic stress. Multiplanar SPECT images were reviewed. FINDINGS: Focal defect is present along the left ventricular apex inferior the wall. This defect is seen on both rest and stress imaging. Left ventricular cavity appears enlarged although both rest an d stress. The end diastolic volume is 241 ml, the end systolic volume is 165 ml, and the ejection fraction is 3 5 %. IMPRESSION: No stress induced ischemia. 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 Enlarged left ventricular cavity is seen with reduced ejection fraction.
--- NOTE | 2019-09-22 11:18 | RAD REPORT ---
EXAM DESCRIPTION: RAD - Shoulder Right 2 View - 09/22/2019 10:09 am CLINICAL HISTORY: pain Pain and swelling COMPARISON: No comparisons FINDINGS: Mild AC joint degenerative changes are present. 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 No acute fra cture seen.
--- NOTE | 2019-09-22 12:23 | TREADPHA ---
DX: ELEVATED TROPONIN Date of Study: 09/22/2019 Ht: 5' 10 " Wt: 194 lb 3.2 oz Consulting Physician: ADELINE MEDICATIONS: TYLENOL, ELILQUIS, COZAAR, LOPRESSOR, ZOFRAN. HISTORY: 74 YEAR OLD MALE WITH COMPLAINTS OF CHEST PAIN. HISTORY- HYPERTENSION, ANEURYSM, COPD, NON HODGKINS LYMPHOMA, RHEUMATIC FEVER. SMOKER 1 PACK DAILY. DRINKER, CONGESTIVE HEART FAILURE, ATRIAL FIBRILLATION. PHYSICIAL EXAMINATION: RESTING B.P.: 146/97 RESTING H.R.: 89 RESTING EKG: ATRIAL FIBRILLATION PROTOCOL: LEXISCAN EXERCISE TIME: 3:30 B.P. AT PEAK STRESS: 149/73 IMPRESSION: LEXISCAN INJECTED, FOLLOWED BY CARDIOLITE PER PROTOCOL, SEE NUCLEAR MEDICINE REPORT. NO SUPRA VENTRICULAR TACHYCARDIA, VENTRICULAR TACHYCARDIA, PREMATURE ATRIAL COMPLEXES. PATIENT SHOWED FREQUENT PREMATURE VENTRICULAR COMPLEXES DURING PROCEDURE. PATIENT REPORTED 0/10 CHEST PAIN.
--- NOTE | 2019-09-22 13:15 | P.PN ---
Subjective Date of Service: 09/22/19 Primary Care Provider: dr. Bowman, Cardiology Dr. Hoffman Chief Complaint: Sepsis Subjective: No new changes Review of Systems 10-point ROS is otherwise unremarkable Physical Examination - Vital Signs Temperature: 97.6 F Blood Pressure: 145/80 Pulse: 68 Respirations: 16 Pulse Ox (%): 100 - Physical Exam General: Alert, In no apparent distress HEENT: Atraumatic, Normocephalic Neck: Supple Respiratory: Diminished Cardiovascular: No edema, Regular rate/rhythm, Normal S1 S2 Capillary refill: <2 Seconds Gastrointestinal: Soft and benign, W/out hepatosplenomegaly Musculoskeletal: No clubbing, No swelling Integumentary: No rashes, No tenderness/swelling Neurological: Other (Alert, Awake ) Lymphatics: No axilla or inguinal lymphadenopathy - Studies Microbiology Data (last 24 hrs): 09/20/19 14:25 Throat Culture & Sensitivity - Final NORMAL UPPER RESPIRATORY ISABELA GROWN. 09/20/19 14:26 Nasopharnyx Coronavirus COVID-19 PCR - Final Medications List Reviewed: Yes Assessment & Plan Physician Review Additional Text: Assessment Severe sepsis secondary to suspected bacterial pneumonia complicated by history of COPD Atrial fibrillation on chronic anticoagulation therapy Hypertension History of aortic aneurysm with repair Plan Severe sepsis secondary to suspected bacterial pneumonia complicated by history of COPD: Broad-spectrum antibiotics Cultures pending Preliminary cultures noted Continue antibiotics for now will change antibiotic as per the sensitivity DVT prophylaxis with Eliquis 5 mg p.o. b.i.d., patient's home medication. Continue to monitor patient closely. Elevated troponin likely secondary to Atrial fibrillation with rapid ventricular response on chronic anticoagulation therapy: Patient's rate is better controlled Appreciate Cardiology consult. Likely demand ischemia. Continue patient's Eliquis. Hypertension: Blood pressure medications in place with parameters. History of aortic aneurysm with repair: Stable at this time, patient without abdominal pain or back pain. Will continue to monitor closely. Time Spent Managing Pts Care (In Minutes): 42
--- NOTE | 2019-09-23 01:13 | PN ---
Date of Progress Note: 09/22/2019 Mr. Stark is a 74-year-old with history of hypertension, atrial fibrillation, COPD, history of abdom inal aortic aneurysm status post surgical repair, non-Hodgkin's lymphoma, who basically came into the hospital with shortness of breath, nausea, fatigue, and diarrhea. Had a low-grade temperature of 10 0.6. He was hypotensive. He had elevated troponin. He was seen by Dr. Gil yesterday, who recomm ended a nuclear stress test. A nuclear stress test was done today and it was normal without any evid ence of ischemia. The patient is presumed to have severe sepsis secondary to bacterial pneumonia and COPD. He is on broad-spectrum antibiotics. He is getting DVT prophylaxis, is on Eliquis 5 mg b.i.d . for his chronic atrial fibrillation. Blood pressure is stabilized. We will sign off his case for now. We will be available for the questions if the need arises. BURT/KAMERON Voice ID: [id number] Report ID: [id number]
[2019-09-23] MEDS ORDERED: ALBUTEROL 2.5 MG/3 ML NEB SOL NEB PRN (03:07)
[2019-09-23] MEDS ORDERED: FUROSEMIDE 40 MG/4 ML VIAL IV ONE (03:07)
[2019-09-23] MEDS ORDERED: IPRATROPIUM BROM 0.5MG/2.5ML NEB ONE (03:07)
[2019-09-23] MEDS ORDERED: IPRATROPIUM BROM 0.5MG/2.5ML NEB PRN (03:07)
[2019-09-23] MEDS ORDERED: ALBUTEROL 2.5 MG/3 ML NEB SOL NEB ONE (03:07)
--- NOTE | 2019-09-23 03:12 | P.PN ---
Date of Service: 09/23/19 Patient short of breath and wheezing. Will do a stat chest x-ray. Most likely congestive heart failure as patient's the ejection fraction is less than 40%. Get an echocardiogram in the morning we will diurese patient as well. Patient also with history of COPD and will give patient albuterol and Atrovent. Hep- Lock IV as well.
[2019-09-23] MEDS: METHYLPREDNISOLONE 40 MG INJ IV SCH (05:38)
[2019-09-23] MEDS: METOPROLOL TAR 25 MG TAB PO SCH (05:41)
[2019-09-23 05:53] LABS: Absolute Lymphocytes (CBC) 0.7 K/uL (0.7-4.9); Basophils % 0.1 % (0-1.3); Hematocrit 41.2 % (39.6-49.0); Lymphocytes % 4.4 % (15.3-44.8); MPV 11.2 fL (7.6-11.3); RBC Red Blood Cell Count 4.49 M/uL (4.33-5.43)
[2019-09-23 06:11] LABS: Potassium 3.9 mmol/L (3.5-5.1)
[2019-09-23] MEDS: DULERA 200/5 (MOMETASONE/FORMOTEROL) INHALER IH SCH (08:00)
--- NOTE | 2019-09-23 08:22 | RAD REPORT ---
EXAM DESCRIPTION: RAD - Chest Single View - 09/23/2019 3:51 am CLINICAL HISTORY: dyspnea; CHF Chest pain. COMPARISON: Chest Single View dated 09/20/2019; Chest Pa And Lat (2 Views) dated 04/07/2019; Chest Sin gle View dated 04/06/2019; Chest Single View dated 08/29/2018 FINDINGS: Portable technique limits examination quality. Moderate airspace infiltrate is present in the right lung base associated with a small pleural effusi on, most compatible with pneumonia. The heart is moderately enlarged in size. No displaced fractures. IMPRESSION: Right lower lobe pneumonia.
[2019-09-23] MEDS ORDERED: POTASSIUM CL SA 10 MEQ TAB PO ONE (09:00)
[2019-09-23] MEDS: APIXABAN 5 MG TABLET PO SCH (09:03)
[2019-09-23] MEDS: LOSARTAN POTASSIUM 50 MG TABLET PO SCH (09:03)
[2019-09-23] MEDS: CEFEPIME/SWI 1gm 10 ML IV SCH (09:04)
[2019-09-23 09:13] LABS: Platelet Estimate DECR; Urine White Blood Cell Casts OK
[2019-09-23 09:14] LABS: Blood Morphology Comment NOT SEEN (NOT SEEN)
[2019-09-23 10:08] VITALS: O2SAT 99
[2019-09-23 11:22] VITALS: BP 156/88; TEMP 97.4
--- NOTE | 2019-09-23 11:30 | P.DS ---
Admission Date: 09/20/19 Discharge Date: 09/24/19 Primary Care Provider: dr. Bowman, Cardiology Dr. Hoffman Disposition: ROUTINE DISCHARGE Discharge Condition: FAIR Reason for Admission: Sepsis Brief History of Present Illness: 74-year-old male with history of hypertension, atrial fibrillation, COPD, presents emergency department with a chief complaint of shortness of breath, nausea, diarrhea. Patient reports that he has been feeling unwell for approximately 1 month has gotten worse recently. Patient reports he has been feeling very weak as well. The patient presented because of his worsening shortness of breath. During his evaluation in the emergency department patient was found to have elevated white blood cell count at 21, elevated lactate at 2.9, temperature 100.6, heart rate of around 120, and had multiple readings of hypotension as low as 77/52. Patient had chest x-ray that showed small pleural effusion noted acute findings. Patient denies any abdominal pain. ED provider wishes to admit patient for further evaluation and management. When I saw the patient in the emergency department he was in no distress although he was hypotensive and tachycardic. Patient is fighting for sepsis. Patient did receive sepsis fluids in the emergency department. Due to multiple readings of hypotension in the emergency department with aggressive hydration will admit patient to the intensive care unit for overnight monitoring. Hospital Course: Severe sepsis secondary to suspected bacterial pneumonia complicated by history of COPD Atrial fibrillation on chronic anticoagulation therapy Hypertension History of aortic aneurysm with repair Plan Severe sepsis secondary to suspected bacterial pneumonia complicated by history of COPD: Broad-spectrum antibiotics Cultures pending Preliminary cultures noted Continue antibiotics for now will change antibiotic as per the sensitivity DVT prophylaxis with Eliquis 5 mg p.o. b.i.d., patient's home medication. Continue to monitor patient closely. Elevated troponin likely secondary to Atrial fibrillation with rapid ventricular response on chronic anticoagulation therapy: Patient's rate is better controlled Appreciate Cardiology consult. Likely demand ischemia. Continue patient's Eliquis. Hypertension: Blood pressure medications in place with parameters. History of aortic aneurysm with repair: Stable at this time, patient without abdominal pain or back pain. Will continue to monitor closely. Patient's blood culture was positive for Streptococcus might use and the antibiotics were changed Patient wanted go home and is being discharged home today in a stable condition with advice to follow up with PCP in 1 week and Cardiology in 1-2 weeks Vital Signs/Physical Exam: Temp Pulse Resp BP Pulse Ox 97.4 F 71 20 156/88 H 95 09/23/19 08:00 09/23/19 08:00 09/23/19 08:00 09/23/19 08:00 09/23/19 08:00 General: Alert, In no apparent distress HEENT: Atraumatic, Normocephalic Neck: Supple Respiratory: Clear to auscultation bilaterally Cardiovascular: Regular rate/rhythm, Normal S1 S2 Capillary refill: <2 Seconds Gastrointestinal: Soft and benign Musculoskeletal: No clubbing Integumentary: No rashes Neurological: Other (Alert , Awake ) Laboratory Data at Discharge: WBC 15.0 K/uL (4.3-10.9) H D 09/23/19 05:15 Hgb 14.3 g/dL (13.6-17.9) 09/23/19 05:15 Hct 41.2 % (39.6-49.0) 09/23/19 05:15 Plt Count 76 K/uL (152-406) L 09/23/19 05:15 PT 22.4 SECONDS (9.5-12.5) H 09/20/19 14:13 INR 1.92 09/20/19 14:13 APTT 35.1 SECONDS (24.3-36.9) 09/20/19 14:13 Sodium 142 mmol/L (136-145) 09/23/19 05:15 Potassium 3.9 mmol/L (3.5-5.1) 09/23/19 05:15 BUN 33 mg/dL (7-18) H 09/23/19 05:15 Creatinine 1.12 mg/dL (0.55-1.3) 09/23/19 05:15 Glucose 148 mg/dL (74-106) H 09/23/19 05:15 Magnesium 2.1 mg/dL (1.8-2.4) 09/21/19 06:21 Total Bilirubin 2.0 mg/dL (0.2-1.0) H 09/20/19 14:13 AST 25 U/L (15-37) 09/20/19 14:13 ALT 32 U/L (12-78) 09/20/19 14:13 Alkaline Phosphatase 106 U/L (45-117) 09/20/19 14:13 Troponin I 0.10 ng/mL (0.0-0.045) H 09/21/19 06:21 Amylase 38 U/L (25-115) 09/20/19 14:13 Lipase 155 U/L (73-393) 09/20/19 14:13 Home Medications: Fluticasone/Umeclidin/Vilanter [Trelegy Ellipta 100-62.5-25] 1 puff IH DAILY 04/06/19 Losartan Potassium [Cozaar] 1 tab PO DAILY 04/06/19 Apixaban [Eliquis] 1 tab PO DAILY 09/20/19 Metoprolol Tartrate 1 tab PO BID 09/20/19 Albuterol Neb [Proventil 0.083% Neb Soln] 2.5 mg NEB [id number] PRN #20 amp 09/23/19 Furosemide [Lasix] 40 mg PO BID #60 tablet 09/23/19 Ipratropium Neb [Atrovent*] 0.5 mg NEB [id number] PRN #20 amp 09/23/19 Levofloxacin [Levaquin] 500 mg PO DAILY #10 tablet 09/23/19 Methylprednisolone [Medrol dosepack] 4 mg PO DIRECTED #1 bijal 09/23/19 Mometasone/Formoterol [Dulera 200 Mcg/5 Mcg Inhaler] 2 puff IH BIDRESP #1 inhaler 09/23/19 New Medications: Ipratropium Neb [Atrovent*] 0.5 mg NEB [id number] PRN #20 amp PRN Reason: Shortness Of Breath Mometasone/Formoterol [Dulera 200 Mcg/5 Mcg Inhaler] 2 puff IH BIDRESP #1 inhaler Furosemide [Lasix] 40 mg PO BID #60 tablet Levofloxacin [Levaquin] 500 mg PO DAILY #10 tablet Methylprednisolone [Medrol dosepack] 4 mg PO DIRECTED #1 bijal Albuterol Neb [Proventil 0.083% Neb Soln] 2.5 mg NEB [id number] PRN #20 amp PRN Reason: Shortness Of Breath Followup: Juan Hoffman MD [ACTIVE - CAN ADMIT] - Time spent managing pt's care (in minutes): 42
[2019-09-24] MEDS ORDERED: VANCOMYCIN 1.5 GM in NA CHLORIDE 0.9% 500 ML IVPB SCH ×2
== END 2019-09-23 13:00 | disposition home or self-care (01) | DRG 871 ==
LOC: ER 13:48 → ERHOLD 16:02 → 4TH 19:54 → 2ND 09-22 00:14
PROVIDERS: ADMIT Internal Medicine Sleep Medicine; ATTEND Family Medicine
PROC: 8E0ZXY6 Isolation (ICD-10-PCS; principal; 2019-09-20)
DX: A41.9 Sepsis, unspecified organism (principal); I50.23 Acute on chronic systolic (congestive) heart failure; J15.9 Unspecified bacterial pneumonia; J44.0 Chronic obstructive pulmonary disease with (acute) lower respiratory infection; I48.20 Chronic atrial fibrillation, unspecified; F17.210 Nicotine dependence, cigarettes, uncomplicated; B95.5 Unspecified streptococcus as the cause of diseases classified elsewhere; I24.8 Other forms of acute ischemic heart disease; F17.200 Nicotine dependence, unspecified, uncomplicated; I11.0 Hypertensive heart disease with heart failure; R65.20 Severe sepsis without septic shock; Z85.828 Personal history of other malignant neoplasm of skin; Z79.01 Long term (current) use of anticoagulants; Z79.899 Other long term (current) drug therapy; Z20.828 Contact with and (suspected) exposure to other viral communicable diseases; R06.02 Shortness of breath; R05 Cough
CPT/HCPCS: 36415; 71045; 71275; 78452; 80048; 80076; 80202; 81003; 81015; 82150; 82550; 82553; 82728; 82947; 83605; 83690; 83735; 84145; 84484; 85025; 85610; 85730; 86140; 87040; 87070; 87077; 87081; 87186; 87205; 87804; 93005; 93017; 96374; 96375; 99285; A9500; J0692; J1100; J1940; J2785; J2920; J3370; J7030; J7040; J7606; Q9967; U0002

== ENCOUNTER 2020-04-05 07:47 | Day surgery (SDC) | payer OTHER, SELFPAY ==
--- NOTE | 2020-04-04 11:07 | RAD REPORT ---
EXAM DESCRIPTION: RAD - Chest Pa And Lat (2 Views) - 04/04/2020 10:21 am CLINICAL HISTORY: preop Chest pain. COMPARISON: Chest Single View dated 09/23/2019; Chest Single View dated 09/20/2019; Chest Pa And Lat ( 2 Views) dated 04/07/2019; Chest Single View dated 04/06/2019; Abdomen Pelvis W Contrast dated 021; Ct Skull/Thigh dated 03/24/2020 FINDINGS: The lungs are emphysematous but clear. The heart is mildly enlarged with a tortuous thorac ic aorta. No displaced fractures. Small hiatal hernia. IMPRESSION: Mild diffuse COPD.
[2020-04-05] MEDS ORDERED: Ringers Lactate 1,000 ML IV ONE ×2 (08:14→11:06)
[2020-04-05] MEDS ORDERED: propofoL 200 MG/20 ML VIAL IV ONE (09:33)
[2020-04-05] MEDS ORDERED: dexAMETHasone 10 MG/ML VIAL ONE (09:34)
[2020-04-05] MEDS ORDERED: MIDAZOLAM HCL 2 MG/2 ML INJ ONE (09:34)
[2020-04-05] MEDS ORDERED: FENTANYL CITR 100 MCG/2 ML ONE (09:34)
[2020-04-05] MEDS ORDERED: LIDOCAINE 1% MPF 5 ML VIAL ONE (09:34)
[2020-04-05] MEDS: CEFAZOLIN/SWI 1gm 1 GM/10 ML SYR ONE ×2 (09:44→09:55)
[2020-04-05] MEDS ORDERED: KETOROLAC 30 MG/ML INJ ONE (10:59)
[2020-04-05 11:13] VITALS: TEMP 97.3
[2020-04-05] MEDS ORDERED: HYDROCODONE/APAP 7.5/325 MG TAB ONE (12:03)
--- NOTE | 2020-04-05 12:20 | OP ---
Date of Procedure: 04/05/2020 Surgeon: Stefan Cedillo MD Placement Coordinator: PADMINI Adams. Preoperative Diagnoses: Right arm mass, left groin mass, and history of lymphoma. Postoperative Diagnoses: Right arm mass, left groin mass, and history of lymphoma. Procedure Performed: Wide excision, right arm mass 6 x 3 cm with layered closure and incisional biop sy of left groin mass. Estimated Blood Loss: Minimal. 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 Findings: As above. Anesthesia: General. Complications: None. Disposition: The patient tolerated the procedure in stable condition and taken to Recovery in good g eneral condition. Procedure In Detail: The patient was brought to the OR and placed in supine position. General anest hesia begun. The patient was prepped and draped in the usual sterile fashion. Marcaine 0.5% was inf iltrated locally. A 15 blade was used to make a 6 x 3 cm incision over this 2.5 cm raised mass in th e posterior arm. Subcutaneous tissue divided. Entire mass excised and sent to Pathology. Frozen se ction revealed other well-differentiated squamous cell carcinoma or an actinic keratosis. Therefore, wound irrigated, bleeding controlled with cautery, and the margins were free. Flaps created and 2-0 chromic used to approximate subcutaneous tissue and 4-0 nylon used to close the skin. Sterile dress ing applied and then the left groin 4 cm incision made over the palpable mass just above the inguinal crease lateral to the inguinal incision. The patient had hernia repair. Subcutaneous tissue divide d and deep to the subcutaneous tissue, a large lymph node identified and suture biopsy of approximate ly 2 x 1 cm was done with sharp dissection and sent to Pathology. Confirmation obtained that it was indeed lymph node. Wound irrigated. Bleeding controlled with cautery. Surgicel placed and bleeding controlled and then 3-0 chromic used to approximate the subcutaneous tissue and close the skin. Latrell rile dressing was applied. The patient was awakened and taken to Recovery in good general condition. Discharge Note: The patient will go Day Surgery and home when stable. Disposition: Home. Condition: Stable. Discharge Instructions: Resume home medications and diet. Activity as tolerated. No heavy lifting. Keep dressing clean and dry. Sponge bathe only. Follow up in my office in a week. Call for appoi ntment. Tylenol No. 3 one tablet p.o. q.4 p.r.n. pain, Keflex 500 mg p.o. q.8. /MODL Voice ID: [id number] Report ID: [id number]
[2020-04-05 13:21] VITALS: BP 133/82; O2SAT 95
--- OUTSIDE RECORDS SUMMARY | 2020-04-06 03:00 | XMS REPORT | Continuity of Care Document ---
:1945 Author Organization [facility] t Address [address] [place] [address] [address]. [address] [place] [address] Care Team Providers Name Role Phone Gracie Mesa MD Primary Care Physician Rashmi ACUNA Attending Clinician Unavailable Rashmi ACUNA Admitting Clinician Unavailable Payers Payer Name Policy Type Policy Effective Date Expiration Date Sour ce Number [employer]IG[employer] [id number] 2016 [facility] 00:00:00 - [facility] [id number] esentMaps Contracted Problems Condition Condition Condition Status Onset Resolution Last Treating Co mments Source Name Details Category Date Date Treatment Clinician Date ALIZE (acute ALIZE (acute Disease Active [place] kidney kidney 07-17 [facility] injury) injury) 00:00: st 00 Abdominal Abdominal Disease Active [place] [facility] aneurysm aneurysm 07-16 Method i 00:00: st 00 S/P S/P Disease Active [place] abdominal abdominal 07-16 Meth eduard aortic aortic 00:00: st aneurysm aneurysm 00 repair repair Lethargy Lethargy Disease Active [place] 07-16 Methodi 00:00: st 00 Anemia due Anemia due Disease Active [place] to blood to blood 07-16 Method i loss loss 00:00: st 00 Thrombocyt Thrombocyt Disease Active [place] openia openia 07-16 Methodi 00:00: st 00 Mild Mild Disease Active [place] Hypercapni Hypercapni 07-16 Me thodi a a 00:00: st 00 Oliguria Oliguria Disease Active [place] 07-16 Methodi 00:00: st 00 Pre-proced Pre-proced Disease Active Overview : [place] ural ural 5-10 Added [facility] cardiovasc cardiovasc 00:00: automatic st ular ular 00 ally from examinatio examinatio request n n for surgery [id number] Abdominal Abdominal Disease Active [place] [facility] aortic aortic 5-04 [facility] aneurysm aneurysm 00:00: st (AAA) (AAA) 00 without without rupture rupture Tobacco Tobacco Disease Active [place] dependence dependence 5-04 Me thodi 00:00: st 00 Essential Essential Disease Active [place] [facility] hypertensi hypertensi 5-04 Me thodi on on 00:00: st 00 Abnormal Abnormal Disease Active [place] stress ECG stress ECG 5-04 Me thodi with with 00:00: st treadmill treadmill 00 Allergies, Adverse Reactions, Alerts This patient has no known allergies or adverse reactions. Social History Social Habit Start Date Stop Date Quantity Comments Source Sex Assigned At [facility] ethodi Cigarettes smoked 2016-07-24 2016-07-24 [place] [facility] current (pack per 00:00:00 00:00:00 day) - Reported Cigarette 2016-07-24 2016-07-24 [place] Method ist pack-years 00:00:00 00:00:00 Tobacco use and 2016-07-24 2016-07-24 Never used [facility] ethodist exposure 00:00:00 00:00:00 Alcohol intake 2016-07-24 2016-07-24 Current drinker [place] [facility] 00:00:00 00:00:00 of alcohol (finding) History of tobacco 2016-07-16 [facility]00 [facility] Alcohol Comment 2016-07-11 2016-07-11 12-16 /every 1 [place] [facility] 00:00:00 00:00:00 1/2 weeks Tobacco Comment 2016-07-11 2016-07-11 40 years [facility] ethodist 00:00:00 00:00:00 Smoking Status Start Date Stop Date Source Former smoker 2016-08-31 00:00:00 2016-08-31 00:00:00 EK[facility] Current every day 2016-07-24 00:00:00 [facility] Medications Ordered Filled Start Stop Current Ordering Indication Dosage Frequency Signature Comments Components Source Medication Medication Date Date Medication? Clinician (SIG) Name Name atorvastati Yes 20mg QD Take [address] [facility] (LIPITOR) 08-30 by mouth [facility] - 20 MG 10:32: daily. Medical tablet 03 Center amLODIPine Yes 5mg QD Take [address] (NORVASC) 5 7-06 by mouth [facility] - MG tablet 10:32: daily. Medica l 03 Center aspirin 81 Yes 81mg QD Take [address] [facility] EC 7 by [facility] - tablet 10:32: daily. Medical 03 Center metoprolol Yes 25mg Q.5D Take [address] (LOPRESSOR) 08-30 by mouth 2 Natacha kes - 25 MG 10:32: (two) Medical tablet 03 times Center daily. Procedures Procedure Date / Time Performed Performing Clinician [facility] e SARS-COV2/RT-PCR ([facility] 2019-09-20 14:26:00 [facility] Plan of Care Planned Activity Planned Date Details Comments Source Future Scheduled 2019-09-26 INFLUENZA VACCINE [place] [facility] Test 00:00:00 [code = INFLUENZA VACCINE] Future Scheduled 2008-01-27 65+ PNEUMOCOCCAL [place] [facility] Test 00:00:00 VACCINE (1 of 1 - PPSV23) [code = 65+ PNEUMOCOCCAL VACCINE (1 of 1 - PPSV23)] Future Scheduled 1993 SHINGLES VACCINES (#1) [place] [facility] Test 00:00:00 [code = SHINGLES VACCINES (#1)] Future Scheduled 1959 COVID-19 VACCINE (1 of [place] [facility] Test 00:00:00 2) [code = COVID-19 VACCINE (1 of 2)] Results Test Description Test Time Test Comments Results Result Comments Source SARS-CoV2/RT-PCR ([facility] & Ref Labs) 2019-09-21 09:54:00 Test Item Value Reference Range Interpretation Comme nts SARS-COV2/RT-PCR (test code = Negative Not Detected, 82479-6) Negative, See external report for linked test SARS-COV-2 PERFORMING LAB [facility] (test code = 55754-9) BRIGETTE (test code = BRIGETTE) Negative result for this test determines that SARS-CoV-2 RNA was not present in the specimen above the Limit of Detection (LOD). However, Negative results do not preclude SARS-CoV-2 infection and should not be used as the sole basis for treatment or patient management decisions. Negative results must be combined with clinical observations, patient history, and epidemiological information. A false negative result may occur if a specimen is improperly collected, transported or handled. A false negative result should be considered if patient's recent exposures or clinical presentation indicate that COVID-19 (SARS-CoV-2) is likely and diagnostic tests for other causes of illness are negative. Re-testing should be considered in cases of suspected false negatives. The limit of detection for this assay is 800 copies/mL. This SARS CoV-2 test is a real-time RT-PCR test intended for the qualitative detection of nucleic acid from SARS-CoV-2 in a nasopharyngeal swab specimen collected from individuals suspected of COVID-19 by their healthcare provider. This test has not been Food and Drug Administration (FDA) cleared or approved. This is a modified version of an approved Emergency Use Authorization (EUA) and is in the process of review by the FDA. Once authorized by the FDA, the issued EUA will be effective until the declaration that circumstances exist justifying the authorization of the emergency use of in vitro diagnostic tests for detection and/or diagnosis of COVID-19 is terminated under Section 564(b)(2) of the Act or the EUA is revoked under Section 564(g) of the Act. Fact Sheet for Healthcare Providers:https://www.[employer]. com/sites/default/files/produ ct/documents/Fact_Sheet_HC_Pr hgeiwnv_Ynih_EXWT-OpG-5.pdf Fact Sheet for Healthcare Patients:https://www.[employer].c om/sites/default/files/produc t/documents/Fact_Sheet_Patien pa_Aqbz_HNTM-WoD-5.pdf Performing Laboratory:[facility] [place] [address] [facility] REF [facility])2019-09-21 09:54:00 Test Item Value Reference Range Interpretation Comments SARS-COV2/RT-PCR (test Negative Not Detected, Negative, code = 7478150) See external report for linked test SARS-COV-2 PERFORMING LAB [facility] (test code = 5989980) Negative result for this test determines that SARS-CoV-2 RNA was not present in the specimen above the Limit of Detection (LOD). However, Negative results do not preclude SARS-CoV-2 infection and should not be used as the sole basis for treatment or patient management decisions. Negative results mustbe combined with clinical observations, patient history, and epidemiological information. A false negative result may occur if a specimen is improperly collected, transported or handled. A false negative result should be considered if patient's recent exposures or clinical presentation indicate that COVID-19 (SARS-CoV-2) is likely and diagnostic tests for other causes of illness are negative. Re-testing should be considered in cases of suspected false negatives.The limit of detection for this assay is 800 copies/mL.This SARS CoV-2 test is a real-time RT-PCR test intended for the qualitative detection of nucleic acid from SARS-CoV-2 in a nasopharyngeal swab specimen collected from individuals susp ected of COVID-19 by their healthcare provider.This test has not been Food and Drug Administration (FDA) cleared or approved. This is a modified version of an approved Emergency Use Authorization (EUA) and is in the process of review by the FDA. Once authorized by the FDA, the issued EUA will be effective until the declaration that circumstances exist justifying the authorization of the emergency use of in vitro diagnostic tests for detection and/or diagnosis of COVID-19 is terminated under Section 564(b)(2) of the Act or the EUA is revoked under Section 564(g) of the Act.Fact Sheet for Healthcare Providers:https://www.[employer].com/sites/default/files/product/documents/Fact_Shee f_GY_Bofmyzibu_Hgvo_MXRA-WeT-7.pdfFact Sheet for Healthcare Patients:https://www.[employer].com/sites/default/files/product/ documents/Xmfl_Jcnrq_Renglzlm_Asbc_LMVI-UxE-0.pdfPerforming Laboratory:[facility], [place] [address]IDMXXU [id number] 15:59:00Surgical Pathology Report Case: [id number] Authorizing Provider: Clinton Acuna MD Collected: 08/30/2016 0909 Ordering Location: [facility] Endoscopy Received: 08/30/2016 1532 Services Pathologist: Feroz Xiao MD Specimens: A) - Polyp, Colon - Sigmoid, sigmoid polyp B) -Rectum, rectal polyp A. 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 RECTAL POLYP, BIOPSY- FRAGMENTS OF TUBULOVILLOUS ADENOMA- NO DYSPLASIA SEEN AT CAUTERIZED RESECTION MARGIN- NO HIGH-GRADE DYSPLASIA AND NO MALIGNANCY IDENTIFIED [id number] x 2Rectal massA. Sigmoid colo n polypB. Rectal polypSpecimen is received in two [...] The lamina propria has mildly increased acute andchronic inflammation. No dysplasia is seen at cauterized resection margin. High-grade dysplasia and malignancy are not seen.
--- OUTSIDE RECORDS SUMMARY | 2020-04-06 03:00 | XMS REPORT | Clinical Summary ---
:1945 [facility] Address [address] [place] [id number] Care Team Providers Name Role Phone Kevin Bowman MD Primary Care Provider Allergies No [...] mouth daily. Active Problems Not on file Encounters Date Type Specialty Care Team Description 09/20/2019 Lab Requisition Lab after 04/05/2019 Social History Tobacco Use Types Packs/Day Years Used Date Former Smoker Quit: 07/17/19 17 Smokeless Tobacco: Never Used Tobacco Cessation: Counseling Given: Yes Alcohol Use Drinks/Week oz/Week Comments No Sex Assigned at Date Recorded Not on file Last Filed Vital Signs Not on file Plan of Treatment Not on file Procedures Procedure Name Priority Date/Time Associated Diagnosis Comme nts SARS-COV2/RT-PCR Routine 09/20/2019 2:26 PM Resu lts for this ([facility] REF [facility]) CDT procedure are in the results section. after 04/05/2019 Results SARS-CoV2/RT-PCR ([facility]) (09/20/2019 2:26 PM CDT) SARS-COV2/RT-PCR Negative Not Detected, [facility], See [facility] external report CENTER for linked test SARS-COV-2 [facility] PERFORMING LAB [facility] Specimen Other - Nasopharyngeal wall structure (b ivania structure) Narrative Performed At Negative result for this test determines that [facility] SARS-CoV-2 RNA was not present in the [...] of the Act. Fact Sheet for Healthcare Providers: https://www.[employer].com/sites/default/files/pro duct/documents/Fact_Sheet_HC_Providers_Lyra_SA RS-CoV-2.pdf Fact Sheet for Healthcare Patients: https://www.[employer].com/sites/default/files/pro duct/documents/Fact_Sheet_Patients_Lyra_SARS-C oV-2.pdf Performing Laboratory: [address] [place] [address] Performing Organization Address City/State/Zipcode Phone Number [address] [address] CENTER after 04/05/2019 Insurance Payer Benefit Plan / Subscriber ID Effective Phone Address T ype Group Dates [employer]IGWESLEY [employer]AVES [id number] 2016-Pre [facility] ALL sent Contracted ([address]) [address] [place] [id number]
--- OUTSIDE RECORDS SUMMARY | 2020-04-06 03:00 | XMS REPORT | Clinical Summary ---
:1945 Author Organization [facility] Address [address] [place] [id number] Care Team Providers Name Role Phone Gracie Mesa MD Primary Care Provider Allergies No Known Active Allergies Medications No known medications Active Problems Problem Noted Date ALIZE (acute kidney injury) 07/17/2016 Abdominal aneurysm 07/16/2016 S/P abdominal aortic aneurysm repair 07/16/2016 Lethargy 07/16/2016 Anemia due to blood loss 07/16/2016 Thrombocytopenia 07/16/2016 Mild Hypercapnia 07/16/2016 Oliguria 07/16/2016 Pre-procedural cardiovascular examination 07/04/2016 Overview: Added automatically from request for es wetzel [id number] Abdominal aortic aneurysm (AAA) without rupture 2016 Tobacco dependence 06/28/2016 Essential hypertension 06/28/2016 Abnormal stress ECG with treadmill 06/28/2016 Surgical History Surgery Date Site/Laterality Comments SHOULDER SURGERY tumor removed on L shoulder INGUINAL HERNIA REPAIR L side CORONARY ANGIOPLASTY no stents 0 07/11/16 COLONOSCOPY 06/11 CARDIAC CATHETERIZATION 07/11/2016 N/A Procedur e: Cv selective coronary angiogr aphy; Surgeon: Avi Giron MD; [facility]; Service: Cardiov ascular; Laterality: N/A; REPAIR, ANEURYSM, ABDOMINAL AORTA 07/16/2016 Abdomen/N/A Procedure: Repair, Aneurysm, Abdomi nal Aorta using 24 Fr Dalton shield [place] graft.; Surgeon: Dwaine yadav MD; Location: [facility] OR; Service: Cardiot horacic; Laterality: N/A; Medical devices from this surgery are in t he Implants section . CARDIAC ELECTROPHYSIOLOGY 07/20/2016 N/A Proced ure: Ep PROCEDURE cardioversion; Surgeon: Raj Vargas i, MD; Location: [facility] Lab Invasive Locatio n; Service: Cardiov ascular; Laterality: N/A; Medical History Medical History Date Comments Hypertension SOB (shortness of breath) on exertion Snoring Bronchitis 02/2016. completed a ntibiotic treatment. Wears dentures UPPER AND LOWER Anesthesia NHAP/NFHAP AAA (abdominal aortic aneurysm) (HCC) ALIZE (acute kidney injury) (HCC) 07/17/2016 Social History Tobacco Use Types Packs/Day Years Used Date Current Every Day Smoker Cigarettes 2 43 Smokeless Tobacco: Never Used Comments: 40 years Alcohol Use Drinks/Week oz/Week Comments Yes 12-16 /every 1 1 /2 weeks Sex Assigned at Date Recorded Not on file Last Filed Vital Signs Not on file Plan of Treatment Health Maintenance Due Date Last Done Comments COVID-19 VACCINE (1 of 2) 1959 SHINGLES VACCINES (#1) 1993 65+ PNEUMOCOCCAL VACCINE (1 of 1 - PPSV23) 01/27/2008 INFLUENZA VACCINE 09/26/2019 Implants Implanted Type Area Vice President Network Development Device Shelf Model / Identifier Expiration Serial / Lot Date [facility] Vasclr Ptfe [id number] 1.65mm - [id number] Vascular N/A: N/A BARD [id number] / Implanted: 07/16/2016 at [facility] (Quantity not on file) Graft PERIPHERAL / VASCULAR Graft Vasclr [place] Thor 2velr Woven 30cm 24mm - [id number] Vascular N/A: Aorta, [facility] 03/27/2021 [id number] / Implanted: 07/16/2016 at [facility] (Quantity not on file) Gra ft Abdominal СВЕТЛАНА [id number] / [id number] Results Not on fileafter 04/05/2019 Insurance Payer Benefit Plan / Subscriber ID Effective Dates Phone Addre ss Type Group [employer] [id number] 2016-Prese O O MCR ADV nt Advance Directives For more information, please contact: [phone] Type Date Recorded Patient Supervisor Cook Room Explanati on Advance Directives, Living Will 07/11/2016 10:01 AM and Medical Power of Credit Risk Specialist
== END 2020-04-05 12:29 | disposition home or self-care (01) ==
LOC: OR 07:47
PROVIDERS: ATTEND Surgery
PROC: 0JBD0ZZ Excision of Right Upper Arm Subcutaneous Tissue and Fascia, Open Approach (ICD-10-PCS; principal; 2020-04-05 09:30)
PROC: 0JBC0ZX Excision of Pelvic Region Subcutaneous Tissue and Fascia, Open Approach, Diagnostic (ICD-10-PCS; 2020-04-05 09:30)
DX: C44.622 Squamous cell carcinoma of skin of right upper limb, including shoulder (principal); C83.35 Diffuse large B-cell lymphoma, lymph nodes of inguinal region and lower limb; R22.31 Localized swelling, mass and lump, right upper limb; R22.2 Localized swelling, mass and lump, trunk; Z20.822 Contact with and (suspected) exposure to COVID-19
CPT/HCPCS: 71046; 88305; 88331; 88332; J0690; J1100; J2250; J2704; J3010; J7120; U0002

== ENCOUNTER 2020-08-18 09:04 | Observation (INO) | payer OTHER ==
--- OUTSIDE RECORDS SUMMARY | 2020-08-18 09:08 | XMS REPORT | Continuity of Care Document ---
:1945 Author Organization [facility] t Address [address] [place] [address] [address] [place] [address] Care Team Providers Name Role Phone Kevin Bowman MD Primary Care Physician Rashmi ACUNA Attending Clinician Unavailable Rashmi ACUNA Admitting Clinician Unavailable Payers Payer Name Policy Type Policy Effective Date Expiration Date Sour ce Number CIGNA [id number] 2016 [facility] 00:00:00 - [facility] [id number] 2016-Pr esentMaps Contracted Problems Condition Condition Condition Status Onset Resolution Last Treating Co mments Source Name Details Category Date Date Treatment Clinician Date ALIZE (acute ALIZE ([facility] injury) injury) 00:00: st 00 Abdominal Abdominal Disease Active [place] [facility] aneurysm aneurysm 07-16 Method i 00:00: st 00 S/P S/P Disease Active [place] abdominal abdominal 07-16 Meth eduard aortic aortic 00:00: st aneurysm aneurysm 00 repair repair Lethargy Lethargy Disease Active [place] 07-16 Methodi 00:00: st 00 Anemia due Anemia due Disease Active [place] to blood to blood 07-16 Method i loss loss 00:00: st 00 Thrombocyt Thrombocyt Disease Active [place] openia openia 07-16 Methodi 00:00: st 00 Mild Mild Disease Active [place] Hypercapni Hypercapni 07-16 Me thodi a a 00:00: st 00 Oliguria Oliguria Disease Active [place] 07-16 Methodi 00:00: st 00 Pre-proced Pre-proced Disease Active Overview : [place] ural ural 5-10 Formattin [facility]i cardiovasc cardiovasc 00:00: g of this st ular ular 00 note examinatio examinatio might be n n different from the original. 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 Social History Social Habit Start Date Stop Date Quantity Comments Source Cigarettes smoked 2016-07-24 2016-07-24 [place] Baptism current (pack per 00:00:00 00:00:00 day) - Reported Cigarette 2016-07-24 2016-07-24 [place] Method ist pack-years 00:00:00 00:00:00 Tobacco use and 2016-07-24 2016-07-24 Never used [facility]ine G[facility]mez ethodist exposure 00:00:00 00:00:00 Alcohol intake 2016-07-24 2016-07-24 Current drinker [place] [facility] 00:00:00 00:00:00 of alcohol (finding) History of tobacco 2016-07-16 [facility] sm[facility] use [facility]00 [facility] Alcohol Comment 2016-07-11 2016-07-11 12-16 /every 1 [place] [facility] 00:00:00 00:00:00 1/2 weeks Tobacco Comment 2016-07-11 2016-07-11 40 years [place] ethodist 00:00:00 00:00:00 Sex Assigned At [birth year] [facility] ethodist 00:00:00 00:00:00 Smoking Status Start Date Stop Date Source Former smoker 2016-08-31 00:00:00 2016-08-31 00:00:00 EKATERINA [facility] Current every day 2016-07-24 00:00:00 [facility] smoker Medications Ordered Filled Start Stop Current Ordering Indication Dosage Frequency Signature Comments Components Source Medication Medication Date Date Medication? Clinician (SIG) Name Name atorconchataabhilash Yes 20mg QD Take [address] [facility] (LIPITOR) 7-06 by mouth Luke s - 20 MG 10:32: daily. Medical tablet 03 Center amLODIPine Yes 5mg QD Take [address] [facility] (NORVASC) 5 7 by mouth Luke s - MG tablet 10:32: daily. Medica l 03 Center aspirin 81 Yes 81mg QD Take [address] [facility] EC 08-30 [facility] - tablet 10:32: daily. Medical 03 Center metoprolol Yes 25mg Q.5D Take [address] (LOPRESSOR) 08-30 by mouth 2 Natacha kes - 25 MG 10:32: (two) Medical tablet 03 times Center daily. Procedures Procedure Date / Time Performed Performing Clinician Sourc e SARS-COV2/RT-PCR ([facility] 2019-09-20 14:26:00 [facility] Plan of Care Planned Activity Planned Date Details Comments Source Future Scheduled 2020-09-25 INFLUENZA VACCINE [place] [facility] Test 00:00:00 [code = INFLUENZA VACCINE] Future Scheduled 2008-01-27 65+ PNEUMOCOCCAL [place] [facility] Test 00:00:00 VACCINE (1 of 1 - PPSV23) [code = 65+ PNEUMOCOCCAL VACCINE (1 of 1 - PPSV23)] Future Scheduled 1993 SHINGLES VACCINES (#1) [facility] Test 00:00:00 [code = SHINGLES VACCINES (#1)] Future Scheduled 1955 COVID-19 VACCINE (1) [facility] Test 00:00:00 [code = COVID-19 VACCINE (1)] Encounters Start End Encounter Admission Attending Care Care Encounter Source Date/Time Date/Time Type Type Clinicians Facility Department ID 2020-04-28 2020-04-28 Outpatient [id number] [facility] 11:29:00 11:29:00 Results Test Description Test Time Test Comments Results Result Comments Source SARS-CoV2/RT-PCR ([facility] & Ref Labs) 2019-09-21 09:54:00 Test Item Value Reference Range Interpretation Comme nts SARS-COV2/RT-PCR (test code = Negative Not Detected, 47604-6) Negative, See external report for linked test SARS-COV-2 PERFORMING LAB [facility] (test code = 58327-9) BRIGETTE (test code = BRIGETTE) Negative result [...] of the Act. Fact Sheet for Healthcare Providers:https://www.[employer]. [facility]/sites/default/files/produ ct/documents/Fact_Sheet_HC_Pr ebjnwvu_Pdat_AQVA-MvI-3.pdf Fact Sheet for Healthcare Patients:https://www.TempMine.[employer]/sites/default/files/produc t/documents/Fact_Sheet_Patien qg_Yryy_TWNQ-RbN-3.pdf Performing Laboratory:[facility] [place] [address] [facility])2019-09-21 09:54:00 Test Item Value Reference Range Interpretation Comments SARS-COV2/RT-PCR (test Negative Not Detected, Negative, code = 2518674) See external report for linked test SARS-COV-2 PERFORMING LAB [facility] (test code = 2534122) Negative result for this test determines that [...] 564(g) of the Act.Fact Sheet for Healthcare Providers:https://www.TempMine.com/sites/default/files/product/documents/Fact_Shee h_YW_Vlayejimu_Dtrj_TFCK-GgP-8.pdfFact Sheet for Healthcare Patients:https://www.TempMine.com/sites/default/files/product/ documents/Zhuk_Zeera_Onhdnnnk_Ouue_WLEL-XbA-4.pdfPerforming Laboratory:[facility], [place] [address]NBACXC [id number] 15:59:00Surgical Pathology Report Case: [id number] Authorizing Provider: Clinton Acuna MD Collected: 08/30/2016 0909 Ordering Location: [facility] Endoscopy Received: 08/30/2016 1532 Services Pathologist: Feroz [...] NO HIGH-GRADE DYSPLASIA AND NO MALIGNANCY IDENTIFIED 36443 x 2Rectal massA. Sigmoid colo n polypB. [...]
[2020-08-18] MEDS ORDERED: LEVALBUTEROL 1.25 MG/3 ML NEB ONE (10:18)
[2020-08-18] MEDS ORDERED: METHYLPREDNISOLONE 125 MG INJ ONE (10:18)
[2020-08-18 10:29] LABS: Absolute Lymphocytes (CBC) 1.5 K/uL (0.7-4.9); Basophils % 0.3 % (0-1.3); Hematocrit 33.2 % (39.6-49.0); Lymphocytes % 11.3 % (15.3-44.8); MPV 12.4 fL (7.6-11.3); RBC Red Blood Cell Count 3.29 M/uL (4.33-5.43)
[2020-08-18 10:52] LABS: Albumin 3.2 g/dL (3.4-5.0); Bilirubin Total 0.8 mg/dL (0.2-1.0); Potassium 3.6 mmol/L (3.5-5.1); Protein, Total 5.7 g/dL (6.4-8.2)
--- NOTE | 2020-08-18 10:52 | RAD REPORT ---
EXAM DESCRIPTION: RAD - Chest Single View - 08/18/2020 10:35 am CLINICAL HISTORY: breathing diff Chest pain. COMPARISON: Chest Pa And Lat (2 Views) dated 06/23/2020; Chest Pa And Lat (2 Views) dated 04/04/2020; C hest Single View dated 09/23/2019; Chest Single View dated 09/20/2019 FINDINGS: Portable technique limits examination quality. The lungs are mildly emphysematous. Hazy opacities in both lung bases are noted suggesting mild infil trate/ pneumonia. Small bilateral pleural effusions are also likely present. The heart is upper limit normal in size.
--- NOTE | 2020-08-18 12:30 | ER ---
Nurse's Notes [facility] Name: Abraham Stark Age: 75 yrs Sex: Male : 1945 Arrival Date: 08/18/2020 Time: 09:13 Bed 5 Private MD: Nimesh Bowman E Diagnosis: Pneumonia;COPD/ Chronic obstructive pulmonary disease with (acute) exacerbation Presentation: 08/18 09:32 Chief complaint: Patient states: "I think I having a COPD flair up. I am short of jd3 breath and I feel like I take a deep breath and i does not go anywhere.". Coronavirus screen: At this time, the client does not indicate any symptoms associated with coronavirus-19. Ebola Screen: Patient negative for fever greater than or equal to 101.5 degrees Fahrenheit, and additional compatible Ebola Virus Disease symptoms. Initial Sepsis Screen: Does the patient meet any 2 criteria? No. Patient's initial sepsis screen is negative. Does the patient have a suspected source of infection? No. Patient's initial sepsis screen is negative. Risk Assessment: Do you want to hurt yourself or someone else? Patient reports no desire to harm self or others. Onset of symptoms was August 12, 2020. 09:32 Method Of Arrival: Wheelchair jd3 09:32 Acuity: KIERSTEN 3 jd3 Historical: - Allergies: 09:36 No Known Allergies; jd3 - Home Meds: 09:36 Prednisone Oral [Active]; Allopurinol Oral [Active]; losartan oral oral [Active]; jd3 Metoprolol Tartrate Oral [Active]; Furosemide Oral [Active]; Eliquis oral oral [Active]; albuterol sulfate Oral [Active]; - PMHx: 09:36 Aneurysm; COPD; NonHodgkin's Lymphoma; Hypertension; RHEUMATIC FEVER; jd3 - Immunization history:: Adult Immunizations up to date, Client reports receiving the 1st dose of the Covid vaccine. - Social history:: Smoking status: Patient reports the use of cigarette tobacco products, smokes one pack cigarettes per day. Screenin:05 Abuse screen: Denies threats or abuse. Denies injuries from another. Nutritional hb screening: No deficits noted. Tuberculosis screening: No symptoms or risk factors identified. Fall Risk None identified. Assessment: 10:00 General: Appears in no apparent distress. Behavior is calm, cooperative. Pain: Denies hb pain. Neuro: Level of Consciousness is awake, alert, obeys commands, Oriented to person, place, time, situation. Cardiovascular: Patient's skin is warm and dry. Rhythm is regular. Respiratory: Reports shortness of breath Airway is patent Respiratory effort is even, unlabored, Respiratory pattern is regular, symmetrical. GI: No signs and/or symptoms were reported involving the gastrointestinal system. : No signs and/or symptoms were reported regarding the genitourinary system. EENT: No signs and/or symptoms were reported regarding the EENT system. Derm: Skin is pink, warm \\T\\ dry. Musculoskeletal: No signs and/or symptoms reported regarding the musculoskeletal system. 11:00 Reassessment: Patient appears in no apparent distress at this time. Patient and/or hb family updated on plan of care and expected duration. Pain level reassessed. Patient is alert, oriented x 3, equal unlabored respirations, skin warm/dry/pink. 11:54 Reassessment: Patient appears in no apparent distress at this time. Patient and/or hb family updated on plan of care and expected duration. Pain level reassessed. Patient is alert, oriented x 3, equal unlabored respirations, skin warm/dry/pink. 15:00 Reassessment: Report given to JODY Washington. Vital Signs: 09:36 BP 127 / 85; Pulse 99; Resp 20 S; Temp 97.2(TE); Pulse Ox 100% on R/A; Weight 88.45 kg jd3 (R); Height 5 ft. 9 in. (175.26 cm) (R); Pain 2/10; 10:05 BP 113 / 79; Pulse 101; Resp 14; Pulse Ox 100% on Nebulizer Mask; hb 11:21 BP 136 / 66; Pulse 128; Resp 19; Pulse Ox 98% ; sv 11:54 BP 144 / 82; Pulse 116; Resp 18; Pulse Ox 94% ; hb 15:00 BP 132 / 91; Pulse 121; Resp 19; Pulse Ox 98% on R/A; Pain 0/10; ss 09:36 Body Mass Index 28.80 (88.45 kg, 175.26 cm) jd3 ED Course: 09:13 Patient arrived in ED. mr 09:13 Nimesh Bowman MD is Private Physician. mr 09:33 Triage completed. jd3 09:37 Arm band placed on. jd3 09:38 Jevon Santizo PA is PHCP. jmm 09:38 Suhail Yates MD is Attending Physician. jmm 10:02 Inserted saline lock: 20 gauge in right antecubital area, using aseptic technique. hb ,using aseptic technique. by KJ Blood collected. 10:05 Patient has correct armband on for positive identification. Bed in low position. Call hb light in reach. Side rails up X 1. color television console monitor on. Pulse ox on. NIBP on. 10:06 Orquidea Graves, RN is Primary Nurse. hb 10:48 Chest Single View In Process Unspecified. EDMS 10:53 Chest Single View In Process Unspecified. EDMS 12:29 Mk Copeland MD is Hospitalizing Provider. [facility] 15:00 No provider procedures requiring assistance completed. EKG done, by ED staff. Patient ss admitted, IV remains in place. Administered Medications: No medications were administered Outcome: 12:30 Decision to Hospitalize by Provider. [facility] 15:00 Admitted to Tele accompanied by tech, via wheelchair, room 204, with chart, Report ss called to JODY Washington 15:00 Condition: stable 15:00 Instructed on the need for admit. 15:05 Patient left the ED. eb Signatures: Dispatcher [employer] Aline Bro, Jevon Dixon RN, PA PA jmm Rivera, Mary mr BarnesAdriana RN RN ss Baxter, Heather, RN RN hb Davies, Jonathon, RN RN jd3 Botello, Elizabeth eb
--- NOTE | 2020-08-18 12:30 | EDPHYS ---
Physician Documentation [facility] Name: Abraham Stark Age: 75 yrs Sex: Male : 1945 Arrival Date: 08/18/2020 Time: 09:13 Bed 5 Private MD: Nimesh Bowman E ED Physician Suhail Yates HPI: 08/18 10:18 This 75 yrs old Male presents to ER via Wheelchair with complaints of jmm Breathing Difficulty. 10:18 The patient has shortness of breath at rest. Onset: The symptoms/episode began/occurred jmm gradually. The patient's shortness of breath is aggravated by coughing, is alleviated by nothing. Associated signs and symptoms: Pertinent positives: non-productive cough, Pertinent negatives: fever. This is a 75 year old male with a history of copd, nonhodgekins lymphoma, HTN that presents to the ED with complaints of cough. shortness of breath, fatigue. Complains of epigastric pain with cough. . Historical: - Allergies: 09:36 No Known Allergies; jd3 - Home Meds: 09:36 Prednisone Oral [Active]; Allopurinol Oral [Active]; losartan oral oral [Active]; jd3 Metoprolol Tartrate Oral [Active]; Furosemide Oral [Active]; Eliquis oral oral [Active]; albuterol sulfate Oral [Active]; - PMHx: 09:36 Aneurysm; COPD; NonHodgkin's Lymphoma; Hypertension; RHEUMATIC FEVER; jd3 - Immunization history:: Adult Immunizations up to date, Client reports receiving the 1st dose of the Covid vaccine. - Social history:: Smoking status: Patient reports the use of cigarette tobacco products, smokes one pack cigarettes per day. ROS: 10:18 Cardiovascular: Negative for chest pain, palpitations, and edema. jmm 10:18 Constitutional: Positive for chills, fatigue. 10:18 Respiratory: Positive for cough. 10:18 All other systems are negative. Exam: 10:18 Head/Face: atraumatic. ENT: Moist Mucus Membranes Neck: Trachea midline, Supple jmm Chest/axilla: Normal chest wall appearance and motion. Cardiovascular: Regular rate and rhythm. No edema appreciated Respiratory: Normal respirations, no respiratory distress appreciated Abdomen/GI: Non distended, soft Back: Normal ROM Skin: General appearance color normal Neuro: Awake and alert, normal gait Psych: Behavior is normal, Mood is normal, Patient is cooperative and pleasant 10:18 Constitutional: The patient appears alert, awake. 10:18 Musculoskeletal/extremity: pitting edema noted to the left lower extremity. Vital Signs: 09:36 BP 127 / 85; Pulse 99; Resp 20 S; Temp 97.2(TE); Pulse Ox 100% on R/A; Weight 88.45 kg jd3 (R); Height 5 ft. 9 in. (175.26 cm) (R); Pain 2/10; 10:05 BP 113 / 79; Pulse 101; Resp 14; Pulse Ox 100% on Nebulizer Mask; hb 11:21 BP 136 / 66; Pulse 128; Resp 19; Pulse Ox 98% ; sv 11:54 BP 144 / 82; Pulse 116; Resp 18; Pulse Ox 94% ; hb 15:00 BP 132 / 91; Pulse 121; Resp 19; Pulse Ox 98% on R/A; Pain 0/10; ss 09:36 Body Mass Index 28.80 (88.45 kg, 175.26 cm) jd3 MDM: 10:06 Patient medically screened. [facility] 12:28 Data reviewed: vital signs, nurses notes. Counseling: I had a detailed discussion with navya the patient and/or guardian regarding: the historical points, exam findings, and any diagnostic results supporting the discharge/admit diagnosis, lab results, radiology results, the need for further work-up and treatment in the hospital. ED course: I discussed the patient with Dr. Copeland whom accepted the patient for admission. . 08/18 10:34 Order name: Lactate; Complete Time: 10:45 EDNY 08/18 10:37 Order name: CBC with Automated Diff; Complete Time: 13:30 EDNY 08/18 10:48 Order name: Comprehensive Metabolic Panel; Complete Time: 11:01 EDNY 08/18 10:48 Order name: Procalcitonin EDNY 08/18 10:48 Order name: Blood Culture EDNY 08/18 10:53 Order name: Troponin I; Complete Time: 13:30 EDNY 08/18 10:48 Order name: EKG Electrocardiogram EDNY 08/18 10:48 Order name: Chest Single View EDNY 08/18 10:53 Order name: Lipase; Complete Time: 13:30 EDNY 08/18 13:02 Order name: Thorax Wo Con; Complete Time: 14:42 EDNY 08/18 13:20 Order name: Manual Differential; Complete Time: 13:30 EDNY 08/18 13:42 Order name: SARS-COV-2 RT PCR; Complete Time: 14:42 EDNY Administered Medications: No medications were administered Disposition: 08/18/20 12:30 Hospitalization ordered by Mk Copeland for Observation. Diagnosis are Pneumonia, COPD/ Chronic obstructive pulmonary disease with (acute) exacerbation. - Bed requested for Telemetry/MedSurg (observation). - Status is Observation. eb - Condition is Stable. - Problem is new. - Symptoms are unchanged. Addendum: 08/24/2020 20:04 Co-signature as Attending Physician, Suhail Yates MD. m a2 Signatures: Dispatcher [employer] [facility] Jevon Santizo PA PA Arjun Cervantes, RN RN jd3 Suhail Yates MD MD il2 Anna Mane Corrections: (The following items were deleted from the chart) 08/18 12:48 12:35 CORONAVIRUS ordered. [facility] 14:35 12:30 Hospitalization Ordered by Mk Copeland MD for Observation. Preliminary eb diagnosis is Pneumonia; Chronic obstructive pulmonary disease with (acute) exacerbation. Bed requested for Telemetry/MedSurg (observation). Status is Observation. Condition is Stable. Problem is new. Symptoms are unchanged. [facility] 15:05 14:35 08/18/2020 12:30 Hospitalization Ordered by Mk Copeland MD for Observation. eb Preliminary diagnosis is Pneumonia; Chronic obstructive pulmonary disease with (acute) exacerbation. Bed requested for Telemetry/MedSurg (observation). Status is Observation. Condition is Stable. Problem is new. Symptoms are unchanged. eb
[2020-08-18] MEDS ORDERED: METOPROLOL TARTRATE 5 MG/5 ML INJ IV STA (13:02)
[2020-08-18] MEDS ORDERED: FUROSEMIDE 40 MG/4 ML VIAL IV ONE (13:02)
--- NOTE | 2020-08-18 13:05 | P.HP ---
Certification for Inpatient Patient admitted to: Inpatient With expected LOS: >2 Midnights Practitioner: I am a practitioner with admitting privileges, knowledge of patient current condition, hospital course, and medical plan of care. Services: Services provided to patient in accordance with Admission requirements found in Title 42 Section 412.3 of the Code of Federal Regulations Patient History Date of Service: 08/18/20 Reason for admission: acute CHf exacerbation, acute COPD History of Present Illness: 75yo M, PMH: HTN, COPD, non-hodgkin's lymphoma on chemo, Afib on eliquis Presents to ED due to 1 week of progressively worsening shortness of breath, associated with wheeze, dyspnea on exertion, worsening b/l lower extremity edema, sputum production, and generalized fatigue/weakness. He reports swelling has actually been worsening over ~1 month slowly. He last had chemo ~1 week ago. Receiving treatment [id number], completed 5 of 6 treatments. Denies any chest pain, no n/v/d, no new numbness/tingling. Has been taking home meds as prescribed. Nebulizer at home not helping much. Has not been getting much sleep either. In the ED, patient was noted to be dyspneic, weak, tachycardic to 120s and tachypneic. CXR concerning for possible pneumonia. WBC: 13.3, Plt: 53, Procal: 0.25, lactate: 1.5. afebrile. ED provider wishes to admit patient for further management. Allergies No Known Allergies Allergy (Verified 04/04/20 09:57) Home Medications: Fluticasone/Umeclidin/Vilanter [Trelegy Ellipta 100-62.5-25] 1 puff IH DAILY 04/06/19 Losartan Potassium [Cozaar] 1 tab PO DAILY 04/06/19 Apixaban [Eliquis] 1 tab PO DAILY 09/20/19 Metoprolol Tartrate 1 tab PO BID 09/20/19 Albuterol Neb [Proventil 0.083% Neb Soln] 2.5 mg NEB [id number] PRN #20 amp 09/23/19 Furosemide [Lasix] 40 mg PO BID #60 tablet 09/23/19 - Past Medical/Surgical History Diabetic: No -: Rheumatic fever -: Aortic ANeurysm -: HTN -: COPD -: Non Hodgkins Lymphoma -: Skin Cancer -: Atrial fibrillation on chronic anticoagulation therapy -: CHF -: Aortic Aneurysm Repair -: Hernia Repair Psychosocial/ Personal History: Patient lives at home with his in [place] - Family History Mother Notes: Emphysema Father Notes: Anuerysm, head Sister -: Cancer - Social History Smoking Status: Current every day smoker (>50pk/yr) Alcohol use: Yes CD- Drugs: No Caffeine use: Yes Place of Residence: Home Review of Systems 10-point ROS is otherwise unremarkable Physical Examination - Physical Exam General: Alert, Oriented x3, Mild distress HEENT: EOMI, Sclerae nonicteric Neck: Supple Respiratory: Diminished (bilaterally), Crackles/rales (at bases bilaterally), Expiratory wheezes Cardiovascular: No murmurs, Edema (2+ bilateral to thighs), Irregular heart rate/rhythm Capillary refill: <2 Seconds Gastrointestinal: Soft and benign, Non-distended, No tenderness Musculoskeletal: No erythema, No tenderness Integumentary: No rashes, No breakdown Neurological: Normal speech, Normal strength at 5/5 x4 extr, Normal affect - Studies Laboratory Data (last 24 hrs) 08/18/20 10:02: Sodium 143, Potassium 3.6, BUN 22 H, Creatinine 0.92, Glucose 83, Total Bilirubin 0.8, AST 16, ALT 46, Alkaline Phosphatase 126 H, Lipase Cancelled 08/18/20 10:02: WBC 13.30 H, Hgb 10.6 L, Hct 33.2 L, Plt Count 53 L Assessment and Plan - Advance Directives Does patient have a Living Will: No Does patient have a Durable POA for Healthcare: No Physician Review Additional Text: Problem List acute on chronic systolic CHF exacerbation acute on chronic COPD exacerbation Chronic AFib on eliquis, with RVR HTN non-hodgkin's lymphoma receiving chemo h/o rheumatic fever -admit to med/surg, w/ telemetry -pt with 2+ pitting edema to b/l thighs on exam -IV lasix 40mg BID for now, monitor I/O, vitals -telemetry, trend trop -CXR with possible pneumonia as well, pt without fever, chronic leukocytosis, mildly elevated procal, rocephin/azithro given in ED -IV lopressor 5mg now for afib, continue home metoprolol -continue home eliquis -confirm/restart home meds as appropriate -will obtain CT chest for further evaluation -last echo done 04/2020 - poor images, but mildly depressed EF noted VTE: eliquis Code: DNR Dispo: anticipate dc home in ~2-3 days Time Spent Managing Pts Care (In Minutes): 65
[2020-08-18 13:25] LABS: Toxic Granulation PRESENT
[2020-08-18 13:26] LABS: Anisocytosis 1+; Blood Morphology Comment NOTED (NOT SEEN); Dohle Bodies PRESENT; Platelet Estimate DECR; Polychromasia 1+
[2020-08-18 13:29] LABS: Troponin I 0.029 ng/mL
--- NOTE | 2020-08-18 13:59 | RAD REPORT ---
EXAM DESCRIPTION: CT - Thorax Wo Con - 08/18/2020 1:39 pm CLINICAL HISTORY: SOB, eval pneumonia/effusions COMPARISON: Chest Angio dated 09/21/2019; Chest Single View dated 08/18/2020 TECHNIQUE: Axial 5 mm thick images of the chest were obtained without IV contrast. All CT scans are performed using dose optimization technique as appropriate and may include automated exposure control or mA/KV adjustment according to patient size. FINDINGS: Lung miller are emphysematous not substantially different from comparison. No peripheral m ass or consolidation. No interstitial edema identifiable. Small bilateral pleural effusions are prese nt similar or only fractionally increased from 1 year earlier. No pneumothorax. No abnormal mediastinal or hilar masses or lymphadenopathy seen. A few small nonspecific mediastinal lymph nodes are present similar to comparison. No progressive process seen. Heart size is upper jordi l. No pericardial effusion. No chest wall mass or abnormal axillary lymphadenopathy. IMPRESSION: Small bilateral pleural effusions similar or fractionally increased from August 2019. Lung parenchymal emphysema changes with no mass, infiltrate or interstitial edema pattern.
[2020-08-18] MEDS ORDERED: ONDANSETRON 4 MG/2 ML VIAL IV PRN (15:13)
[2020-08-18] MEDS: IPRATROPIUM BROM 0.5MG/2.5ML NEB SCH ×2 (16:04→20:20)
[2020-08-18] MEDS: LEVALBUTEROL 0.63 MG/3 ML NEB NEB SCH ×2 (16:04→20:20)
[2020-08-18 16:23] VITALS: O2SAT 98; BMI 28.8
[2020-08-18] MEDS: FUROSEMIDE 40 MG/4 ML VIAL IV SCH (16:49)
[2020-08-18 17:30] LABS: Thyroid Stimulating Hormone 0.886 uIU/mL (0.360-3.740)
[2020-08-18 17:32] LABS: Troponin I 0.02 ng/mL (0.0-0.045)
[2020-08-18] MEDS: METOPROLOL TAR 50 MG TAB PO SCH (18:00)
[2020-08-18] MEDS: predniSONE 20 MG TAB PO SCH (21:00)
[2020-08-18] MEDS ORDERED: LORazepam 2 MG/ML VIAL IV ONE (21:18)
[2020-08-19] MEDS: LEVALBUTEROL 0.63 MG/3 ML NEB NEB SCH ×3 (01:44→13:55)
[2020-08-19] MEDS: IPRATROPIUM BROM 0.5MG/2.5ML NEB SCH ×3 (01:44→13:55)
[2020-08-19 05:48] VITALS: TEMP 97.8
[2020-08-19] MEDS: METOPROLOL TAR 50 MG TAB PO SCH ×2 (06:18→17:09)
--- NOTE | 2020-08-19 08:11 | EKG ---
Test Date: 2020-08-18 Test Time: 14:54:14 Media Senior Recruiter: BRAD MEASUREMENT RESULTS: Intervals: Rate: 129 HI: QRSD: 102 QT: 346 QTc: 506 [place]: P: HI: QRS: 29 T: 163 INTERPRETIVE STATEMENTS: Atrial fibrillation with rapid ventricular response with premature ventricular or aberrantly conducted complexes ST & T wave abnormality, consider lateral ischemia Abnormal ECG Compared to ECG 09/20/2019 14:36:35 Possible ischemia now present Prolonged QT interval no longer present ST (T wave) deviation still present Electronically Signed On 08-19-20 08:09:38 CDT by Juan Hoffman
[2020-08-19 08:32] LABS: Basophils % 0.2 % (0-1.3); Hematocrit 30.6 % (39.6-49.0); Lymphocytes % 3.7 % (15.3-44.8); MPV 11.3 fL (7.6-11.3); RBC Red Blood Cell Count 3.04 M/uL (4.33-5.43)
[2020-08-19] MEDS ORDERED: CEFTRIAXONE/SWI 1gm 1 GM/10 ML SYR IVP SCH (09:00)
[2020-08-19] MEDS ORDERED: AZITHROMYCIN IV 500 MG in NA CHLORIDE 0.9% 250 ML IVPB SCH (09:00)
[2020-08-19 09:25] LABS: Urine Appearance CLEAR (Clear); Urine Bilirubin NEGATIVE (Negative); Urine Blood NEGATIVE (Negative); Urine Color DK YELLOW (Yellow); Urine Glucose TRACE (Negative); Urine Protein TRACE (Negative); Urine Specific Gravity 1.025 (1.005-1.030)
[2020-08-19 09:26] LABS: Urine Microscopic Reflex ORDER UMIC
[2020-08-19] MEDS: FUROSEMIDE 40 MG/4 ML VIAL IV SCH ×2 (09:43→17:09)
[2020-08-19] MEDS: predniSONE 20 MG TAB PO SCH (09:44)
[2020-08-19 09:50] LABS: Urine RBC <5 /HPF (NONE SEEN)
[2020-08-19 09:51] LABS: Urine Bacteria NONE SEEN /HPF (NONE SEEN)
[2020-08-19] MEDS ORDERED: NA CHLORIDE 0.9% 50 ML ONE (10:09)
[2020-08-19 10:49] LABS: Absolute Lymphocytes (CBC) 1.4 K/uL (0.7-4.9); Basophils % 0.3 % (0-1.3); Hematocrit 32.1 % (39.6-49.0); Lymphocytes % 4.8 % (15.3-44.8); MPV 11.8 fL (7.6-11.3); RBC Red Blood Cell Count 3.16 M/uL (4.33-5.43)
[2020-08-19 11:30] LABS: Albumin 3.1 g/dL (3.4-5.0); Bilirubin Total 0.6 mg/dL (0.2-1.0); Magnesium 2.2 mg/dL (1.8-2.4); Potassium 3.7 mmol/L (3.5-5.1); Protein, Total 5.7 g/dL (6.4-8.2)
[2020-08-19 12:55] LABS: Anisocytosis 1+; Blood Morphology Comment NOTED (NOT SEEN); Platelet Estimate DECR
--- NOTE | 2020-08-19 15:49 | P.CNS ---
Date of Consult: 08/19/20 Reason for Consult: Shortness of breath Chief Complaint: acute CHf exacerbation, acute COPD History of Present Illness: Patient is 75 years of age with a history of COPD as been complaining of progressive dyspnea for the past 3 weeks history of congestive heart failure COPD is compliant with his therapy undergoing chemotherapy for non-Hodgkin's lymphoma involving a he is growing an in his neck for Kadeem as some radiation treatment a he is feeling much better since he got some diuretic denies any fever or chills is white count is mildly elevated may have been from the steroids he feels well above to go home than take any diuretics at home BNP was also elevated probably has underlying diastolic dysfunction Allergies No Known Allergies Allergy (Verified 04/04/20 09:57) Home Medications: Fluticasone/Umeclidin/Vilanter [Trelegy Ellipta 100-62.5-25] 1 puff IH DAILY 04/06/19 Losartan Potassium [Cozaar] 50 mg PO DAILY 04/06/19 Apixaban [Eliquis] 5 mg PO DAILY 09/20/19 Metoprolol Tartrate 100 mg PO DAILY 09/20/19 Albuterol Neb [Proventil 0.083% Neb Soln] 2.5 mg NEB [id number] PRN #20 amp 09/23/19 Allopurinol 300 mg PO DAILY 08/18/20 Furosemide [Lasix] 40 mg PO DAILY 08/18/20 predniSONE [Deltasone*] 100 mg PO SEECOM 08/18/20 - Past Medical/Surgical History Diabetic: No -: Rheumatic fever -: Aortic ANeurysm -: HTN -: COPD -: Non Hodgkins Lymphoma -: Skin Cancer -: Atrial fibrillation on chronic anticoagulation therapy -: CHF -: Aortic Aneurysm Repair -: Hernia Repair Psychosocial/ Personal History: Patient lives at home with his in [facility] - Family History Mother Notes: Emphysema Father Notes: Anuerysm, head Sister Medical History: Cancer - Social History Smoking Status: Current every day smoker Alcohol use: Yes CD- Drugs: No Caffeine use: Yes Place of Residence: Home Review of Systems 10-point ROS is otherwise unremarkable Physical Examination Temp Pulse Resp BP Pulse Ox 97.8 F 84 18 119/77 96 08/19/20 12:00 08/19/20 12:00 08/19/20 12:00 08/19/20 12:00 08/19/20 12:00 General: Alert, In no apparent distress, Oriented x3 Neck: Supple Respiratory: Clear to auscultation bilaterally Cardiovascular: No edema Gastrointestinal: Normal bowel sounds, Soft and benign - Problems (1) Diastolic heart failure Current Visit: Yes Status: Acute Plan: Patient is 75 years of age admitted with chronic dyspnea he feels much better probably has underlying diastolic dysfunction as per echo done in May 15 this year he NPO was also elevated apply and with his trilogy at home the is small pleural effusions on CT scan white count is elevated was normal on admission I suspect from the large dose of steroid that he got in the emergency room vital signs otherwise satisfactory CT scan and chest x-ray reviewed I think he will benefit from low-dose spironolactone 25 mg a day plan for discharge resume his trilogy Qualifiers: Heart failure chronicity: acute on chronic Qualified Code(s): I50.33 - Acute on chronic diastolic (congestive) heart failure
--- NOTE | 2020-08-19 16:08 | P.DS ---
Admission Date: 08/18/20 Discharge Date: 08/19/20 Disposition: ROUTINE DISCHARGE Discharge Condition: GOOD Reason for Admission: acute CHf exacerbation, acute COPD Consultations: Pulm - Dr. Burgess Procedures: CXR (08/18): The lungs are mildly emphysematous. Hazy opacities in both lung bases are noted suggesting mild infiltrate/ pneumonia. Small bilateral pleural effusions are also likely present. The heart is upper limit normal in size. CT Chest (08/18): FINDINGS: Lung miller are emphysematous not substantially different from comparison. No peripheral mass or consolidation. No interstitial edema identifiable. Small bilateral pleural effusions are present similar or only fractionally increased from 1 year earlier. No pneumothorax. No abnormal mediastinal or hilar masses or lymphadenopathy seen. A few small nonspecific mediastinal lymph nodes are present similar to comparison. No progressive process seen. Heart size is upper normal. No pericardial effusion. No chest wall mass or abnormal axillary lymphadenopathy. IMPRESSION: Small bilateral pleural effusions similar or fractionally increased from August 2019. Lung parenchymal emphysema changes with no mass, infiltrate or interstitial edema pattern. Problem List acute on chronic systolic CHF exacerbation acute on chronic COPD exacerbation Chronic AFib on eliquis, with RVR HTN non-hodgkin's lymphoma receiving chemo h/o rheumatic fever Brief History of Present Illness: 75yo M, PMH: HTN, COPD, non-hodgkin's lymphoma on chemo, Afib on eliquis Presents to ED due to 1 week of progressively worsening shortness of breath, associated with wheeze, dyspnea on exertion, worsening b/l lower extremity edema, sputum production, and generalized fatigue/weakness. He reports swelling has actually been worsening over ~1 month slowly. He last had chemo ~1 week ago. Receiving treatment [id number], completed 5 of 6 treatments. Denies any chest pain, no n/v/d, no new numbness/tingling. Has been taking home meds as prescribed. Nebulizer at home not helping much. Has not been getting much sleep either. In the ED, patient was noted to be dyspneic, weak, tachycardic to 120s and tachypneic. CXR concerning for possible pneumonia. WBC: 13.3, Plt: 53, Procal: 0.25, lactate: 1.5. afebrile. ED provider wishes to admit patient for further management. Hospital Course: CT chest obtained for further evaluation, revealed b/l pleural effusiions, emphysematous changes with no mass/infiltrate or interstitial edema pattern. He was initially empirically treated with rocephin/azithro for possible pneumonia. He was given IV lasix 40mg BID and diuresed well. On day of discharge his swelling significantly improved, he was breathing much more comfortably on room air, had mild expiratory wheeze, and heart rate was much better controlled. His WBC did significantly increase to 28k from 13k. Procal: 0.1. Pulmonology was consulted and felt this was likely due to the high dose steroids he received in the ED. Patient did not appear septic. Recommended addition of 25mg daily spironolactone to his current regimen. Patient's BP was noted to be WNL and did not receive his losartan. This was held on discharge. Advised to check BP at home and take readings to PCP. Possibly to restart pending his BP readings as he would benefit from ACEI/ARB given CHF history. Discharged with 3 more days of prednisone 20mg BID to complete 4 days total. Vital Signs/Physical Exam: Temp Pulse Resp BP Pulse Ox 97.8 F 84 18 119/77 96 08/19/20 12:00 08/19/20 12:00 08/19/20 12:00 08/19/20 12:00 08/19/20 12:00 General: Alert, In no apparent distress, Oriented x3 HEENT: Mucous membr. moist/pink, Sclerae nonicteric Neck: Supple Respiratory: Normal air movement, Expiratory wheezes Cardiovascular: No murmurs, Edema (1+ b/l to mid-tibia; L slightly > R), Irregular heart rate/rhythm Gastrointestinal: Soft and benign, Non-distended, No tenderness Musculoskeletal: No erythema, No tenderness Integumentary: No rashes, No breakdown Neurological: Normal speech, Normal strength at 5/5 x4 extr, Normal affect Laboratory Data at Discharge: WBC 28.50 K/uL (4.3-10.9) H* 08/19/20 10:33 Hgb 10.4 g/dL (13.6-17.9) L 08/19/20 10:33 Hct 32.1 % (39.6-49.0) L 08/19/20 10:33 Plt Count 53 K/uL (152-406) L 08/19/20 10:33 Sodium 142 mmol/L (136-145) 08/19/20 08:11 Potassium 3.7 mmol/L (3.5-5.1) 08/19/20 08:11 BUN 23 mg/dL (7-18) H 08/19/20 08:11 Creatinine 0.92 mg/dL (0.55-1.3) 08/19/20 08:11 Glucose 180 mg/dL (74-106) H 08/19/20 08:11 Magnesium 2.2 mg/dL (1.8-2.4) 08/19/20 08:11 Total Bilirubin 0.6 mg/dL (0.2-1.0) 08/19/20 08:11 AST 11 U/L (15-37) L 08/19/20 08:11 ALT 38 U/L (12-78) 08/19/20 08:11 Alkaline Phosphatase 127 U/L (45-117) H 08/19/20 08:11 Troponin I 0.02 ng/mL (0.0-0.045) 08/18/20 16:54 Lipase 87 U/L 08/18/20 10:02 Lipase Cancelled 08/18/20 10:02 Home Medications: RX: Fluticasone/Umeclidin/Vilanter [Trelegy Ellipta 100-62.5-25] 1 puff IH DAILY 04/06/19 RX: Apixaban [Eliquis] 5 mg PO DAILY 09/20/19 RX: Metoprolol Tartrate 100 mg PO DAILY 09/20/19 RX: Albuterol Neb [Proventil 0.083% Neb Soln] 2.5 mg NEB [id number] PRN #20 amp 09/23/19 RX: Allopurinol 300 mg PO DAILY 08/18/20 RX: Furosemide [Lasix] 40 mg PO DAILY 08/18/20 RX: predniSONE [Deltasone*] 100 mg PO SEECOM 08/18/20 RX: Spironolactone [Aldactone*] 25 mg PO DAILY 30 Days #30 tab 08/19/20 RX: predniSONE [Prednisone*] 20 mg PO BID 3 Days #6 tab 08/19/20 New Medications: RX: Spironolactone [Aldactone*] 25 mg PO DAILY 30 Days #30 tab RX: predniSONE [Prednisone*] 20 mg PO BID 3 Days #6 tab Diet: AHA Activity: Ad carlos enrique Followup: Too Burgess MD [ACTIVE - CAN ADMIT] - Nimesh Bowman MD [Primary Care Provider] - Time spent managing pt's care (in minutes): 45
[2020-08-19 18:38] VITALS: BP 147/83
== END 2020-08-19 17:20 | disposition home or self-care (01) ==
LOC: ER 09:04 → ERHOLD 12:55 → INTOOBSV 12:55 → 2ND 14:48
PROVIDERS: ADMIT Hospitalist; ATTEND Hospitalist
DX: I11.0 Hypertensive heart disease with heart failure (principal); I50.23 Acute on chronic systolic (congestive) heart failure; J44.1 Chronic obstructive pulmonary disease with (acute) exacerbation; I48.20 Chronic atrial fibrillation, unspecified; Z79.01 Long term (current) use of anticoagulants; C85.90 Non-Hodgkin lymphoma, unspecified, unspecified site; D72.829 Elevated white blood cell count, unspecified; I71.9 Aortic aneurysm of unspecified site, without rupture; F17.210 Nicotine dependence, cigarettes, uncomplicated; Z66 Do not resuscitate; Z79.899 Other long term (current) drug therapy; Z85.828 Personal history of other malignant neoplasm of skin; Z20.822 Contact with and (suspected) exposure to COVID-19; Z80.9 Family history of malignant neoplasm, unspecified; Z83.6 Family history of other diseases of the respiratory system
CPT/HCPCS: 93005; 87040 ×2; 85025 ×3; 36415 ×2; 83735; 83605; 84443; 84484 ×2; 84439; 83690; 80053 ×2; 84145 ×2; 83880 ×2; 71250; 71045; 97116; 97161; 94640; 94760 ×4; 99285; U0003; J1940 ×3; J0456; J0696; J7050; J2930; 81003; 81015; J7512

== ENCOUNTER 2023-10-29 12:30 | Day surgery (SDC) | payer OTHER, SELFPAY ==
[2023-10-24 13:31] LABS: Absolute Basophils 0.1 K/uL (0-0.5); Absolute Eosinophils 0.2 K/uL (0-0.5); Absolute Lymphocytes (CBC) 2.6 K/uL (0.7-4.9); Absolute Monocytes 1.5 K/uL (0.1-1.3); Absolute Neutrophil 7.7 K/uL (1.8-8.0); Basophils % 0.7 % (0-1.3); Hematocrit 45.7 % (39.6-49.0); Hemoglobin 15.1 g/dL (13.6-17.9); Lymphocytes % 21.5 % (15.3-44.8); MCH 32.3 pg (27.0-35.0); MCHC 33.1 g/dL (32.0-36.0); MCV 97.6 fL (80-100); MPV 10.6 fL (7.6-11.3); Monocytes % 12.1 % (3.3-12.3); Neutrophils % 63.7 % (41.7-73.7); Platelets 95 thou/uL (152-406); RBC Red Blood Cell Count 4.69 M/uL (4.33-5.43); Red Cell Distribution Width 13.7 % (12.1-15.2)
[2023-10-24 13:35] LABS: PT Prothrombin Time 14.6 SECONDS (9.4-12.5); PTT, Activated Partial Thromb 37.3 SECONDS (24.3-36.9); Protime INR 1.31
[2023-10-24 13:44] LABS: Anion Gap 9.4 mEq/L (5.0-15.0); Potassium 4.4 mEq/L (3.5-5.1)
--- NOTE | 2023-10-24 13:50 | RAD REPORT ---
EXAM DESCRIPTION: Tiffanie Jimenes (2 Views)10/24/2023 1:38 pm CLINICAL HISTORY: Preop for cardiac catheterization. History of lymphoma COMPARISON: 2020 FINDINGS: The lungs appear clear of acute infiltrate. The heart is mildly to moderately enlarged IMPRESSION: No acute abnormalities displayed
[2023-10-24 14:08] LABS: Blood Morphology Comment NOT SEEN (NOT SEEN); Platelet Estimate DECR; White Blood Cell Scan OK (OK)
--- NOTE | 2023-10-25 14:39 | EKG ---
Test Date: 2023-10-24 Test Time: 13:09:31 Meat Selector: KAREN MEASUREMENT RESULTS: Intervals: Rate: 69 PA: QRSD: 102 QT: 420 QTc: 450 [place]: P: PA: QRS: 44 T: 184 INTERPRETIVE STATEMENTS: Atrial fibrillation Nonspecific ST and T wave abnormality, probably digitalis effect Abnormal ECG Compared to ECG 08/18/2020 14:54:14 Ventricular premature complex(es) no longer present Possible ischemia no longer present ST (T wave) deviation still present Electronically Signed On 10-25-23 14:38:35 CDT by Stuart Talbot
[2023-10-29] MEDS ORDERED: NA CHLORIDE 0.9% 500 ML ONE (12:39)
[2023-10-29] MEDS ORDERED: MIDAZOLAM HCL 2 MG/2 ML INJ ONE (15:42)
[2023-10-29] MEDS ORDERED: FENTANYL CITR 100 MCG/2 ML ONE (15:43)
[2023-10-29] MEDS ORDERED: HEPA 1000U/500MLS 2,000 UNIT/1,000 ML BAG IV ONE (16:17)
[2023-10-29] MEDS ORDERED: LIDOCAINE 1% 20 ML MDV ONE (16:17)
[2023-10-29 16:33] VITALS: TEMP 97.9
--- NOTE | 2023-10-29 17:00 | OP ---
Date of Procedure: 10/29/2023 Surgeon: DOM AVILA Procedure Performed: Selective bilateral carotid angiogram. Indication: Graft stenosis. Access: Right common femoral artery, 4-Algerian, closed with manual pressure. Complications: None. Bleeding: Less than 50 mL. Anesthesia: Total sedation time was 45 minutes, used fentanyl and Versed. Description Of Procedure: After risks, benefits, and alternatives were explained, patient agreed to the procedure and signed informed consent. The patient was brought into the cardiac catheterization laboratory, prepped and draped in usual sterile fashion. Then, using ultrasound guidance, fluoroscop y, and micropuncture kit, I accessed right common femoral artery, placed 4-Algerian pinnacle sheath and took a 4-Algerian 3DRC catheter into the aortic root and then engaged the right common carotid and too k standard views and the left common carotid, took standard views and removed the catheter and sheath . Manual pressure was used for closure with good hemostasis. Findings: 1.Right common carotid distally is about 40% stenosis and the right internal carotid has diffuse 50% stenosis. 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 Recommendations: Endarterectomy. He will see me in the office, outpatient. /KAMERON Voice ID: [id number] Report ID: [id number]
[2023-10-29] MEDS ORDERED: ACETAMINOPHEN 325 MG TABLET ONE (17:57)
[2023-10-29] MEDS: ACETAMINOPHEN 325 MG TABLET PO PRN (17:58)
[2023-10-29 19:22] VITALS: BP 147/82; O2SAT 100
== END 2023-10-29 17:15 | disposition home or self-care (01) ==
LOC: CCL 12:30
PROVIDERS: ATTEND Internal Medicine
DX: I65.23 Occlusion and stenosis of bilateral carotid arteries (principal); I67.1 Cerebral aneurysm, nonruptured; I25.10 Atherosclerotic heart disease of native coronary artery without angina pectoris; I11.0 Hypertensive heart disease with heart failure; I50.22 Chronic systolic (congestive) heart failure; I48.0 Paroxysmal atrial fibrillation; I71.40 Abdominal aortic aneurysm, without rupture, unspecified; I35.8 Other nonrheumatic aortic valve disorders; I05.9 Rheumatic mitral valve disease, unspecified; E78.5 Hyperlipidemia, unspecified; Z98.890 Other specified postprocedural states; F17.210 Nicotine dependence, cigarettes, uncomplicated; Z79.01 Long term (current) use of anticoagulants; Z79.899 Other long term (current) drug therapy; Z85.72 Personal history of non-Hodgkin lymphomas; Z82.49 Family history of ischemic heart disease and other diseases of the circulatory system; Z83.3 Family history of diabetes mellitus
CPT/HCPCS: 93005; 85025; 80048; 36415; 85610; 85730; 71046; 36222; C1893; C1760; G0269; J2001; J2250; J3010; J7040; 99152

== ENCOUNTER 2024-05-12 13:28 | Emergency (ER) | payer OTHER ==
--- NOTE | 2024-05-12 14:58 | RAD REPORT ---
EXAMINATION: ONE VIEW CHEST XR CLINICAL INDICATION: PALPITATIONS TECHNIQUE: Frontal chest projection is submitted. Examination is limited by patient positioning and t echnique. COMPARISON: 10/24/2023 FINDINGS: The lungs are well inflated and clear. The heart is upper limit of normal in size. No displaced fract ures identified. IMPRESSION: No acute intrathoracic abnormalities.
--- NOTE | 2024-05-12 15:05 | EDPHYS ---
Physician Documentation [facility] Name: Abraham Stark Age: 79 yrs Sex: Male : 1945 Arrival Date: 05/12/2024 Time: 13:28 Bed DX2 Private MD: ED Physician Ashvin March HPI: 05/12 14:50 This 79 yrs old Male presents to ER via Ambulatory with complaints of Irregular Pulse, ms3 low heart beat. 14:50 79-year-old male with past medical history of aortic aneurysm status post repair, COPD, ms3 hypertension, non-Hodgkin's lymphoma, rheumatic fever, congestive heart failure presents to the emergency department physicians office after his primary care stated they could not hear his heartbeat and he had a low pulse. Patient denies dizziness, shortness of breath, chest pain. He denies any symptoms at this time.. Historical: - Allergies: 13:58 No Known Allergies; iw - Home Meds: 13:58 metoprolol tartrate 50 mg Oral tablet 2 times per day [Active]; spironolactone 25 mg iw Oral tablet daily [Active]; furosemide 40 mg Oral tablet daily [Active]; albuterol sulfate 90 mcg/actuation inhalation HFA Aerosol Inhaler every 4 hours [Active]; - PMHx: 13:58 Aneurysm; COPD; Hypertension; NonHodgkin's Lymphoma; RHEUMATIC FEVER; iw 13:58 Congestive heart failure; Atrial fibrillation; iw - PSHx: 13:58 watchman; Carotid endarterectomy; hernia; iw ROS: 14:50 Constitutional: Negative for fever, and chills. Cardiovascular: Negative for chest ms3 pain, and palpitations. Respiratory: Negative for shortness of breath, cough, wheezing, and pleuritic chest pain, Abdomen/GI: Negative for abdominal pain, nausea, vomiting, diarrhea, and constipation, MS/Extremity: Negative for injury and deformity, Skin: Negative for injury, rash, and discoloration, Neuro: Negative for headache, weakness, numbness, tingling. Exam: 14:43 ECG was reviewed by the Attending Physician. ms3 14:50 Constitutional: This is a well developed, well nourished patient who is awake, alert, ms3 and in no acute distress. Respiratory: Lungs have equal breath sounds bilaterally, clear to auscultation and percussion. No rales, rhonchi or wheezes noted. No increased work of breathing, no retractions or nasal flaring. Abdomen/GI: Soft, non-tender, with normal bowel sounds. No distension or tympany. No guarding or rebound. No evidence of tenderness throughout. Skin: Warm, dry with normal turgor. Normal color with no rashes, no lesions, and no evidence of cellulitis. 14:50 Cardiovascular: Rate: normal, Rhythm: irregularly irregular, Pulses: no pulse deficits are appreciated, Heart sounds: normal, normal S1and S2, Vital Signs: 13:56 BP 96 / 54; Pulse 89; Resp 18; Temp 97.8; Pulse Ox 100% on R/A; Weight 80.74 kg; Height iw 5 ft. 10 in. ; Pain 0/10; 13:56 Body Mass Index 25.54 (80.74 kg, 177.8 cm) iw 13:56 Pain Scale: Adult iw MDM: 14:24 Medical Screening Exam initiated ms3 14:50 Differential diagnosis: arrythmia. ms3 15:04 Data reviewed: vital signs, nurses notes, EKG, radiologic studies, and as a result, I ms3 will discharge patient. Independent interpretation of the following test(s) in the Emergency Department EKG: See my EKG interpretation above. Historians other than the Patient: Spouse/Significant Other: Patient's . Counseling: I had a detailed discussion with the patient and/or guardian regarding the historical points, exam findings, and any diagnostic results supporting the discharge/admit diagnosis, radiology results, the need for outpatient follow up, to return to the emergency department if symptoms worsen or persist or if there are any questions or concerns that arise at home. Refusal of service: The patient/guardian displays adequate decision making capability and despite a detailed discussion of alternatives, benefits, risks, and consequences refuses: all lab tests. ED course: Patient has decided to refuse labs. At this time, I reevaluated the patient and discussed the following: a. Capacity: The patient has the capacity to communicate, understand information, and logically process the decision making process. b. Communication of risks: At bedside, I discussed potential risks, outcomes, and alternative approaches in a patientcentered manner. The patient was informed of the specific risks of missed diagnosis, including worsening condition and . The patient understands that they are welcome to return at any time to complete the workup. Patient is discharged from my care with informed refusal.. 05/12 13:40 Order name: XRAY Chest (1 view); Complete Time: 14:59 ms3 05/12 13:40 Order name: EKG; Complete Time: 13:41 ms3 05/12 13:40 Order name: Cardiac monitoring ms3 05/12 13:40 Order name: EKG - Nurse/Tech ms3 05/12 13:40 Order name: IV Saline Lock ms3 05/12 13:40 Order name: Labs collected and sent ms3 05/12 13:40 Order name: O2 Per Protocol ms3 05/12 13:40 Order name: O2 Sat Monitoring ms3 EC:43 Rate is 80 beats/min. Rhythm is irregularly irregular. QRS Paradis is Normal. Clinical ms3 impression: Atrial Fibrillation. Interpreted by me. Reviewed by me. Administered Medications: No medications were administered Disposition Summary: 05/12/24 15:04 Discharge Ordered Notes: Location: Home ms3 Condition: Stable ms3 Diagnosis - Chronic atrial fibrillation ms3 Followup: ms3 - With: Private Physician - When: 1 - 2 days - Reason: Recheck today's complaints Discharge Instructions: - Discharge Summary Sheet ms3 - Atrial Fibrillation ms3 Forms: - Medication Reconciliation Form ms3 - Antibiotic Education ms3 - Prescription Opioid Use ms3 - Patient Portal Instructions ms3 - Leadership Thank You Letter ms3 Signatures: Dispatcher MedHoRayna Villeda RN RN iw Sims, Marcus, DO DO ms3
--- NOTE | 2024-05-12 15:05 | ER ---
Nurse's Notes [facility] Name: Abraham Stark Age: 79 yrs Sex: Male : 1945 Arrival Date: 05/12/2024 Time: 13:28 Bed DX2 Private MD: Diagnosis: Chronic atrial fibrillation Presentation: 05/12 13:56 Chief complaint: Patient states: was sent by PCP for low heart rate, , denies any iw dizziness, they said his heart rate was low in the 40's, has hx of afib and chf. Coronavirus screen: At this time, the client does not indicate any symptoms associated with coronavirus-19. Ebola Screen: No symptoms or risks identified at this time. Initial Sepsis Screen: Does the patient meet any 2 criteria? No. Patient's initial sepsis screen is negative. Does the patient have a suspected source of infection? No. Patient's initial sepsis screen is negative. Risk Assessment: Do you want to hurt yourself or someone else? Patient reports no desire to harm self or others. Onset of symptoms was May 12, 2024. 13:56 Method Of Arrival: Ambulatory iw 13:56 Acuity: KIERSTEN 3 iw Triage Assessment: 14:57 General: Appears in no apparent distress. Behavior is calm, cooperative. Pain: Denies iw pain. Cardiovascular: Patient's skin is warm and dry. Historical: - Allergies: 13:58 No Known Allergies; iw - Home Meds: 13:58 metoprolol tartrate 50 mg Oral tablet 2 times per day [Active]; spironolactone 25 mg iw Oral tablet daily [Active]; furosemide 40 mg Oral tablet daily [Active]; albuterol sulfate 90 mcg/actuation inhalation HFA Aerosol Inhaler every 4 hours [Active]; - PMHx: 13:58 Aneurysm; COPD; Hypertension; NonHodgkin's Lymphoma; RHEUMATIC FEVER; iw 13:58 Congestive heart failure; Atrial fibrillation; iw - PSHx: 13:58 watchman; Carotid endarterectomy; hernia; iw Screenin:12 [facility] ED Fall Risk Assessment (Adult) History of falling in the last 3 months, iw including since admission No falls in past 3 months (0 pts) Confusion or Disorientation No (0 pts) Intoxicated or Sedated No (0 pts) Impaired Gait No (0 pts) Mobility Assist Device Used Yes (1 pt) Altered Elimination No (0 pt) Score/Fall Risk Level 0 - 2 = Low Risk Oriented to surroundings. Abuse screen: Denies threats or abuse. Denies injuries from another. Nutritional screening: No deficits noted. Tuberculosis screening: No symptoms or risk factors identified. Assessment: 14:57 Reassessment: pt refuses lab draw , requesting to be discharged home. iw 15:12 Reassessment: Dr. March spoke with pt, verbalizes understanding of risks involved with iw leaving without labs. Vital Signs: 13:56 BP 96 / 54; Pulse 89; Resp 18; Temp 97.8; Pulse Ox 100% on R/A; Weight 80.74 kg; Height iw 5 ft. 10 in. ; Pain 0/10; 13:56 Body Mass Index 25.54 (80.74 kg, 177.8 cm) iw 13:56 Pain Scale: Adult iw ED Course: 13:34 Patient arrived in ED. al6 13:40 Ashvin March DO is Attending Physician. ms3 13:58 Triage completed. iw 14:33 Missed attempt(s): 24 gauge in right antecubital area. Bleeding controlled, band aid bc6 applied, catheter tip intact. 14:49 XRAY Chest (1 view) In Process Unspecified. EDMS 14:57 Arm band placed on. iw 15:11 No provider procedures requiring assistance completed. IV discontinued, intact, iw bleeding controlled. Patient maintains SpO2 saturation greater than 95% on room air. 15:12 Rayna Salgado, RN is Primary Nurse. iw Administered Medications: No medications were administered Medication: 14:57 VIS not applicable for this client. iw Outcome: 15:04 Discharge ordered by . ms3 15:12 Discharged to home ambulatory, iw 15:12 Condition: good 15:12 Discharge instructions given to patient, Instructed on discharge instructions, follow up and referral plans. Demonstrated understanding of instructions, follow-up care, 15:13 Patient left the ED. iw Signatures: Dispatcher [employer] Rayna Wright, RN RN iw Ashvin March DO DO ms3 Lexii Humphries bc6 Hawa Cardoso al6
[2024-05-12 18:12] VITALS: BP 96/54; TEMP 97.8; O2SAT 100
--- NOTE | 2024-05-13 12:29 | EKG ---
Test Date: 2024-05-12 Test Time: 14:05:54 [employer] Patrol Inspector: K[place] MEASUREMENT RESULTS: Intervals: Rate: 80 CA: QRSD: 96 QT: 414 QTc: 477 Donald: P: CA: QRS: 12 T: 245 INTERPRETIVE STATEMENTS: Atrial fibrillation with premature ventricular or aberrantly conducted complexes Low voltage QRS Nonspecific ST and T wave abnormality Prolonged QT Abnormal ECG Compared to ECG 10/24/2023 13:09:31 Ventricular premature complex(es) now present Low QRS voltage now present Prolonged QT interval now present ST (T wave) deviation still present Electronically Signed On 05-13-24 12:25:44 CDT by Stuart Talbot
== END 2024-05-12 15:13 | disposition home or self-care (01) ==
LOC: ER 13:28
DX: I48.20 Chronic atrial fibrillation, unspecified (principal); I10 Essential (primary) hypertension; I50.9 Heart failure, unspecified; J44.9 Chronic obstructive pulmonary disease, unspecified
CPT/HCPCS: 71045; 93005; 99282